=== PATIENT | female | born 1955 | race Caucasian/White ===

== ENCOUNTER 2022-03-21 04:39 | Emergency (ER) | payer OTHER ==
--- OUTSIDE RECORDS SUMMARY | 2022-03-21 04:54 | XMS REPORT | Continuity of Care Document ---
:1955 Author Organization [facility] t Address [address] [place] [address] [address]. [address]. [address] [place] [address] Care Team Providers Name Role Phone Christy Jaffe MD Primary Care Physician [phone] KEISHA KEBEDE Attending Clinician Unavailable KEISHA KEBEDE Attending Clinician Unavailable ISHMAEL ISABEL Attending Clinician Unavailable RAJI GARCIA Attending Clinician Unavailable LY DEXTER Attending Clinician Unavailable ALBA GONSALES Attending Clinician Unavailable KAN COURTNEY Attending Clinician Unavailable HALIMA ASIF Attending Clinician Unavailable HALIMA ASIF Attending Clinician Unavailable JAMES KYLE Attending Clinician Unavailable PARUL NOWAK Attending Clinician Unavailable NATALIIA GREWAL Attending Clinician Unavailable Arpan CARROLL PhD, Elza Aparicio Attending Clinician [phone] Nataliia Grewal MD Attending Clinician Oseas Meadows CRNA Attending Clinician Venancio Chery MD Attending Clinician Doctor Unassigned, [place] Attending Clinician Unavailable DIO GRAF Attending Clinician Unavailable CHRISTY JAFFE Attending Clinician Unavailable Christy Jaffe MD Attending Clinician [phone] aKn Courtney MD Attending Clinician PARUL PYLE Attending Clinician Unavailable Parul Pyle DO Attending Clinician Yessenia Lin MD Attending Clinician Team, [facility] Attending Clinician Unavailabhi e YESSENIA LIN Attending Clinician Unavailable YESSENIA LIN Attending Clinician Unavailable 2, [facility] Lab Attending Clinician Unavailable 1, [facility] Sleep Lab Bed Attending Clinician Unavailable Only, [facility] Test Attending Clinician Unavailable BOO_MONICA_JANICE Attending Clinician Unavailable EPIFANIO EDGAR Attending Clinician Unavailable Epifanio Edgar MD Attending Clinician Solo GIVENS, Amanda Attending Clinician Unavailable Radha CARROLL PHD, Jayne Attending Clinician Ishmael Isabel DO Attending Clinician Loco Freeman MD Attending Clinician BRODY FERRER Attending Clinician Unavailable Brody Ferrer MD Attending Clinician Kathy Mckeon PA-C Attending Clinician KATHY MCKEON Attending Clinician Unavailable SHWETHA PENNINGTON Attending Clinician Unavailable Shwetha Pennington MD Attending Clinician UNKNOWN, ATTENDING Attending Clinician Unavailable Nurse, [facility] Attending Clinician Unavailable Unknown, Attending Attending Clinician Unavailable HEIDI WILKES Attending Clinician Unavailable Screening/Nona, Eulalia Audio Attending Clinician Unavailable Heidi López Attending Clinician LOCO CALLES Attending Clinician Unavailable OSEAS HI Attending Clinician Unavailable Oseas Hi MD Attending Clinician Raji Garcia MD Attending Clinician Zaire Tobias MD Attending Clinician Gurjit GALLEGOS, Chante A Attending Clinician Giuliana PHD, Fany Putnam Attending Clinician FANY GIORDANO Attending Clinician Unavailable Petra Alvarez Attending Clinician Unavailable Frederick Sellers MD Attending Clinician Ashly Woodson Attending Clinician Unavailable Jose Alfredo GALLEGOS, Yasmin Romo Attending Clinician YASMIN VELIZ Attending Clinician Unavailable Loco Calles MD Attending Clinician CECIL HASTINGS Attending Clinician Unavailable PETRA DE PAZ Attending Clinician Unavailable VERÓNICA RIOS Attending Clinician Unavailable PRAVEEN FARAH Attending Clinician Unavailable YAZMIN DASH Attending Clinician Unavailable CHENTE ROLDAN Attending Clinician Unavailable ZULMA PEREZ Attending Clinician Unavailable QI PINEDO Attending Clinician Unavailable Oseas Ho Attending Clinician GILBERT MCCOY Attending Clinician Unavailable KEVIN BENNETT Attending Clinician Unavailable JAHAIRA NIX Attending Clinician Unavailable KRISTOFER TUBBS Attending Clinician Unavailable KEISHA KEBEDE Admitting Clinician Unavailable ISHMAEL ISABEL Admitting Clinician Unavailable RAJI GARCIA Admitting Clinician Unavailable LY DEXTER Admitting Clinician Unavailable ABLA GONSALES Admitting Clinician Unavailable Nataliia Grewal MD Admitting Clinician NATALIIA GREWAL Admitting Clinician Unavailable HALIMA ASIF Admitting Clinician Unavailable CHRISTY JAFFE Admitting Clinician Unavailable [place]APIN[place]O Admitting Clinician Unavailable EPIFANIO EDGAR Admitting Clinician Unavailable Epifanio Edgar MD Admitting Clinician Raji Garcia MD Admitting Clinician ZULMA PEREZ Admitting Clinician Unavailable Oseas Ho Admitting Clinician KEVIN BENNETT Admitting Clinician Unavailable VERÓNICA RIOS Admitting Clinician Unavailable Payers Payer Name Policy Type Policy Number Effective Date Expiration Date S ource [place] [id number] 2021 CLASSIC NO PREMIUM 00:00:00 O [facility] [id number] 2017 00:00:00 AARP MEDICARE RX [id number] SAVER PLUS (PDP) MEDICARE PART A [id number] 2020 \\T\\ B 00:00:00 Problems Condition Condition Condition Status Onset Resolution Last Treating Co mments Source Name Details Category Date Date Treatment Clinician Date 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 Added automatic ally from request for surgery [id number] Celiac Celiac Disease Active Overview: Univer s disease disease 3-09 Formattin ity o f 00:00: g of this note Medical might be Branch different from the original. Added automatic ally from request for surgery [id number] Thyroid Thyroid Disease Active Overview: Univ ers nodule nodule 8-02 Formattin ity of 00:00: g of this note Medical might be Branch different from the original. Added automatic ally from request for surgery [id number] Other Other Disease Active Overview: Univer s dysphagia dysphagia 8-02 Formattin i ty of 00:00: g of this note Medical might be Branch different from the original. Added automatic ally from request for surgery [id number] Obesity Obesity Disease Active Univers (BMI (BMI 6-16 ity of 30-39.9) 30-39.9) 00:00: [place] 00 Medical Branch Dizziness Dizziness Disease Active Uni vers 6-16 ity of 00:00: [place] 00 Medical Branch Meniere Meniere Disease Active Univers disease, disease, 6-16 ity of bilateral bilateral 00:[place] Bilateral Bilateral Disease Active Uni vers sensorineu sensorineu 4-20 it y of ral ral 00:00: [place] hearing hearing 00 Medical loss loss Branch Otalgia of Otalgia of Disease Active 2021-0 U nivers both ears both ears 4-20 ity of 00:00: [place] 00 Medical Branch Myalgia Myalgia Disease Active Univers 4-20 ity of 00:00: [place] [facility] Other Other Disease Active Univers depression depression 4-20 it y of 00:00: [place] [facility] Anxiety Anxiety Disease Active Univers 4-20 ity of 00:00: Medical Branch 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 4-20 ity of 00:00: Medical Branch Chronic Chronic Disease Active Univers allergic allergic 4-20 ity of rhinitis rhinitis 00:00: [place] [facility] Cigarette Cigarette Disease Active Uni vers nicotine nicotine 4-20 ity of dependence dependence [place] 00 Medical remission remission Bran ch Dental Dental Disease Active Univers cavities cavities 1-15 ity of 00:00: [place] [facility] Bronchiect Bronchiect Disease Active 2019-05 U nivers asis asis 2-30 ity of without without 00:00: [place] complicati complicati 00 Me dical on on Branch Essential Essential Disease Active 2019-05 Uni vers hypertensi hypertensi 2-30 it y of on on 00:00: [place] 00 Medical Branch Headache, Headache, Disease Active 2019-05 Uni vers unspecifie unspecifie 2-30 it y of d headache d headache 00:00[place] type type 00 Medical Branch Achilles Achilles Disease Active Unive rs tendonitis tendonitis 8-13 it y of , , 00:00: [place] bilateral bilateral 00 Medi milagros Branch Generalize Generalize Disease Active 2020- U nivers d d 5-15 ity of osteoarthr osteoarthr 00:[place]: [place] it[place] itis 00 Medical Branch Chronic Chronic Disease Active 2020- Univers fatigue fatigue 5-15 ity of 00:00: [place] 00 Medical Branch Other Other Disease Active 2020- Univers insomnia insomnia 5-15 ity of 00:00: [place] 00 Medical Branch History of History of Disease Active Overview : Univers colon colon 2-28 Formattin ity of polyps polyps 00:00: g of this [place] 00 note Medical might be Branch different from the original. Added automatic ally from request for surgery [id number] Mold Mold Disease Active 2018-05 Univers suspected suspected 0-20 ity of exposure exposure 00:00: [place] 00 Medical Branch Bronchitis Bronchitis Disease Active 2018-05 U nivers 0-18 ity of 00:00: [place] 00 Medical Branch Ankle pain Ankle Problem Active 2020-02-16 M emoria (finding) pain - 04:00:57 l (finding) 00:00: Jean Active 00 05/15/2018 Problem 02/16/2020 right ankle tear [facility] Fibromyalg Fibromyalg Disease Active 2017-05 U nivers ia ia 0-03 ity of 00:00: [place] [facility] Vaginal Vaginal Disease Active 2017-05 Univers dryness, dryness, 0-03 ity of menopausal menopausal 00:[place]: [place] [facility] [place] Polyarthra Polyarthra Disease Active 2017-05 U nivers lgia lgia 0-03 ity of 00:00: [place] [facility] Gluten Gluten Problem Active 2020-02-16 Brett leeann sensitivit sensitivit 04:00:57 l y y Jean (disorder) (disorder) Active Problem 02/16/2020 BLISTERS, DIARRHEA, HIVES BREAKOUT [facility] Allergy - Allergy - Problem Active 2020-02-16 Mem[facility] specialty specialty 04:00:57 l (qualifier (qualifier He rmann value) value) Active Problem 02/16/2020 [facility] Asthma Asthma Problem Active 2020-02-16 Brett leeann (disorder) (disorder) 04:00:57 l Active [place] Problem 02/16/2020 [facility] History of Past Illness Condition Condition Condition Status Onset Resolution Last Treating Co mments Source Name Details Category Date Date Treatment Clinician Date Achilles Achilles Problem 2019-052020-02-16 2020-02-16 [facility] tendinitis tendinitis 0-02 04:00:57 04:00:57 l , right , right 17:00: Jean leg leg 00 02/14/2020 02/16/2020 [facility] Allergies, Adverse Reactions, Alerts Allergy Allergy Status Severity Reaction(s) Onset Inactive Treating Comm ents Source Name Type Date Date Clinician Duloxeti Propensi Active Other - See Severe U nivers ne ty to comments 2-03 depressio ity o f adverse 00:00: n, weight [place] reaction 00 gain Medical s Branch DULOXETI DRUG Active Other-Cmnt Univ ers NE INGREDI 2-03 ity of 00:00: [place] 00 Medical Branch [place] Propensi Active Unknown - 2019-0 Uni vers ast ty to See comments 5-19 ity of adverse 00:00: [place] reaction 00 Medical s Branch MONTELUK DRUG Active Unknown-Cmnt 2019 Un anu AST INGREDI 5-19 ity of 00:00: [place] 00 Medical Branch Diphenhy Propensi Active Unknown - 2019-0 Second Uni vers dramine ty to See comments 2-18 dose is it y of Hcl adverse 00:00: very [place] reaction 00 activatio Medic al s n, like Branch she is on speed. DIPHENHY DRUG Active Unknown-Cmnt Un anu DRAMINE INGREDI 2-18 ity of HCL 00:00: [place] 00 Medical Branch Gluten Propensi Active Unknown - 2018-0 Unive rs ty to See comments 6-07 ity of adverse 00:00: [place] reaction 00 Medical s Branch Mold Propensi Active Unknown - 2018-0 Unive rs ty to See comments 6-07 ity of adverse 00:00: [place] reaction 00 Medical s Branch Sulfa Propensi Active Hives 2018-0 Univers (Sulfona ty to 6-07 ity of mide adverse 00:00: [place] Antibiot reaction 00 Medica l ics) s Branch GLUTEN DRUG Active Unknown-Cmnt 2018-0 Univ ers INGREDI 6-07 ity of 00:00: [place] 00 Medical Branch MOLD DRUG Active Unknown-Cmnt 2018-0 Univ ers INGREDI 6-07 ity of 00:00: [place] 00 Medical Branch SULFA Drug Active Hives 2018-0 Univers (SULFONA Class 6-07 ity of MIDE 00:00: [place] ANTIBIOT 00 Medical ICS) Branch Glutens Glutens Active Memoria l [place] sulfa sulfa Active Mild [facility] drugs drugs l [place] Social History Social Habit Start Date Stop Date Quantity Comments Source History of Current smoker University of tobacco use [facility] [place] Exposure to 2022-02-21 2022-03-03 Not sure University of SARS-CoV-2 00:00:00 09:23:00 [place] [facility] (event) Branch Alcohol intake 2022-03-01 2022-03-01 Current University of 00:00:00 00:00:00 non-drinker of [facility] alcohol (finding) Branch Tobacco use and 2021-12-132021-12-13 Smokeless tobacco Un iversity of exposure 00:00:00 00:00:00 non-user [facility] [place] Social History 2020-02-07 2020-02-07 Eric richardson 14:51:13 14:51:13 [birth year] Universit y of 00:00:00 00:00:00 [facility] [place] Smoking Status Start Date Stop Date Source Ex-smoker 2021-12-13 00:00:00 2021-12-13 00:00:00 Universi ty of [facility] [place] Medications Ordered Filled Start Stop Current Ordering Indication Dosage Frequency Signature Comments Components Source Medication Medication Date Date Medication? Clinician (SIG) Name Name neomycin-po 2021-05- Yes .5[in_u 0.5 Inch, Univers lymyxin-dex 0-25 10-28 s] Right Eye, i ty of amethasone 19:00: 16:59 QID, 12 Asher as (MAXITROL) 00 :00 doses, Medical 3.5 First dose Branch mg/g-10,000 on Tue unit/g-0.1 03/08/22 % at 1400, ophthalmic Last dose ointment on Fri 0.5 Inch 03/11/22 at 0800, Routine, PACU neomycin-po 2021-05- No .5[in_u 0.5 Inch, Univers lymyxin-dex 0-25 10-25 s] Right Eye, i ty of amethasone 19:00: 22:20 QID, 12 Asher as (MAXITROL) 00 :36 doses, Medical 3.5 First dose Branch mg/g-10,000 on Tue unit/g-0.1 03/08/22 % at 1400, ophthalmic Last dose ointment on Fri 0.5 Inch 03/11/22 at 0800, Routine, PACU acetaminoph 2021-05 Yes 650mg 650 mg, Un anu en 0-25 Oral, PRN, ity of (TYLENOL) 17:16: 1 dose, [place] tablet 650 44 Starting Medic al mg on Tue Branch 03/08/22 at 1216, Until Discontinu ed, Routine, Pain (scale 1-3), [facility] Recovery HYDROcodone 2021-05- No 1{tbl} 1 tablet, Univers -acetaminop 0-25 10-25 Oral, PRN, i ty of hen (NORCO 17:16: 17:20 1 dose, [place] as 5) 5-325 mg 44 :00 Starting Medi milagros tablet 1 on [facility] tablet 03/08/22 at 1216, Until Mon03/08/22 at 1220, Routine, Pain (scale 7-10), DSU Recovery HYDROcodone 2021-05- No 1{tbl} 1 tablet, Univers -acetaminop 0-25 10-25 Oral, PRN, i ty of hen (NORCO 17:16: 17:20 1 dose, [place] as 5) 5-325 mg 44 :00 Starting Medi milagros tablet 1 on [facility] tablet 03/08/22 at 1216, Until Mon03/08/22 at 1220, Routine, Pain (scale 7-10), [facility]SU Recovery acetaminoph 2021-05- No 650mg 650 mg, U nivers en 0-25 10-25 Oral, PRN, ity of (TYLENOL) 17:16: 22:20 1 dose, [place] tablet 650 44 :36 Starting Medic al mg on [facility] Branch 03/08/22 at 1216, Until Mon03/08/22 at 1720, Routine, Pain (scale 1-3), DSU Recovery ondansetron 2021-05- No Slow IV Un anu (ZOFRAN 0-25 10-25 Push, ONCE ity o f (PF)) 16:10: 16:29 INTRA [place] injection 00 :08 PROCEDURE, Medi milagros Starting Branch on Mon03/08/22 at 1110, Until Discontinu ed, Routine, Intra-op ergocalcife 2021-05 Yes Take by Uni vers rol, 0-25 mouth. ity of vitamin D2, 15:20: [place] (VITAMIN D 36 Medical ORAL) Branch vitamin C 2021-05 Yes 100mg Take 100 Uni vers 100 mg 0-25 mg by ity of tablet 15:20: mouth [place] 36 daily. Medical Branch Lactobacill 2021-05 Yes 1{capsu Take 1 U nivers us 0-25 le} capsule by ity of acidophilus 15:20: [place]. [place] (PROBIOTIC 36 Medical ACIDOPHILUS Branch ORAL) cyanocobala 2021-05 Yes 1000ug 1,000 mcg Univers min 1,000 0-25 by ity of mcg/mL 15:20: Intramuscu [place] injection 36 lar route Medic al weekly. Monday ergocalcife 2021-05 Yes Take by Uni vers rol, 0-25 mouth. ity of vitamin D2, 15:20: [place] (VITAMIN D 36 Medical ORAL) [place] vitamin C 2021-05 Yes 100mg Take 100 Uni vers 100 mg 0-25 mg by ity of tablet 15:20: mouth [place] 36 daily. Medical Branch Lactobacill 2021-05 Yes 1{capsu Take 1 U nivers us 0-25 le} capsule by ity of acidophilus 15:20: [place]. [place] (PROBIOTIC 36 Medical ACIDOPHILUS [place] ORAL) cyanocobala 2021-05 Yes 1000ug 1,000 mcg Univers min 1,000 0-25 by ity of mcg/mL 15:20: Intramuscu [place] injection 36 lar route Medic al weekly. Monday ergocalcife 2021-05 Yes Take by Uni vers rol, 0-25 mouth. ity of vitamin D2, 15:20: [place] (VITAMIN D 36 Medical ORAL) [place] vitamin C 2021-05 Yes 100mg Take 100 Uni vers 100 mg 0-25 mg by ity of tablet 15:20: mouth [place] 36 daily. Medical Branch Lactobacill 2021-05 Yes 1{capsu Take 1 U nivers us 0-25 le} capsule by ity of acidophilus 15:20: [place]. [place] (PROBIOTIC 36 [facility] ACIDOPHILUS [place] ORAL) cyanocobala 2021-05 Yes 1000ug 1,000 mcg Univers min 1,000 0-25 by ity of mcg/mL 15:20: Intramuscu [place] injection 36 lar route Medic al weekly. Monday ergocalcife 2021-05 Yes Take by Uni vers rol, 0-25 mouth. ity of vitamin D2, 15:20: [place] (VITAMIN D 36 Medical ORAL) [place] vitamin C 2021-05 Yes 100mg Take 100 Uni vers 100 mg 0-25 mg by ity of tablet 15:20: mouth [place] 36 daily. Medical Branch Lactobacill 2021-05 Yes 1{capsu Take 1 U nivers us 0-25 le} capsule by ity of acidophilus 15:20: [place]. [place] (PROBIOTIC 36 Medical ACIDOPHILUS [place] ORAL) ergocalcife 2021-05 Yes Take by Uni vers rol, 0-25 mouth. ity of vitamin D2, 15:20: [place] (VITAMIN D 36 Medical ORAL) [place] vitamin C 2021-05 Yes 100mg Take 100 Uni vers 100 mg 0-25 mg by ity of tablet 15:20: mouth [place] 36 daily. Medical Branch Lactobacill 2021-05 Yes 1{capsu Take 1 U nivers us 0-25 le} capsule by ity of acidophilus 15:20: [place]. [place] (PROBIOTIC 36 Medical ACIDOPHILUS Branch ORAL) ergocalcife 2021-05 Yes Take by Uni vers rol, 0-25 mouth. ity of vitamin D2, 15:20: [place] (VITAMIN D 36 Medical ORAL) [place] vitamin C 2021-05 Yes 100mg Take 100 Uni vers 100 mg 0-25 mg by ity of tablet 15:20: mouth [place] 36 daily. Medical Branch Lactobacill 2021-05 Yes 1{capsu Take 1 U nivers us 0-25 le} capsule by ity of acidophilus 15:20: mouth. [place] (PROBIOTIC 36 Medical ACIDOPHILUS Branch ORAL) cyanocobala 2021-05 Yes 1000ug 1,000 mcg Univers min 1,000 0-25 by ity of mcg/mL 15:20: Intramuscu [place] injection 36 lar route Medic al weekly. Monday ergocalcife 2021-05 Yes Take by Uni vers rol, 0-25 mouth. ity of vitamin D2, 15:20: [place] (VITAMIN D 36 Medical ORAL) [place] vitamin C 2021-05 Yes 100mg Take 100 Uni vers 100 mg 0-25 mg by ity of tablet 15:20: mouth [place] 36 daily. Medical Branch Lactobacill 2021-05 Yes 1{capsu Take 1 U nivers us 0-25 le} capsule by ity of acidophilus 15:20: [place]. [place] (PROBIOTIC 36 Medical ACIDOPHILUS Branch ORAL) cyanocobala 2021-05 Yes 1000ug 1,000 mcg Univers min 1,000 0-25 by ity of mcg/mL 15:20: Intramuscu [place] injection 36 lar route Medic al weekly. Monday ergocalcife 2021-05 Yes Take by Uni vers rol, 0-25 mouth. ity of vitamin D2, 15:20: [place] (VITAMIN D 36 Medical ORAL) Branch vitamin C 2021-05 Yes 100mg Take 100 Uni vers 100 mg 0-25 mg by ity of tablet 15:20: mouth [place] 36 daily. Medical Branch Lactobacill 2021-05 Yes 1{capsu Take 1 U nivers us 0-25 le} capsule by ity of acidophilus 15:20: mouth. [place] (PROBIOTIC 36 Medical ACIDOPHILUS Branch ORAL) ergocalcife 2021-05 Yes Take by Uni vers rol, 0-25 mouth. ity of vitamin D2, 15:20: [place] (VITAMIN D 36 Medical ORAL) Branch vitamin C 2021-05 Yes 100mg Take 100 Uni vers 100 mg 0-25 mg by ity of tablet 15:20: mouth [place] 36 daily. Medical Branch Lactobacill 2021-05 Yes 1{capsu Take 1 U nivers us 0-25 le} capsule by ity of acidophilus 15:20: mouth. [place] (PROBIOTIC 36 Medical ACIDOPHILUS Branch ORAL) bupivacaine 2021-05 Yes PRN, Univer s (preserv 0-25 Starting ity of free) 0.5% 14:37: on Mon (SENSORCAIN 00 03/08/22 Medi milagros E MPF) 0.5 at 0937, Branc h % (5 mg/mL) Intra-op 30 mL, lidocaine-e pinephrine (XYLOCAINE W/EPINEPHRI NE) 1 %-1:200,000 30 mL, NaCl 0.9% (NS) 30 mL bupivacaine 2021-05- No PRN, Unive rs (preserv 0-25 10-25 Starting ity of free) 0.5% 14:37: 22:20 on [place] (SENSORCAIN 00 :36 03/08/22 Medi milagros E MPF) 0.5 at 0937, Branc h % (5 mg/mL) Intra-op 30 mL, lidocaine-e pinephrine (XYLOCAINE W/EPINEPHRI NE) 1 %-1:200,000 30 mL, NaCl 0.9% (NS) 30 mL PHENYLephri 2021-05- No Slow IV Un anu ne 1000 0-25 10-25 Push, ONCE ity o f mcg/10 mL 13:44: 16:29 INTRA [place] in 0.9% 00 :08 PROCEDURE, Medica l NaCl Starting Branch syringe on Mon03/08/22 at 0844, Until Discontinu ed, Routine, Intra-op isosulfan 2021-05 Yes PRN, Univers blue 0-25 Starting ity of (LYMPHAZURI 13:14: on Mon [place] N) 1 % 00 03/08/22 Medical injection at 0814, Branch Until Discontinu ed, Routine, Intra-op isosulfan 2021-05- No PRN, Univers blue 0-25 10-25 Starting ity of (LYMPHAZURI 13:14: 22:20 on Mon [place] as N) 1 % 00 :36 03/08/22 Medical injection at 0814, Branch Until Mon03/08/22 at 1720, Routine, Intra-op water for 2021-05 Yes PRN, Univers irrigation 0-25 Starting ity o f irrigation 13:09: on solution 03/08/22 Medical at 0809, Branch Until Discontinu ed, Routine, Intra-op heparin 2021-05 Yes PRN, Univers lock flush 0-25 Starting ity o f (HEPARIN 13:09: on Mon LOCKFLUSH(P 00 03/08/22 Medi milagros ORCINE)(PF) at 0809, Bran ch ) 100 Until unit/mL Discontinu injection ed, Routine, Intra-op NaCl 0.9% 2021-05 Yes PRN, Univers (NS) 0-25 Starting ity of injection 13:09: on Mon [place] 03/08/22 Medical at 0809, Branch Until Discontinu ed, Routine, Intra-op hydrogen 2021-05 Yes PRN, Univers peroxide 3 0-25 Starting ity o f % topical 13:09: on solution 03/08/22 Medical at 0809, Branch Until Discontinu ed, Routine, Intra-op water for 2021-05 Yes PRN, Univers irrigation 0-25 Starting ity o f irrigation 13:09: on solution 03/08/22 Medical at 0809, Branch Until Discontinu ed, Routine, Intra-op water for 2021-05- No PRN, Univers irrigation 0-25 10-25 Starting ity of irrigation 13:09: 22:20 on [place] solution 00 :36 03/08/22 Medical at 0809, Branch Until Mon03/08/22 at 1720, Routine, Intra-op heparin 2021-05- No PRN, Univers lock flush 0-25 10-25 Starting ity of (HEPARIN 13:09: 22:20 on [facility] LOCKFLUSH(P 00 :36 03/08/22 Medi milagros ORCINE)(PF) at 0809, Bran ch ) 100 Until e unit/mL 03/08/22 injection at 1720, Routine, Intra-op NaCl 0.9% 2021-05- No PRN, Univers (NS) 0-25 10-25 Starting ity of injection 13:09: 22:20 on [facility] [place] 00 :36 03/08/22 Medical at 0809, Branch Until Mon03/08/22 at 1720, Routine, Intra-op hydrogen 2021-05- No PRN, Univers peroxide 3 0-25 10-25 Starting ity of % topical 13:09: 22:20 on [facility] solution 00 :36 03/08/22 Medical at 0809, Branch Until Mon03/08/22 at 1720, Routine, Intra-op water for 2021-05- No PRN, Univers irrigation 0-25 10-25 Starting ity of irrigation 13:09: 22:20 on [facility] [place] solution 00 :36 03/08/22 Medical at 0809, Branch Until Mon03/08/22 at 1720, Routine, Intra-op ceFAZolin 2021-05- No Intravenou U nivers (ANCEF) 0-25 10-25 s, ONCE ity of injection 13:02: 16:29 INTRA [place] 00 :08 PROCEDURE, Medical Starting Branch on Mon03/08/22 at 0802, Until Discontinu ed, HECTOR, Intra-op Tc 99m-ulises. 2021-05- No [id number] 1.1mCi 1.1 Univers sulfur 0-25 10-25 millicurie ity of colloid 13:00: 12:47 , [place] injection 00 :00 Intraderma Medi milagros 1.1 l, ONCE, 1 Branch millicurie dose, On Mon03/08/22 at 0800, Routine rocuronium 2021-05- No IV Push, Un anu (ZEMURON) 0-25 10-25 ONCE INTRA ity of injection 12:46: 16:29 PROCEDURE, [place] 00 :08 Starting Medical on [facility] Branch 03/08/22 at 0746, Until Discontinu ed, Routine, Intra-op propofoL IV 2021-05- No Intravenou Univers infusion 0-25 10-25 s, ONCE ity of 12:46: 16:29 INTRA [place] 00 :08 PROCEDURE, Medical Starting Branch on Mon03/08/22 at 0746, Until Discontinu ed, Routine, Intra-op FENTanyl PF 2021-05- No Intravenou Univers (SUBLIMAZE 0-25 10-25 s, ONCE ity o f (PF)) 12:45: 16:29 INTRA [place] injection 00 :08 PROCEDURE, Medi milagros Starting Branch on Mon03/08/22 at 0745, Until Discontinu ed, Routine, Intra-op dexamethaso 2021-05- No IV Push, U nivers ne 0-25 10-25 ONCE INTRA ity of (DECADRON 12:45: 16:29 PROCEDURE, [place] PHOSPHATE) 00 :08 Starting Medic al injection on [facility] Branch 03/08/22 at 0745, Until Discontinu ed, Routine, Intra-op lidocaine 2021-05- No Intravenou U nivers 1% 0-25 10-25 s, ONCE ity of (XYLOCAINE) 12:44: 16:29 [place]TRA [place] 100 mg/10 00 :08 PROCEDURE, [facility]ros mL (1 %) Starting Branch injection on 03/08/22 at 0744, Until Discontinu ed, Routine, Intra-op lactated 2021-05- No IV [facility] ringers IV 0-25 10-25 Infusion, ity of infusion 12:38: 16:29 CONTINUOUS [place] 00 :08 PRN, Medical Starting Branch on Mon03/08/22 at 0738, Until Discontinu ed, Routine, Intra-op midazolam 2021-05- No IV Push, Uni vers (VERSED) 0-25 10-25 ONCE INTRA ity of injection 12:38: 16:29 PROCEDURE, [place] 00 :08 Starting Medical on [facility] 03/08/22 at 0738, Until Discontinu ed, Routine, Intra-op cyanocobala 2021-05 Yes 1000ug 1,000 mcg [facility] min 1,000 0-25 by ity of mcg/mL 11:50: Intramuscu [place] injection 52 lar route Medic al weekly. Branch monday acetaminoph 2021-05- No 1000mg 1,000 mg, Univers en 0-25 10-25 Oral, ity of (TYLENOL) 11:45: 12:09 ONCE, 1 [place] 00 :00 dose, On Medical 1,000 mg [facility] 03/08/22 at 0645, Routine celecoxib 2021-05- No 200mg 200 mg, Uni vers (CELEBREX) 0-25 10-25 Oral, ity of capsule 200 11:45: 12:09 ONCE, 1 [place] mg 00 :00 dose, On Medical [facility] 03/08/22 at 0645, Routine acetaminoph 2021-05- No 1000mg 1,000 mg, Univers en 0-25 10-25 Oral, ity of (TYLENOL) 11:45: 12:09 ONCE, 1 [place] 00 :00 dose, On Medical 1,000 mg [facility] 03/08/22 at 0645, Routine celecoxib 2021-05- No 200mg 200 mg, Uni vers (CELEBREX) 0-25 10-25 Oral, ity of capsule 200 11:45: 12:09 ONCE, 1 [place] mg 00 :00 dose, On Medical [facility] 03/08/22 at 0645, Routine ergocalcife 2021-05 Yes Take by Uni vers rol, 0-25 mouth. ity of vitamin D2, 11:38: [place] (VITAMIN D Medical ORAL) [place] vitamin C 2021-05 Yes 100mg Take 100 Uni vers 100 mg 0-25 mg by ity of tablet 11:38: mouth [place] 03 daily. [facility] Branch Lactobacill 2021-05 Yes 1{capsu Take 1 U nivers us 0-25 le} capsule by [place]y of acidophilus 11:38: [place]. [place] (PROBIOTIC 03 Medical ACIDOPHILUS [place] ORAL) celecoxib 2021-05 Yes [id number] 200mg Take 1 [facility] (CELEBREX) 0-25 [id number] capsule by it y of 200 mg 00:00: mouth in [place] capsule 00 the Medical morning Branch and 1 capsule in the evening. Take with meals. traMADoL 50 2021-05 Yes [id number] 50mg Take 1 Univ ers mg tablet 0-25 tablet by ity o f 00:00: mouth [place] 00 every 6 Medical (six) Branch hours as needed for Pain (scale 7-10) for up to 20 doses. Indication s: acute pain celecoxib 2021-05 Yes [id number] 200mg Take 1 [facility] (CELEBREX) 0-25 [id number] capsule by it y of 200 mg 00:00: mouth in [place] capsule 00 the Medical morning Branch and 1 capsule in the evening. Take with meals. traMADoL 50 2021-05 Yes [id number] 50mg Take 1 Univ ers mg tablet 0-25 tablet by ity o f 00:00: mouth [place] 00 every 6 Medical (six) Branch hours as needed for Pain (scale 7-10) for up to 20 doses. Indication s: acute pain celecoxib 2021-05 Yes [id number] 200mg Take 1 [facility] (CELEBREX) 0-25 [id number] capsule by it y of 200 mg 00:00: mouth in [place] capsule 00 the Medical morning Branch and 1 capsule in the evening. Take with meals. traMADoL 50 2021-05 Yes [id number] 50mg Take 1 Univ ers mg tablet 0-25 tablet by ity o f 00:00: mouth [place] 00 every 6 Medical (six) Branch hours as needed for Pain (scale 7-10) for up to 20 doses. Indication s: acute pain celecoxib 2021-05 Yes [id number] 200mg Take 1 [facility] (CELEBREX) 0-25 [id number] capsule by it y of 200 mg 00:00: mouth in [place] capsule 00 the Medical morning Branch and 1 capsule in the evening. Take with meals. traMADoL 50 2021-05 Yes [id number] 50mg Take 1 Univ ers mg tablet 0-25 tablet by ity o f 00:00: mouth [place] 00 every 6 Medical (six) Branch hours as needed for Pain (scale 7-10) for up to 20 doses. Indication s: acute pain acetaminoph 2021-05- Yes [id number] 650mg Take 2 [facility] en 0-25 11-03 43301 tablets by ity of (TYLENOL) 00:00: 04:59 mouth [place] 325 mg 00 :00 every 6 Medical tablet (six) Branch hours for 30 doses. acetaminoph 2021-05- Yes [id number] 650mg Take 2 Univers en 0-25 11- 72617 tablets by ity of (TYLENOL) 00:00: 04:59 mouth [place] 325 mg 00 :00 every 6 Medical tablet (six) Branch hours for 30 doses. acetaminoph 2021-05- Yes [id number] 650mg Take 2 Univers en 0-25 11- 85481 tablets by ity of (TYLENOL) 00:00: 04:59 mouth [place] 325 mg 00 :00 every 6 Medical tablet (six) Branch hours for 30 doses. acetaminoph 2021-05- Yes [id number] 650mg Take 2 Univers en 0-25 11- 53009 tablets by ity of (TYLENOL) 00:00: 04:59 mouth [place] 325 mg 00 :00 every 6 Medical tablet (six) Branch hours for 30 doses. cyanocobala 2021-05- No [id number] 2000ug Univers min (DODEX) 0-18 10-18 ity of injection 23:15: 22:10 [place] 2,000 mcg 00 :23 Medical Branch cyanocobala 2021-05- No [id number] 2000ug [facility] min (DODEX) 0-18 10-18 ity of injection 23:15: 22:10 [place] 2,000 mcg 00 :23 [facility] Branch alendronate 2021-05 Yes [id number] 35mg Take 1 [facility] 35 mg 0-18 tablet by ity of tablet 00:00: mouth [place] 00 weekly. Medical Branch alendronate 2021-05 Yes [id number] 35mg Take 1 [facility] 35 mg 0-18 tablet by ity of tablet 00:00: mouth [place] 00 weekly. Medical Branch alendronate 2021-05 Yes [id number] 35mg Take 1 [facility] 35 mg 0-18 tablet by ity of tablet 00:00: mouth [place] 00 weekly. Medical Branch alendronate 2021-05 Yes [id number] 35mg Take 1 [facility] 35 mg 0-18 tablet by ity of tablet 00:00: mouth [place] 00 weekly. Medical Branch alendronate 2021-05 Yes [id number] 35mg Take 1 [facility] 35 mg 0-18 tablet by ity of tablet 00:00: mouth [place] 00 weekly. [facility] Branch alendronate 2021-05 Yes [id number] 35mg Take 1 [facility] 35 mg 0-18 tablet by ity of tablet 00:00: mouth [place] 00 weekly. Medical Branch alendronate 2021-05 Yes [id number] 35mg Take 1 [facility] 35 mg 0-18 tablet by ity of tablet 00:00: mouth [place] 00 weekly. Medical Branch alendronate 2021-05 Yes [id number] 35mg Take 1 [facility] 35 mg 0-18 tablet by ity of tablet 00:00: mouth [place] 00 weekly. Medical Branch proMETHazin 2021-05 Yes [id number] 25mg Take 1 Univers e 25 mg 0-03 tablet by ity of tablet 00:00: mouth [place] 00 every 6 Medical (six) Branch hours. For vertigo, nausea, dizziness. proMETHazin 2021-05 Yes [id number] 25mg Take 1 Univers e 25 mg 0-03 tablet by ity of tablet 00:00: mouth [place] 00 every 6 Medical (six) Branch hours. For vertigo, nausea, dizziness. proMETHazin 2021-05 Yes [id number] 25mg Take 1 [facility] e 25 mg 0-03 tablet by ity of tablet 00:00: mouth [place] 00 every 6 Medical (six) Branch hours. For vertigo, nausea, dizziness. proMETHazin 2021-05 Yes [id number] 25mg Take 1 [facility] e 25 mg 0-03 tablet by ity of tablet 00:00: mouth [place] 00 every 6 Medical (six) Branch hours. For vertigo, nausea, dizziness. proMETHazin 2021-05 Yes [id number] 25mg Take 1 [facility] e 25 mg 0-03 tablet by ity of tablet 00:00: mouth [place] 00 every 6 Medical (six) Branch hours. For vertigo, nausea, dizziness. proMETHazin 2021-05 Yes [id number] 25mg Take 1 [facility] e 25 mg 0-03 tablet by ity of tablet 00:00: mouth [place] 00 every 6 Medical (six) Branch hours. For vertigo, nausea, dizziness. proMETHazin 2021-05 Yes [id number] 25mg Take 1 Univers e 25 mg 0-03 tablet by ity of tablet 00:00: mouth [place] 00 every 6 Medical (six) Branch hours. For vertigo, nausea, dizziness. proMETHazin 2021-05 Yes [id number] 25mg Take 1 Univers e 25 mg 0-03 tablet by ity of tablet 00:00: mouth [place] 00 every 6 Medical (six) Branch hours. For vertigo, nausea, dizziness. proMETHazin 2021-05 Yes [id number] 25mg Take 1 Univers e 25 mg 0-03 tablet by ity of tablet 00:00: mouth [place] 00 every 6 Medical (six) Branch hours. For vertigo, nausea, dizziness. proMETHazin 2021-05 Yes [id number] 25mg Take 1 Univers e 25 mg 0-03 tablet by ity of tablet 00:00: mouth [place] 00 every 6 Medical (six) Branch hours. For vertigo, nausea, dizziness. proMETHazin 2021-05 Yes [id number] 25mg Take 1 Univers e 25 mg 0-03 tablet by ity of tablet 00:00: mouth [place] 00 every 6 Medical (six) Branch hours. For vertigo, nausea, dizziness. proMETHazin 2021-05 Yes [id number] 25mg Take 1 [facility] e 25 mg 0-03 tablet by ity of tablet 00:00: mouth [place] 00 every 6 Medical (six) Branch hours. For vertigo, nausea, dizziness. proMETHazin 2021-05 Yes [id number] 25mg Take 1 Univers e 25 mg 0-03 tablet by ity of tablet 00:00: mouth [place] 00 every 6 Medical (six) Branch hours. For vertigo, nausea, dizziness. proMETHazin 2021-05 Yes [id number] 25mg Take 1 Univers e 25 mg 0-03 tablet by ity of tablet 00:00: mouth [place] 00 every 6 Medical (six) Branch hours. For vertigo, nausea, dizziness. proMETHazin 2021-05 Yes [id number] 25mg Take 1 Univers e 25 mg 0-03 tablet by ity of tablet 00:00: mouth [place] 00 every 6 Medical (six) Branch hours. For vertigo, nausea, dizziness. proMETHazin 2021-05 Yes [id number] 25mg Take 1 Univers e 25 mg 0-03 tablet by ity of tablet 00:00: mouth [place] 00 every 6 Medical (six) Branch hours. For vertigo, nausea, dizziness. proMETHazin 2021-05 Yes [id number] 25mg Take 1 [facility] e 25 mg 0-03 tablet by ity of tablet 00:00: mouth [place] 00 every 6 Medical (six) Branch hours. For vertigo, nausea, dizziness. proMETHazin 2021-05 Yes [id number] 25mg Take 1 [facility] e 25 mg 0-03 tablet by ity of tablet 00:00: mouth [place] 00 every 6 Medical (six) Branch hours. For vertigo, nausea, dizziness. proMETHazin 2021-05 Yes [id number] 25mg Take 1 [facility] e 25 mg 0-03 tablet by ity of tablet 00:00: mouth [place] 00 every 6 Medical (six) Branch hours. For vertigo, nausea, dizziness. proMETHazin 2021-05 Yes [id number] 25mg Take 1 Univers e 25 mg 0-03 tablet by ity of tablet 00:00: mouth [place] 00 every 6 Medical (six) Branch hours. For vertigo, nausea, dizziness. proMETHazin 2021-05 Yes [id number] 25mg Take 1 Univers e 25 mg 0-03 tablet by ity of tablet 00:00: mouth [place] 00 every 6 Medical (six) Branch hours. For vertigo, nausea, dizziness. proMETHazin 2021-05 Yes [id number] 25mg Take 1 [facility] e 25 mg 0-03 tablet by ity of tablet 00:00: mouth [place] 00 every 6 Medical (six) Branch hours. For vertigo, nausea, dizziness. proMETHazin 2021-05 Yes [id number] 25mg Take 1 [facility] e 25 mg 0-03 tablet by ity of tablet 00:00: mouth [place] 00 every 6 Medical (six) Branch hours. For vertigo, nausea, dizziness. proMETHazin 2021-05 Yes [id number] 25mg Take 1 [facility] e 25 mg 0-03 tablet by ity of tablet 00:00: mouth [place] 00 every 6 Medical (six) Branch hours. For vertigo, nausea, dizziness. cyclobenzap Yes [id number] 10mg Take 1 [facility] rine 10 mg 9-14 tablet by ity of tablet 00:00: mouth 3 [place] 00 (three) Medical times Branch daily as needed for Muscle Spasms. As needed for severe muscle pain. ipratropium Yes [id number] 2{spray Use 2 Univers 21 mcg 9-14 } Sprays in ity of (0.03 %) 00:00: each [place] nasal spray 00 nostril Medic al every 12 Branch (twelve) hours. colesevelam Yes [id number] 1250mg Take 2 [facility] 625 mg 9-14 [id number] tablets by ity o f tablet 00:00: mouth in [place] 00 the Medical morning Branch and 2 tablets at noon and 2 tablets in the evening. Take before meals. SERTraline 2021-0 Yes [id number] 100mg Take 1 [facility] 100 mg 9-14 tablet by ity of tablet 00:00: mouth at [place] [address] bedtime. Medical Branch traMADoL 50 2021-0 Yes [id number] 50mg Take 1 Univ ers mg tablet 9-14 tablet by ity o f 00:00: mouth [place] 00 every 6 Medical (six) Branch hours as needed (chronic joint pain, chronic muscle pain). Indication s: chronic pain cyclobenzap 2021-0 Yes [id number] 10mg Take 1 [facility] rine 10 mg 9-14 tablet by ity of tablet 00:00: mouth 3 [place] [address] (three) Medical times [place] daily as needed for Muscle Spasms. As needed for severe muscle pain. ipratropium 2021-0 Yes [id number] 2{spray Use 2 Univers 21 mcg 9-14 } Sprays in ity of (0.03 %) 00:00: each [place] nasal spray 00 nostril Medic al every 12 Branch (twelve) hours. colesevelam 0 Yes [id number] 1250mg Take 2 [facility] 625 mg 9-14 [id number] tablets by ity o f tablet 00:00: mouth in [place] 00 the Medical morning Branch and 2 tablets at noon and 2 tablets in the evening. Take before meals. SERTraline 2021-0 Yes [id number] 100mg Take 1 [facility] 100 mg 9-14 tablet by ity of tablet 00:00: mouth at [place] [address] bedtime. Medical Branch traMADoL 50 2021-0 Yes [id number] 50mg Take 1 Univ ers mg tablet 9-14 tablet by ity o f 00:00: mouth [place] 00 every 6 Medical (six) Branch hours as needed (chronic joint pain, chronic muscle pain). Indication s: chronic pain cyclobenzap 2021-0 Yes [id number] 10mg Take 1 [facility] rine 10 mg 9-14 tablet by ity of tablet 00:00: mouth 3 [place] [address] (three) Medical times Branch daily as needed for Muscle Spasms. As needed for severe muscle pain. ipratropium 2021-0 Yes [id number] 2{spray Use 2 Univers 21 mcg 9-14 } Sprays in ity of (0.03 %) 00:00: each [place] nasal spray 00 nostril Medic al every 12 Branch (twelve) hours. colesevelam Yes [id number] 1250mg Take 2 [facility] 625 mg 9-14 [id number] tablets by ity o f tablet 00:00: mouth in [place] 00 the Medical morning Branch and 2 tablets at noon and 2 tablets in the evening. Take before meals. SERTraline Yes [id number] 100mg Take 1 [facility] 100 mg 9-14 tablet by ity of tablet 00:00: mouth at [place] 00 bedtime. Medical Branch traMADoL 50 0 Yes [id number] 50mg Take 1 Univ ers mg tablet 9-14 tablet by ity o f 00:00: mouth [place] 00 every 6 Medical (six) Branch hours as needed (chronic joint pain, chronic muscle pain). Indication s: chronic pain cyclobenzap 0 Yes [id number] 10mg Take 1 [facility] rine 10 mg 9-14 tablet by ity of tablet 00:00: mouth 3 [place] 00 (three) Medical times Branch daily as needed for Muscle Spasms. As needed for severe muscle pain. ipratropium Yes [id number] 2{spray Use 2 Univers 21 mcg 9-14 } Sprays in ity of (0.03 %) 00:00: each [place] nasal spray 00 nostril Medic al every 12 Branch (twelve) hours. colesevelam Yes [id number] 1250mg Take 2 [facility] 625 mg 9-14 [id number] tablets by ity o f tablet 00:00: mouth in [place] 00 the Medical morning Branch and 2 tablets at noon and 2 tablets in the evening. Take before meals. SERTraline 2021-0 Yes [id number] 100mg Take 1 [facility] 100 mg 9-14 tablet by ity of tablet 00:00: mouth at [place] 00 bedtime. Medical Branch traMADoL 50 2021-0 Yes [id number] 50mg Take 1 Univ ers mg tablet 9-14 tablet by ity o f 00:00: mouth [place] 00 every 6 Medical (six) Branch hours as needed (chronic joint pain, chronic muscle pain). Indication s: chronic pain cyclobenzap 2021-0 Yes [id number] 10mg Take 1 [facility] rine 10 mg 9-14 tablet by ity of tablet 00:00: mouth 3 [place] (three) Medical times Branch daily as needed for Muscle Spasms. As needed for severe muscle pain. ipratropium Yes [id number] 2{spray Use 2 Univers 21 mcg 9-14 } Sprays in ity of (0.03 %) 00:00: each [place] nasal spray 00 nostril Medic al every 12 Branch (twelve) hours. colesevelam Yes [id number] 1250mg Take 2 [facility] 625 mg 9-14 [id number] tablets by ity o f tablet 00:00: mouth in [place] 00 the Medical morning Branch and 2 tablets at noon and 2 tablets in the evening. Take before meals. SERTraline Yes [id number] 100mg Take 1 [facility] 100 mg 9-14 tablet by ity of tablet 00:00: mouth at [place] [address] bedtime. Medical Branch traMADoL 50 Yes [id number] 50mg Take 1 Univ ers mg tablet 9-14 tablet by ity o f 00:00: mouth [place] 00 every 6 Medical (six) Branch hours as needed (chronic joint pain, chronic muscle pain). Indication s: chronic pain cyclobenzap Yes [id number] 10mg Take 1 [facility] rine 10 mg 9-14 tablet by ity of tablet 00:00: mouth 3 [place] 00 (three) Medical times Branch daily as needed for Muscle Spasms. As needed for severe muscle pain. ipratropium Yes [id number] 2{spray Use 2 [facility] 21 mcg 9-14 } Sprays in ity of (0.03 %) 00:00: each [place] nasal spray 00 nostril Medic al every 12 Branch (twelve) hours. colesevelam 2021-0 Yes [id number] 1250mg Take 2 [facility] 625 mg 9-14 [id number] tablets by ity o f tablet 00:00: mouth in [place] 00 the Medical morning Branch and 2 tablets at noon and 2 tablets in the evening. Take before meals. SERTraline 0 Yes [id number] 100mg Take 1 [facility] 100 mg 9-14 tablet by ity of tablet 00:00: mouth at [place] [address] bedtime. Medical Branch traMADoL 50 2021-0 Yes [id number] 50mg Take 1 Univ ers mg tablet 9-14 tablet by ity o f 00:00: mouth [place] 00 every 6 Medical (six) Branch hours as needed (chronic joint pain, chronic muscle pain). Indication s: chronic pain cyclobenzap 2021-0 Yes [id number] 10mg Take 1 [facility] rine 10 mg 9-14 tablet by ity of tablet 00:00: mouth 3 [place] 00 (three) Medical times Branch daily as needed for Muscle Spasms. As needed for severe muscle pain. ipratropium 0 Yes [id number] 2{spray Use 2 [facility] 21 mcg 9-14 } Sprays in ity of (0.03 %) 00:00: each [place] nasal spray 00 nostril Medic al every 12 Branch (twelve) hours. colesevelam 0 Yes [id number] 1250mg Take 2 [facility] 625 mg 9-14 [id number] tablets by ity o f tablet 00:00: mouth in [place] 00 the Medical morning Branch and 2 tablets at noon and 2 tablets in the evening. Take before meals. SERTraline 0 Yes [id number] 100mg Take 1 [facility] 100 mg 9-14 tablet by ity of tablet 00:00: mouth at [place] 00 bedtime. Medical Branch traMADoL 50 2021-0 Yes [id number] 50mg Take 1 Univ ers mg tablet 9-14 tablet by ity o f 00:00: mouth [place] 00 every 6 Medical (six) Branch hours as needed (chronic joint pain, chronic muscle pain). Indication s: chronic pain cyclobenzap 2021-0 Yes [id number] 10mg Take 1 [facility] rine 10 mg 9-14 tablet by ity of tablet 00:00: mouth 3 [place] 00 (three) Medical times Branch daily as needed for Muscle Spasms. As needed for severe muscle pain. ipratropium 2021-0 Yes [id number] 2{spray Use 2 [facility] 21 mcg 9-14 } Sprays in ity of (0.03 %) 00:00: each [place] nasal spray 00 nostril Medic al every 12 Branch (twelve) hours. colesevelam 2021-0 Yes [id number] 1250mg Take 2 [facility] 625 mg 9-14 [id number] tablets by ity o f tablet 00:00: mouth in [place] 00 the Medical morning Branch and 2 tablets at noon and 2 tablets in the evening. Take before meals. SERTraline 2021-0 Yes [id number] 100mg Take 1 [facility] 100 mg 9-14 tablet by ity of tablet 00:00: mouth at [place] 00 bedtime. Medical Branch traMADoL 50 2021-0 Yes [id number] 50mg Take 1 Univ ers mg tablet 9-14 tablet by ity o f 00:00: mouth [place] 00 every 6 Medical (six) Branch hours as needed (chronic joint pain, chronic muscle pain). Indication s: chronic pain cyclobenzap 2021-0 Yes [id number] 10mg Take 1 [facility] rine 10 mg 9-14 tablet by ity of tablet 00:00: mouth 3 [place] 00 (three) Medical times Branch daily as needed for Muscle Spasms. As needed for severe muscle pain. ipratropium 2021-0 Yes [id number] 2{spray Use 2 [facility] 21 mcg 9-14 } Sprays in ity of (0.03 %) 00:00: each [place] nasal spray 00 nostril Medic al every 12 Branch (twelve) hours. colesevelam 2021-0 Yes [id number] 1250mg Take 2 [facility] 625 mg 9-14 [id number] tablets by ity o f tablet 00:00: mouth in [place] 00 the Medical morning Branch and 2 tablets at noon and 2 tablets in the evening. Take before meals. SERTraline 2021-0 Yes [id number] 100mg Take 1 [facility] 100 mg 9-14 tablet by ity of tablet 00:00: mouth at [place] 00 bedtime. Medical Branch traMADoL 50 2021-0 Yes [id number] 50mg Take 1 Univ ers mg tablet 9-14 tablet by ity o f 00:00: mouth [place] 00 every 6 Medical (six) Branch hours as needed (chronic joint pain, chronic muscle pain). Indication s: chronic pain cyclobenzap 2021-0 Yes [id number] 10mg Take 1 [facility] rine 10 mg 9-14 tablet by ity of tablet 00:00: mouth 3 [place] 00 (three) Medical times Branch daily as needed for Muscle Spasms. As needed for severe muscle pain. ipratropium 2021-0 Yes [id number] 2{spray Use 2 [facility] 21 mcg 9-14 } Sprays in ity of (0.03 %) 00:00: each [place] nasal spray 00 nostril Medic al every 12 Branch (twelve) hours. colesevelam 2021-0 Yes [id number] 1250mg Take 2 [facility] 625 mg 9-14 [id number] tablets by ity o f tablet 00:00: mouth in [place] 00 the Medical morning Branch and 2 tablets at noon and 2 tablets in the evening. Take before meals. SERTraline 2021-0 Yes [id number] 100mg Take 1 [facility] 100 mg 9-14 tablet by ity of tablet 00:00: mouth at [place] [address] bedtime. Medical Branch traMADoL 50 2021-0 Yes [id number] 50mg Take 1 Univ ers mg tablet 9-14 tablet by ity o f 00:00: mouth [place] 00 every 6 Medical (six) Branch hours as needed (chronic joint pain, chronic muscle pain). Indication s: chronic pain cyclobenzap 2021-0 Yes [id number] 10mg Take 1 [facility] rine 10 mg 9-14 tablet by ity of tablet 00:00: mouth 3 [place] [address] (three) Medical times Branch daily as needed for Muscle Spasms. As needed for severe muscle pain. ipratropium 0 Yes [id number] 2{spray Use 2 [facility] 21 mcg 9-14 } Sprays in ity of (0.03 %) 00:00: each [place] nasal spray 00 nostril Medic al every 12 Branch (twelve) hours. colesevelam 0 Yes [id number] 1250mg Take 2 [facility] 625 mg 9-14 [id number] tablets by ity o f tablet 00:00: mouth in [place] 00 the Medical morning Branch and 2 tablets at noon and 2 tablets in the evening. Take before meals. SERTraline 2021-0 Yes [id number] 100mg Take 1 [facility] 100 mg 9-14 tablet by ity of tablet 00:00: mouth at [place] [address] bedtime. Medical Branch traMADoL 50 2021-0 Yes [id number] 50mg Take 1 Univ ers mg tablet 9-14 tablet by ity o f 00:00: mouth [place] 00 every 6 Medical (six) Branch hours as needed (chronic joint pain, chronic muscle pain). Indication s: chronic pain cyclobenzap 2021-0 Yes [id number] 10mg Take 1 [facility] rine 10 mg 9-14 tablet by ity of tablet 00:00: mouth 3 [place] [address] (three) Medical times Branch daily as needed for Muscle Spasms. As needed for severe muscle pain. ipratropium 2021-0 Yes [id number] 2{spray Use 2 [facility] 21 mcg 9-14 } Sprays in ity of (0.03 %) 00:00: each [place] nasal spray 00 nostril Medic al every 12 Branch (twelve) hours. colesevelam 2021-0 Yes [id number] 1250mg Take 2 [facility] 625 mg 9-14 [id number] tablets by ity o f tablet 00:00: mouth in [place] 00 the Medical morning Branch and 2 tablets at noon and 2 tablets in the evening. Take before meals. SERTraline 2021-0 Yes [id number] 100mg Take 1 [facility] 100 mg 9-14 tablet by ity of tablet 00:00: mouth at [place] [address] bedtime. Medical Branch traMADoL 50 2021-0 Yes [id number] 50mg Take 1 Univ ers mg tablet 9-14 tablet by ity o f 00:00: mouth [place] 00 every 6 Medical (six) Branch hours as needed (chronic joint pain, chronic muscle pain). Indication s: chronic pain cyclobenzap 2021-0 Yes [id number] 10mg Take 1 [facility] rine 10 mg 9-14 tablet by ity of tablet 00:00: mouth 3 [place] 00 (three) Medical times Branch daily as needed for Muscle Spasms. As needed for severe muscle pain. ipratropium 2021-0 Yes [id number] 2{spray Use 2 [facility] 21 mcg 9-14 } Sprays in ity of (0.03 %) 00:00: each [place] nasal spray 00 nostril Medic al every 12 Branch (twelve) hours. colesevelam 2021-0 Yes [id number] 1250mg Take 2 [facility] 625 mg 9-14 [id number] tablets by ity o f tablet 00:00: mouth in [place] 00 the Medical morning Branch and 2 tablets at noon and 2 tablets in the evening. Take before meals. SERTraline 2021-0 Yes [id number] 100mg Take 1 [facility] 100 mg 9-14 tablet by ity of tablet 00:00: mouth at [place] [address] bedtime. Medical Branch traMADoL 50 2021-0 Yes [id number] 50mg Take 1 Univ ers mg tablet 9-14 tablet by ity o f 00:00: mouth [place] 00 every 6 Medical (six) Branch hours as needed (chronic joint pain, chronic muscle pain). Indication s: chronic pain cyclobenzap 2022-0 Yes [id number] 10mg Take 1 [facility] rine 10 mg 9-14 tablet by ity of tablet 00:00: mouth 3 [place] 00 (three) Medical times Branch daily as needed for Muscle Spasms. As needed for severe muscle pain. ipratropium 2021-0 Yes [id number] 2{spray Use 2 [facility] 21 mcg 9-14 } Sprays in ity of (0.03 %) 00:00: each [place] nasal spray 00 nostril Medic al every 12 Branch (twelve) hours. colesevelam 2021-0 Yes [id number] 1250mg Take 2 [facility] 625 mg 9-14 [id number] tablets by ity o f tablet 00:00: mouth in [place] 00 the Medical morning Branch and 2 tablets at noon and 2 tablets in the evening. Take before meals. SERTraline 2021-0 Yes [id number] 100mg Take 1 [facility] 100 mg 9-14 tablet by ity of tablet 00:00: mouth at [place] [address] bedtime. Medical Branch traMADoL 50 2021-0 Yes [id number] 50mg Take 1 Univ ers mg tablet 9-14 tablet by ity o f 00:00: mouth [place] 00 every 6 Medical (six) Branch hours as needed (chronic joint pain, chronic muscle pain). Indication s: chronic pain cyclobenzap 2021-0 Yes [id number] 10mg Take 1 [facility] rine 10 mg 9-14 tablet by ity of tablet 00:00: mouth 3 [place] 00 (three) Medical times Branch daily as needed for Muscle Spasms. As needed for severe muscle pain. ipratropium 2021-0 Yes [id number] 2{spray Use 2 [facility] 21 mcg 9-14 } Sprays in ity of (0.03 %) 00:00: each [place] nasal spray 00 nostril Medic al every 12 Branch (twelve) hours. colesevelam 2021-0 Yes [id number] 1250mg Take 2 [facility] 625 mg 9-14 [id number] tablets by ity o f tablet 00:00: mouth in [place] 00 the Medical morning Branch and 2 tablets at noon and 2 tablets in the evening. Take before meals. SERTraline 2021-0 Yes [id number] 100mg Take 1 [facility] 100 mg 9-14 tablet by [facility] of tablet 00:00: mouth at [place] 00 bedtime. Medical Branch traMADoL 50 2021-0 Yes [id number] 50mg Take 1 [facility] mg tablet 9-14 tablet by ity o f 00:00: mouth [place] 00 every 6 Medical (six) Branch hours as needed (chronic joint pain, chronic muscle pain). Indication s: chronic pain cyclobenzap 2021-0 Yes [id number] 10mg Take 1 [facility] rine 10 mg 9-14 tablet by ity of tablet 00:00: mouth 3 [place] [address] (three) Medical times Branch daily as needed for Muscle Spasms. As needed for severe muscle pain. ipratropium 2021-0 Yes [id number] 2{spray Use 2 [facility] 21 mcg 9-14 } Sprays in ity of (0.03 %) 00:00: each [place] nasal spray 00 nostril Medic al every 12 Branch (twelve) hours. colesevelam 2021-0 Yes [id number] 1250mg Take 2 [facility] 625 mg 9-14 [id number] tablets by ity o f tablet 00:00: mouth in [place] 00 the Medical morning Branch and 2 tablets at noon and 2 tablets in the evening. Take before meals. SERTraline 2021-0 Yes [id number] 100mg Take 1 [facility] 100 mg 9-14 tablet by ity of tablet 00:00: mouth at [place] 00 bedtime. Medical Branch traMADoL 50 2021-0 Yes [id number] 50mg Take 1 [facility] mg tablet 9-14 tablet by ity o f 00:00: mouth [place] 00 every 6 Medical (six) Branch hours as needed (chronic joint pain, chronic muscle pain). Indication s: chronic pain cyclobenzap 2021-0 Yes [id number] 10mg Take 1 [facility] rine 10 mg 9-14 tablet by ity of tablet 00:00: mouth 3 [place] [address] (three) Medical times Branch daily as needed for Muscle Spasms. As needed for severe muscle pain. ipratropium 2021-0 Yes [id number] 2{spray Use 2 [facility] 21 mcg 9-14 } Sprays in ity of (0.03 %) 00:00: each [place] nasal spray 00 nostril Medic al every 12 Branch (twelve) hours. colesevelam 2021-0 Yes [id number] 1250mg Take 2 [facility] 625 mg 9-14 [id number] tablets by ity o f tablet 00:00: mouth in [place] 00 the Medical morning Branch and 2 tablets at noon and 2 tablets in the evening. Take before meals. SERTraline 0 Yes [id number] 100mg Take 1 [facility] 100 mg 9-14 tablet by ity of tablet 00:00: mouth at [place] [address] bedtime. Medical Branch traMADoL 50 0 Yes [id number] 50mg Take 1 [facility] mg tablet 9-14 tablet by ity o f 00:00: mouth [place] 00 every 6 Medical (six) Branch hours as needed (chronic joint pain, chronic muscle pain). Indication s: chronic pain cyclobenzap 2021-0 Yes [id number] 10mg Take 1 [facility] rine 10 mg 9-14 tablet by ity of tablet 00:00: mouth 3 [place] [address] (three) Medical times [place] daily as needed for Muscle Spasms. As needed for severe muscle pain. ipratropium Yes [id number] 2{spray Use 2 [facility] 21 mcg 9-14 } Sprays in ity of (0.03 %) 00:00: each [place] nasal spray 00 nostril Medic al every 12 Branch (twelve) hours. colesevelam 0 Yes [id number] 1250mg Take 2 [facility] 625 mg 9-14 [id number] tablets by ity o f tablet 00:00: mouth in [place] 00 the Medical morning Branch and 2 tablets at noon and 2 tablets in the evening. Take before meals. SERTraline Yes [id number] 100mg Take 1 [facility] 100 mg 9-14 tablet by ity of tablet 00:00: mouth at [place] [address] bedtime. Medical Branch traMADoL 50 0 Yes [id number] 50mg Take 1 [facility] mg tablet 9-14 tablet by ity o f 00:00: mouth [place] 00 every 6 Medical (six) Branch hours as needed (chronic joint pain, chronic muscle pain). Indication s: chronic pain cyclobenzap 2021-0 Yes [id number] 10mg Take 1 [facility] rine 10 mg 9-14 tablet by ity of tablet 00:00: mouth 3 [place] 00 (three) Medical times Branch daily as needed for Muscle Spasms. As needed for severe muscle pain. ipratropium 2021-0 Yes [id number] 2{spray Use 2 [facility] 21 mcg 9-14 } Sprays in ity of (0.03 %) 00:00: each [place] nasal spray 00 nostril Medic al every 12 Branch (twelve) hours. colesevelam 2021-0 Yes [id number] 1250mg Take 2 [facility] 625 mg 9-14 [id number] tablets by ity o f tablet 00:00: mouth in [place] 00 the Medical morning Branch and 2 tablets at noon and 2 tablets in the evening. Take before meals. SERTraline 2021-0 Yes [id number] 100mg Take 1 [facility] 100 mg 9-14 tablet by ity of tablet 00:00: mouth at [place] [address] bedtime. Medical Branch traMADoL 50 2021-0 Yes [id number] 50mg Take 1 [facility] mg tablet 9-14 tablet by ity o f 00:00: mouth [place] [address] every 6 Medical (six) Branch hours as needed (chronic joint pain, chronic muscle pain). Indication s: chronic pain cyclobenzap 2021-0 Yes [id number] 10mg Take 1 [facility] rine 10 mg 9-14 tablet by ity of tablet 00:00: mouth 3 [place] [address] (three) Medical times Branch daily as needed for Muscle Spasms. As needed for severe muscle pain. ipratropium 2021-0 Yes [id number] 2{spray Use 2 [facility] 21 mcg 9-14 } Sprays in ity of (0.03 %) 00:00: each [place] nasal spray 00 nostril Medic al every 12 Branch (twelve) hours. colesevelam 2021-0 Yes [id number] 1250mg Take 2 [facility] 625 mg 9-14 [id number] tablets by ity o f tablet 00:00: mouth in [place] 00 the Medical morning Branch and 2 tablets at noon and 2 tablets in the evening. Take before meals. SERTraline 2021-0 Yes [id number] 100mg Take 1 [facility] 100 mg 9-14 tablet by ity of tablet 00:00: mouth at [place] [address] bedtime. Medical Branch traMADoL 50 2021-0 Yes [id number] 50mg Take 1 [facility] mg tablet 9-14 tablet by ity o f 00:00: mouth [place] 00 every 6 Medical (six) Branch hours as needed (chronic joint pain, chronic muscle pain). Indication s: chronic pain cyclobenzap 2021-0 Yes [id number] 10mg Take 1 [facility] rine 10 mg 9-14 tablet by ity of tablet 00:00: mouth 3 [place] (three) Medical times Branch daily as needed for Muscle Spasms. As needed for severe muscle pain. ipratropium 2021-0 Yes [id number] 2{spray Use 2 [facility] 21 mcg 9-14 } Sprays in ity of (0.03 %) 00:00: each [place] nasal spray 00 nostril Medic al every 12 Branch (twelve) hours. colesevelam 2021-0 Yes [id number] 1250mg Take 2 [facility] 625 mg 9-14 [id number] tablets by ity o f tablet 00:00: mouth in [place] 00 the Medical morning Branch and 2 tablets at noon and 2 tablets in the evening. Take before meals. SERTraline 2021-0 Yes [id number] 100mg Take 1 [facility] 100 mg 9-14 tablet by ity of tablet 00:00: mouth at [place] [address] bedtime. Medical Branch traMADoL 50 2021-0 Yes [id number] 50mg Take 1 [facility] mg tablet 9-14 tablet by ity o f 00:00: mouth [place] 00 every 6 Medical (six) Branch hours as needed (chronic joint pain, chronic muscle pain). Indication s: chronic pain cyclobenzap 2021-0 Yes [id number] 10mg Take 1 [facility] rine 10 mg 9-14 tablet by ity of tablet 00:00: mouth 3 [place] (three) Medical times Branch daily as needed for Muscle Spasms. As needed for severe muscle pain. ipratropium 2021-0 Yes [id number] 2{spray Use 2 [facility] 21 mcg 9-14 } Sprays in ity of (0.03 %) 00:00: each [place] nasal spray 00 nostril Medic al every 12 Branch (twelve) hours. colesevelam 2021-0 Yes [id number] 1250mg Take 2 [facility] 625 mg 9-14 [id number] tablets by ity o f tablet 00:00: mouth in [place] 00 the Medical morning Branch and 2 tablets at noon and 2 tablets in the evening. Take before meals. SERTraline 2021-0 Yes [id number] 100mg Take 1 [facility] 100 mg 9-14 tablet by ity of tablet 00:00: mouth at [place] [address] bedtime. Medical Branch traMADoL 50 2021-0 Yes [id number] 50mg Take 1 [facility] mg tablet 9-14 tablet by ity o f 00:00: mouth [place] 00 every 6 Medical (six) Branch hours as needed (chronic joint pain, chronic muscle pain). Indication s: chronic pain cyclobenzap 2-0 Yes [id number] 10mg Take 1 [facility] rine 10 mg 9-14 tablet by ity of tablet 00:00: mouth 3 [place] (three) Medical times Branch daily as needed for Muscle Spasms. As needed for severe muscle pain. ipratropium 2021-0 Yes [id number] 2{spray Use 2 [facility] 21 mcg 9-14 } Sprays in ity of (0.03 %) 00:00: each [place] nasal spray 00 nostril Medic al every 12 Branch (twelve) hours. colesevelam 2021-0 Yes [id number] 1250mg Take 2 [facility] 625 mg 9-14 [id number] tablets by ity o f tablet 00:00: mouth in [place] 00 the Medical morning Branch and 2 tablets at noon and 2 tablets in the evening. Take before meals. SERTraline 2021-0 Yes [id number] 100mg Take 1 [facility] 100 mg 9-14 tablet by ity of tablet 00:00: mouth at [place] 00 bedtime. Medical Branch traMADoL 50 2021-0 Yes [id number] 50mg Take 1 [facility] mg tablet 9-14 tablet by ity o f 00:00: mouth [place] 00 every 6 Medical (six) Branch hours as needed (chronic joint pain, chronic muscle pain). Indication s: chronic pain cyclobenzap 2021-0 Yes [id number] 10mg Take 1 [facility] 10 mg 9-14 tablet by ity of tablet 00:00: mouth 3 [place] [address] (three) Medical times Branch daily as needed for Muscle Spasms. As needed for severe muscle pain. ipratropium 2021-0 Yes [id number] 2{spray Use 2 [facility] 21 mcg 9-14 } Sprays in ity of (0.03 %) 00:00: each [place] nasal spray 00 nostril Medic al every 12 Branch (twelve) hours. colesevelam 2021-0 Yes [id number] 1250mg Take 2 [facility] 625 mg 9-14 [id number] tablets by ity o f tablet 00:00: mouth in [place] 00 the Medical morning Branch and 2 tablets at noon and 2 tablets in the evening. Take before meals. SERTraline 2022-0 Yes [id number] 100mg Take 1 [facility] 100 mg 9-14 tablet by ity of tablet 00:00: mouth at [place] 00 bedtime. Medical Branch traMADoL 50 2021-0 Yes [id number] 50mg Take 1 [facility] mg tablet 9-14 tablet by ity o f 00:00: mouth [place] 00 every 6 Medical (six) Branch hours as needed (chronic joint pain, chronic muscle pain). Indication s: chronic pain cyclobenzap 2021-0 Yes [id number] 10mg Take 1 [facility] rine 10 mg 9-14 tablet by ity of tablet 00:00: mouth 3 [place] 00 (three) Medical times Branch daily as needed for Muscle Spasms. As needed for severe muscle pain. ipratropium 2021-0 Yes [id number] 2{spray Use 2 [facility] 21 mcg 9-14 } Sprays in ity of (0.03 %) 00:00: each [place] nasal spray 00 nostril Medic al every 12 Branch (twelve) hours. colesevelam 2021-0 Yes [id number] 1250mg Take 2 [facility] 625 mg 9-14 [id number] tablets by ity o f tablet 00:00: mouth in [place] 00 the Medical morning Branch and 2 tablets at noon and 2 tablets in the evening. Take before meals. SERTraline 0 Yes [id number] 100mg Take 1 [facility] 100 mg 9-14 tablet by ity of tablet 00:00: mouth at [place] 00 bedtime. Medical Branch traMADoL 50 2021-0 Yes [id number] 50mg Take 1 [facility] mg tablet 9-14 tablet by ity o f 00:00: mouth [place] 00 every 6 Medical (six) Branch hours as needed (chronic joint pain, chronic muscle pain). Indication s: chronic pain cyclobenzap 2021-0 Yes [id number] 10mg Take 1 [facility] rine 10 mg 9-14 tablet by ity of tablet 00:00: mouth 3 [place] 00 (three) Medical times Branch daily as needed for Muscle Spasms. As needed for severe muscle pain. ipratropium 2021-0 Yes [id number] 2{spray Use 2 [facility] 21 mcg 9-14 } Sprays in ity of (0.03 %) 00:00: each [place] nasal spray 00 nostril Medic al every 12 Branch (twelve) hours. colesevelam 2021-0 Yes [id number] 1250mg Take 2 [facility] 625 mg 9-14 [id number] tablets by ity o f tablet 00:00: mouth in [place] 00 the Medical morning Branch and 2 tablets at noon and 2 tablets in the evening. Take before meals. SERTraline 2021-0 Yes [id number] 100mg Take 1 [facility] 100 mg 9-14 tablet by ity of tablet 00:00: mouth at [place] [address] bedtime. Medical Branch traMADoL 50 2021-0 Yes [id number] 50mg Take 1 [facility] mg tablet 9-14 tablet by ity o f 00:00: mouth [place] 00 every 6 Medical (six) Branch hours as needed (chronic joint pain, chronic muscle pain). Indication s: chronic pain cyclobenzap 2021-0 Yes [id number] 10mg Take 1 [facility] r[facility] 10 mg 9-14 tablet by ity of tablet 00:00: mouth 3 [place] [address] (three) Medical times [place] daily as needed for Muscle Spasms. As needed for severe muscle pain. ipratropium 2021-0 Yes [id number] 2{spray Use 2 [facility] 21 mcg 9-14 } Sprays in ity of (0.03 %) 00:00: each [place] nasal spray 00 nostril Medic al every 12 Branch (twelve) hours. colesevelam 0 Yes [id number] 1250mg Take 2 [facility] 625 mg 9-14 [id number] tablets by ity o f tablet 00:00: mouth in [place] 00 the Medical morning Branch and 2 tablets at noon and 2 tablets in the evening. Take before meals. SERTraline 2021-0 Yes [id number] 100mg Take 1 [facility] 100 mg 9-14 tablet by ity of tablet 00:00: mouth at [place] [address] bedtime. Medical Branch traMADoL 50 2021-0 Yes [id number] 50mg Take 1 [facility] mg tablet 9-14 tablet by ity o f 00:00: mouth [place] 00 every 6 Medical (six) Branch hours as needed (chronic joint pain, chronic muscle pain). Indication s: chronic pain cyclobenzap 2021-0 Yes [id number] 10mg Take 1 [facility] rine 10 mg 9-14 tablet by ity of tablet 00:00: mouth 3 [place] [address] (three) Medical times Branch daily as needed for Muscle Spasms. As needed for severe muscle pain. ipratropium 2021-0 Yes [id number] 2{spray Use 2 [facility] 21 mcg 9-14 } Sprays in ity of (0.03 %) 00:00: each [place] nasal spray 00 nostril Medic al every 12 Branch (twelve) hours. colesevelam Yes [id number] 1250mg Take 2 [facility] 625 mg 9-14 [id number] tablets by ity o f tablet 00:00: mouth in [place] 00 the Medical morning Branch and 2 tablets at noon and 2 tablets in the evening. Take before meals. SERTraline Yes [id number] 100mg Take 1 [facility] 100 mg 9-14 tablet by ity of tablet 00:00: mouth at [place] 00 bedtime. Medical Branch traMADoL 50 0 Yes [id number] 50mg Take 1 [facility] mg tablet 9-14 tablet by ity o f 00:00: mouth [place] 00 every 6 Medical (six) Branch hours as needed (chronic joint pain, chronic muscle pain). Indication s: chronic pain cyclobenzap 0 Yes [id number] 10mg Take 1 [facility] rine 10 mg 9-14 tablet by ity of tablet 00:00: mouth 3 [place] 00 (three) Medical times Branch daily as needed for Muscle Spasms. As needed for severe muscle pain. ipratropium Yes [id number] 2{spray Use 2 [facility] 21 mcg 9-14 } Sprays in ity of (0.03 %) 00:00: each [place] nasal spray 00 nostril Medic al every 12 Branch (twelve) hours. colesevelam Yes [id number] 1250mg Take 2 [facility] 625 mg 9-14 [id number] tablets by ity o f tablet 00:00: mouth in [place] 00 the Medical morning Branch and 2 tablets at noon and 2 tablets in the evening. Take before meals. SERTraline 2021-0 Yes [id number] 100mg Take 1 [facility] 100 mg 9-14 tablet by ity of tablet 00:00: mouth at [place] 00 bedtime. Medical Branch traMADoL 50 2021-0 Yes [id number] 50mg Take 1 [facility] mg tablet 9-14 tablet by ity o f 00:00: mouth [place] 00 every 6 Medical (six) Branch hours as needed (chronic joint pain, chronic muscle pain). Indication s: chronic pain cyclobenzap 2021-0 Yes [id number] 10mg Take 1 [facility] rine 10 mg 9-14 tablet by ity of tablet 00:00: mouth 3 [place] (three) Medical times Branch daily as needed for Muscle Spasms. As needed for severe muscle pain. ipratropium Yes [id number] 2{spray Use 2 [facility] 21 mcg 9-14 } Sprays in ity of (0.03 %) 00:00: each [place] nasal spray 00 nostril Medic al every 12 Branch (twelve) hours. colesevelam Yes [id number] 1250mg Take 2 [facility] 625 mg 9-14 [id number] tablets by ity o f tablet 00:00: mouth in [place] 00 the Medical morning Branch and 2 tablets at noon and 2 tablets in the evening. Take before meals. SERTraline Yes [id number] 100mg Take 1 [facility] 100 mg 9-14 tablet by ity of tablet 00:00: mouth at [place] [address] bedtime. Medical Branch traMADoL 50 Yes [id number] 50mg Take 1 [facility] mg tablet 9-14 tablet by ity o f 00:00: mouth [place] 00 every 6 Medical (six) Branch hours as needed (chronic joint pain, chronic muscle pain). Indication s: chronic pain cyclobenzap Yes [id number] 10mg Take 1 [facility] rine 10 mg 9-14 tablet by ity of tablet 00:00: mouth 3 [place] 00 (three) Medical times Branch daily as needed for Muscle Spasms. As needed for severe muscle pain. ipratropium Yes [id number] 2{spray Use 2 [facility] 21 mcg 9-14 } Sprays in ity of (0.03 %) 00:00: each [place] nasal spray 00 nostril Medic al every 12 Branch (twelve) hours. colesevelam 2021-0 Yes [id number] 1250mg Take 2 [facility] 625 mg 9-14 [id number] tablets by ity o f tablet 00:00: mouth in [place] 00 the Medical morning Branch and 2 tablets at noon and 2 tablets in the evening. Take before meals. SERTraline 0 Yes [id number] 100mg Take 1 [facility] 100 mg 9-14 tablet by ity of tablet 00:00: mouth at [place] [address] bedtime. Medical Branch traMADoL 50 2022-0 Yes [id number] 50mg Take 1 [facility] mg tablet 9-14 tablet by ity o f 00:00: mouth [place] 00 every 6 Medical (six) Branch hours as needed (chronic joint pain, chronic muscle pain). Indication s: chronic pain cyclobenzap Yes [id number] 10mg Take 1 [facility] rine 10 mg 9-14 tablet by ity of tablet 00:00: mouth 3 [place] 00 (three) Medical times Branch daily as needed for Muscle Spasms. As needed for severe muscle pain. ipratropium Yes [id number] 2{spray Use 2 [facility] 21 mcg 9-14 } Sprays in ity of (0.03 %) 00:00: each [place] nasal spray 00 nostril Medic al every 12 Branch (twelve) hours. colesevelam Yes [id number] 1250mg Take 2 [facility] 625 mg 9-14 [id number] tablets by ity o f tablet 00:00: mouth in [place] 00 the Medical morning Branch and 2 tablets at noon and 2 tablets in the evening. Take before meals. SERTraline Yes [id number] 100mg Take 1 [facility] 100 mg 9-14 tablet by ity of tablet 00:00: mouth at [place] 00 bedtime. Medical Branch traMADoL 50 Yes [id number] 50mg Take 1 [facility] mg tablet 9-14 tablet by ity o f 00:00: mouth [place] 00 every 6 Medical (six) Branch hours as needed (chronic joint pain, chronic muscle pain). Indication s: chronic pain ergocalcife Yes Take by [facility] vers rol, 8-10 mouth. ity of vitamin D2, 13:44: [place] (VITAMIN D 12 Medical ORAL) Branch vitamin C Yes 100mg Take 100 [facility] vers 100 mg 8-10 mg by ity of tablet 13:44: mouth [place] 12 daily. Medical Branch Lactobacill Yes 1{capsu Take 1 [facility] nivers us 8-10 le} capsule by it[facility] of acidophilus 13:44: mouth. [place] (PROBIOTIC 12 Medical ACIDOPHILUS Branch ORAL) ergocalcife Yes Take by [facility] vers rol, 8-10 mouth. ity of vitamin D2, 13:44: [place] (VITAMIN D 12 Medical ORAL) Branch vitamin C 2022-0 Yes 100mg Take 100 [facility] vers 100 mg 8-10 mg by ity of tablet 13:44: mouth [place] 12 daily. Medical Branch Lactobacill Yes 1{capsu Take 1 [facility] nivers us 8-10 le} capsule by ity of acidophilus 13:44: mouth. [place] (PROBIOTIC 12 Medical ACIDOPHILUS Branch ORAL) ergocalcife 0 Yes Take by [facility] vers rol, 8-10 mouth. ity of vitamin D2, 13:44: [place] (VITAMIN D 12 Medical ORAL) Branch vitamin C Yes 100mg Take 100 [facility] vers 100 mg 8-10 mg by ity of tablet 13:44: mouth [place] 12 daily. Medical Branch Lactobacill Yes 1{capsu Take 1 [facility] nivers us 8-10 le} capsule by ity of acidophilus 13:44: mouth. [place] (PROBIOTIC 12 Medical ACIDOPHILUS Branch ORAL) ergocalcife Yes Take by [facility] vers rol, 8-10 mouth. ity of vitamin D2, 13:44: [place] (VITAMIN D 12 Medical ORAL) Branch vitamin C Yes 100mg Take 100 [facility] vers 100 mg 8-10 mg by ity of tablet 13:44: mouth [place] 12 daily. Medical Branch Lactobacill Yes 1{capsu Take 1 [facility] nivers us 8-10 le} capsule by ity of acidophilus 13:44: mouth. [place] (PROBIOTIC 12 Medical ACIDOPHILUS Branch ORAL) ergocalcife Yes Take by [facility] vers rol, 8-10 mouth. ity of vitamin D2, 13:44: [place] (VITAMIN D 12 Medical ORAL) Branch vitamin C Yes 100mg Take 100 [facility] vers 100 mg 8-10 mg by ity of tablet 13:44: mouth [place] 12 daily. Medical Branch Lactobacill Yes 1{capsu Take 1 [facility] nivers us 8-10 le} capsule by ity of acidophilus 13:44: mouth. [place] (PROBIOTIC 12 Medical ACIDOPHILUS Branch ORAL) ergocalcife 0 Yes Take by [facility] vers rol, 8-10 mouth. ity of vitamin D2, 13:44: [place] (VITAMIN D 12 Medical ORAL) Branch vitamin C Yes 100mg Take 100 [facility] vers 100 mg 8-10 mg by ity of tablet 13:44: mouth [place] 12 daily. Medical Branch Lactobacill Yes 1{capsu Take 1 [facility] nivers us 8-10 le} capsule by ity of acidophilus 13:44: mouth. [place] (PROBIOTIC 12 Medical ACIDOPHILUS Branch ORAL) ergocalcife 0 Yes Take by [facility] vers rol, 8-10 mouth. ity of vitamin D2, 13:44: [place] (VITAMIN D 12 Medical ORAL) Branch vitamin C Yes 100mg Take 100 [facility] vers 100 mg 8-10 mg by ity of tablet 13:44: mouth [place] 12 daily. Medical Branch Lactobacill Yes 1{capsu Take 1 [facility] nivers us 8-10 le} capsule by ity of acidophilus 13:44: mouth. [place] (PROBIOTIC 12 Medical ACIDOPHILUS Branch ORAL) ergocalcife Yes Take by [facility] vers rol, 8-10 mouth. ity of vitamin D2, 13:44: [place] (VITAMIN D 12 Medical ORAL) Branch vitamin C Yes 100mg Take 100 [facility] 100 mg 8-10 mg by ity of tablet 13:44: mouth [place] 12 daily. Medical Branch Lactobacill Yes 1{capsu Take 1 [facility] nivers us 8-10 le} capsule by ity of acidophilus 13:44: mouth. [place] (PROBIOTIC 12 Medical ACIDOPHILUS Branch ORAL) ergocalcife Yes Take by [facility] vers rol, 8-10 mouth. ity of vitamin D2, 13:44: [place] (VITAMIN D 12 Medical ORAL) Branch vitamin C Yes 100mg Take 100 [facility] 100 mg 8-10 mg by ity of tablet 13:44: mouth [place] 12 daily. Medical Branch Lactobacill Yes 1{capsu Take 1 [facility] nivers us 8-10 le} capsule by ity of acidophilus 13:44: mouth. [place] (PROBIOTIC 12 Medical ACIDOPHILUS Branch ORAL) ergocalcife 0 Yes Take by [facility] vers rol, 8-10 mouth. ity of vitamin D2, 13:44: [place] (VITAMIN D 12 Medical ORAL) Branch vitamin C Yes 100mg Take 100 [facility] 100 mg 8-10 mg by ity of tablet 13:44: mouth [place] 12 daily. Medical Branch Lactobacill 2022-0 Yes 1{capsu Take 1 [facility] nivers us 8-10 le} capsule by ity of acidophilus 13:44: mouth. [place] (PROBIOTIC 12 Medical ACIDOPHILUS Branch ORAL) ergocalcife Yes Take by [facility] vers rol, 8-10 mouth. ity of vitamin D2, 13:44: [place] (VITAMIN D 12 Medical ORAL) Branch vitamin C Yes 100mg Take 100 [facility] 100 mg 8-10 mg by ity of tablet 13:44: mouth [place] 12 daily. Medical Branch Lactobacill Yes 1{capsu Take 1 [facility] nivers us 8-10 le} capsule by ity of acidophilus 13:44: mouth. [place] (PROBIOTIC 12 Medical ACIDOPHILUS Branch ORAL) ergocalcife Yes Take by [facility] vers rol, 8-10 mouth. ity of vitamin D2, 13:44: [place] (VITAMIN D 12 Medical ORAL) Branch vitamin C Yes 100mg Take 100 [facility] 100 mg 8-10 mg by ity of tablet 13:44: mouth [place] 12 daily. Medical Branch Lactobacill Yes 1{capsu Take 1 [facility] nivers us 8-10 le} capsule by ity of acidophilus 13:44: mouth. [place] (PROBIOTIC 12 Medical ACIDOPHILUS Branch ORAL) ergocalcife Yes Take by [facility] vers rol, 8-10 mouth. ity of vitamin D2, 13:44: [place] (VITAMIN D 12 Medical ORAL) Branch vitamin C Yes 100mg Take 100 [facility] 100 mg 8-10 mg by ity of tablet 13:44: mouth [place] 12 daily. Medical Branch Lactobacill Yes 1{capsu Take 1 [facility] nivers us 8-10 le} capsule by ity of acidophilus 13:44: mouth. [place] (PROBIOTIC 12 Medical ACIDOPHILUS Branch ORAL) ergocalcife Yes Take by [facility] vers rol, 8-10 mouth. ity of vitamin D2, 13:44: [place] (VITAMIN D 12 Medical ORAL) Branch vitamin C Yes 100mg Take 100 [facility] 100 mg 8-10 mg by ity of tablet 13:44: mouth [place] 12 daily. Medical Branch Lactobacill Yes 1{capsu Take 1 [facility] nivers us 8-10 le} capsule by ity of acidophilus 13:44: mouth. [place] (PROBIOTIC 12 Medical ACIDOPHILUS Branch ORAL) ergocalcife Yes Take by [facility] vers rol, 8-10 mouth. ity of vitamin D2, 13:44: [place] (VITAMIN D 12 Medical ORAL) Branch vitamin C Yes 100mg Take 100 [facility] 100 mg 8-10 mg by ity of tablet 13:44: mouth [place] 12 daily. Medical Branch Lactobacill Yes 1{capsu Take 1 [facility] nivers us 8-10 le} capsule by ity of acidophilus 13:44: mouth. [place] (PROBIOTIC 12 Medical ACIDOPHILUS Branch ORAL) ergocalcife Yes Take by [facility] vers rol, 8-10 mouth. ity of vitamin D2, 13:44: [place] (VITAMIN D 12 Medical ORAL) Branch vitamin C Yes 100mg Take 100 [facility] 100 mg 8-10 mg by ity of tablet 13:44: mouth [place] 12 daily. Medical Branch Lactobacill Yes 1{capsu Take 1 U nivers us 8-10 le} capsule by ity of acidophilus 13:44: mouth. [place] (PROBIOTIC 12 Medical ACIDOPHILUS Branch ORAL) ergocalcife Yes Take by [facility] vers rol, 8-10 mouth. ity of vitamin D2, 13:44: [place] (VITAMIN D 12 Medical ORAL) Branch vitamin C Yes 100mg Take 100 [facility] 100 mg 8-10 mg by ity of tablet 13:44: mouth [place] 12 daily. Medical Branch Lactobacill Yes 1{capsu Take 1 [facility] nivers us 8-10 le} capsule by ity of acidophilus 13:44: mouth. [place] (PROBIOTIC 12 Medical ACIDOPHILUS Branch ORAL) ergocalcife Yes Take by [facility] rol, 8-10 mouth. ity of vitamin D2, 13:44: [place] (VITAMIN D 12 Medical ORAL) Branch vitamin C Yes 100mg Take 100 [facility] vers 100 mg 8-10 mg by ity of tablet 13:44: mouth [place] 12 daily. Medical Branch Lactobacill Yes 1{capsu Take 1 U nivers us 8-10 le} capsule by ity of acidophilus 13:44: [place]. [place] (PROBIOTIC 12 Medical ACIDOPHILUS Branch ORAL) ergocalcife 0 Yes Take by [facility] rol, 8-10 mouth. ity of vitamin D2, 13:44: [place] (VITAMIN D 12 Medical ORAL) Branch vitamin C Yes 100mg Take 100 [facility] 100 mg 8-10 mg by ity of tablet 13:44: mouth [place] 12 daily. Medical Branch Lactobacill Yes 1{capsu Take 1 [facility] nivers us 8-10 le} capsule by [facility] of acidophilus 13:44: [place]. [place] (PROBIOTIC 12 Medical ACIDOPHILUS Branch ORAL) ergocalcife 0 Yes Take by [facility] rol, 8-10 mouth. ity of vitamin D2, 13:44: [place] (VITAMIN D 12 Medical ORAL) Branch vitamin C Yes 100mg Take 100 [facility] vers 100 mg 8-10 mg by ity of tablet 13:44: mouth [place] 12 daily. Medical Branch Lactobacill Yes 1{capsu Take 1 [facility] nivers us 8-10 le} capsule by [facility] of acidophilus 13:44: [place]. [place] (PROBIOTIC 12 Medical ACIDOPHILUS Branch ORAL) ergocalcife 0 Yes Take by [facility] vers rol, 8-10 mouth. ity of vitamin D2, 13:44: [place] (VITAMIN D 12 Medical ORAL) Branch vitamin C Yes 100mg Take 100 [facility] vers 100 mg 8-10 mg by ity of tablet 13:44: mouth [place] 12 daily. Medical Branch Lactobacill Yes 1{capsu Take 1 [facility] nivers us 8-10 le} capsule by [facility]y of acidophilus 13:44: mouth. [place] (PROBIOTIC 12 Medical ACIDOPHILUS Branch ORAL) ergocalcife 0 Yes Take by [facility] vers rol, 8-10 mouth. ity of vitamin D2, 13:44: [place] (VITAMIN D 12 Medical ORAL) Branch vitamin C 0 Yes 100mg Take 100 [facility] vers 100 mg 8-10 mg by ity of tablet 13:44: mouth [place] 12 daily. Medical Branch Lactobacill 0 Yes 1{capsu Take 1 [facility] nivers us 8-10 le} capsule by [facility] of acidophilus 13:44: mouth. [place] (PROBIOTIC 12 Medical ACIDOPHILUS Branch ORAL) ergocalcife 2022-0 Yes Take by [facility] rol, 8-10 mouth. ity of vitamin D2, 13:44: [place] (VITAMIN D 12 Medical ORAL) Branch vitamin C Yes 100mg Take 100 [facility] vers 100 mg 8-10 mg by ity of tablet 13:44: mouth [place] 12 daily. Medical Branch Lactobacill Yes 1{capsu Take 1 [facility] nivers us 8-10 le} capsule by ity of acidophilus 13:44: mouth. [place] (PROBIOTIC 12 Medical ACIDOPHILUS Branch ORAL) ergocalcife Yes Take by [facility] vers rol, 8-10 mouth. ity of vitamin D2, 13:44: [place] (VITAMIN D 12 Medical ORAL) Branch vitamin C Yes 100mg Take 100 [facility] vers 100 mg 8-10 mg by ity of tablet 13:44: mouth [place] 12 daily. Medical Branch Lactobacill Yes 1{capsu Take 1 [facility] nivers us 8-10 le} capsule by [facility]y of acidophilus 13:44: mouth. [place] (PROBIOTIC 12 Medical ACIDOPHILUS Branch ORAL) ergocalcife Yes Take by [facility] vers rol, 8-10 mouth. ity of vitamin D2, 13:44: [place] (VITAMIN D 12 Medical ORAL) Branch vitamin C Yes 100mg Take 100 [facility] vers 100 mg 8-10 mg by ity of tablet 13:44: mouth [place] 12 daily. Medical Branch Lactobacill Yes 1{capsu Take 1 [facility] nivers us 8-10 le} capsule by ity of acidophilus 13:44: mouth. [place] (PROBIOTIC 12 Medical ACIDOPHILUS Branch ORAL) ergocalcife Yes Take by [facility] vers rol, 8-10 mouth. ity of vitamin D2, 13:44: [place] (VITAMIN D 12 Medical ORAL) Branch vitamin C Yes 100mg Take 100 [facility] vers 100 mg 8-10 mg by ity of tablet 13:44: mouth [place] 12 daily. Medical Branch Lactobacill Yes 1{capsu Take 1 [facility] nivers us 8-10 le} capsule by [facility]y of acidophilus 13:44: mouth. [place] (PROBIOTIC 12 Medical ACIDOPHILUS Branch ORAL) ergocalcife 0 Yes Take by [facility] vers rol, 8-10 mouth. ity of vitamin D2, 13:44: [place] (VITAMIN D 12 Medical ORAL) Branch vitamin C Yes 100mg Take 100 [facility] vers 100 mg 8-10 mg by ity of tablet 13:44: mouth [place] 12 daily. Medical Branch Lactobacill Yes 1{capsu Take 1 [facility] nivers us 8-10 le} capsule by ity of acidophilus 13:44: mouth. [place] (PROBIOTIC 12 Medical ACIDOPHILUS Branch ORAL) ergocalcife Yes Take by [facility] vers rol, 8-10 mouth. ity of vitamin D2, 13:44: [place] (VITAMIN D 12 Medical ORAL) Branch vitamin C Yes 100mg Take 100 [facility] vers 100 mg 8-10 mg by ity of tablet 13:44: mouth [place] 12 daily. Medical Branch Lactobacill Yes 1{capsu Take 1 [facility] nivers us 8-10 le} capsule by it[facility] of acidophilus 13:44: mouth. [place] (PROBIOTIC 12 Medical ACIDOPHILUS Branch ORAL) baclofen 10 Yes [id number] 5mg Take 0.5 [facility] mg tablet 7-04 tablets by ity of 00:00: mouth 2 [place] [address] (two) Medical times [place] daily. SERTraline Yes [id number] 100mg Take 1 [facility] 100 mg 7-04 tablet by ity of tablet 00:00: mouth at [place] [address] bedtime. Medical Branch baclofen 10 Yes [id number] 5mg Take 0.5 [facility] mg tablet 7-04 tablets by ity of 00:00: mouth 2 [place] [address] (two) Medical times [place] daily. SERTraline 0 Yes [id number] 100mg Take 1 [facility] 100 mg 7-04 tablet by ity of tablet 00:00: mouth at [place] [address] bedtime. Medical Branch baclofen 10 Yes [id number] 5mg Take 0.5 [facility] mg tablet 7-04 tablets by ity of 00:00: mouth 2 [place] [address] (two) Medical times [place] daily. SERTraline 0 Yes [id number] 100mg Take 1 [facility] 100 mg 7-04 tablet by ity of tablet 00:00: mouth at [place] [address] bedtime. Medical Branch baclofen 10 Yes [id number] 5mg Take 0.5 [facility] mg tablet 7-04 tablets by ity of 00:00: mouth 2 [place] 00 (two) Medical times Branch daily. SERTraline Yes [id number] 100mg Take 1 [facility] 100 mg 7-04 tablet by ity of tablet 00:00: mouth at [place] 00 bedtime. Medical Branch baclofen 10 Yes [id number] 5mg Take 0.5 [facility] mg tablet 7-04 tablets by ity of 00:00: mouth 2 [place] 00 (two) Medical times Branch daily. SERTraline Yes [id number] 100mg Take 1 [facility] 100 mg 7-04 tablet by ity of tablet 00:00: mouth at [place] 00 bedtime. Medical Branch baclofen 10 Yes [id number] 5mg Take 0.5 [facility] mg tablet 7-04 tablets by ity of 00:00: mouth 2 [place] 00 (two) Medical times Branch daily. SERTraline Yes [id number] 100mg Take 1 [facility] 100 mg 7-04 tablet by ity of tablet 00:00: mouth at [place] 00 bedtime. Medical Branch baclofen 10 2021- No [id number] 5mg Take 0.5 [facility] mg tablet 7-08 21-14 tablets by ity of 00:00: 00:00 mouth 2 [place] 00 :00 (two) Medical times Branch daily. SERTraline 2021- No [id number] 100mg Take 1 [facility] 100 mg 7-08 21-14 tablet by ity of tablet 00:00: 00:00 mouth at [place] 00 :00 bedtime. Medical Branch baclofen 10 2021- No [id number] 5mg Take 0.5 [facility] mg tablet 7-08 21-14 tablets by ity of 00:00: 00:00 mouth 2 [place] 00 :00 (two) Medical times Branch daily. SERTraline 2021- No [id number] 100mg Take 1 [facility] 100 mg 7-04 -14 tablet by ity of tablet 00:00: 00:00 mouth at [place] 00 :00 bedtime. Medical Branch proMETHazin Yes [id number] 25mg Take 1 [facility] e 25 mg 5-23 tablet by ity of tablet 00:00: mouth [place] 00 every 6 Medical (six) Branch hours. For vertigo, nausea, dizziness. proMETHazin 2-0 Yes [id number] 25mg Take 1 [facility] e 25 mg 5-23 tablet by ity of tablet 00:00: mouth [place] 00 every 6 Medical (six) Branch hours. For vertigo, nausea, dizziness. proMETHazin 2021-0 Yes [id number] 25mg Take 1 [facility] e 25 mg 5-23 tablet by ity of tablet 00:00: mouth [place] 00 every 6 Medical (six) Branch hours. For vertigo, nausea, dizziness. proMETHazin 2021-0 Yes [id number] 25mg Take 1 [facility] e 25 mg 5-23 tablet by ity of tablet 00:00: mouth [place] 00 every 6 Medical (six) Branch hours. For vertigo, nausea, dizziness. proMETHazin 2021-0 Yes [id number] 25mg Take 1 [facility] e 25 mg 5-23 tablet by ity of tablet 00:00: mouth [place] 00 every 6 Medical (six) Branch hours. For vertigo, nausea, dizziness. proMETHazin 2021-0 Yes [id number] 25mg Take 1 [facility] e 25 mg 5-23 tablet by ity of tablet 00:00: mouth [place] 00 every 6 Medical (six) Branch hours. For vertigo, nausea, dizziness. proMETHazin 2021-0 Yes [id number] 25mg Take 1 [facility] e 25 mg 5-23 tablet by ity of tablet 00:00: mouth [place] 00 every 6 Medical (six) Branch hours. For vertigo, nausea, dizziness. proMETHazin 2021-0 Yes [id number] 25mg Take 1 [facility] e 25 mg 5-23 tablet by ity of tablet 00:00: mouth [place] 00 every 6 Medical (six) Branch hours. For vertigo, nausea, dizziness. proMETHazin 2021-0 Yes [id number] 25mg Take 1 [facility] e 25 mg 5-23 tablet by ity of tablet 00:00: mouth [place] 00 every 6 Medical (six) Branch hours. For vertigo, nausea, dizziness. proMETHazin 2-0 Yes [id number] 25mg Take 1 [facility] e 25 mg 5-23 tablet by ity of tablet 00:00: mouth [place] 00 every 6 Medical (six) Branch hours. For vertigo, nausea, dizziness. proMETHazin 2-0 Yes [id number] 25mg Take 1 [facility] e 25 mg 5-23 tablet by ity of tablet 00:00: mouth [place] 00 every 6 Medical (six) Branch hours. For vertigo, nausea, dizziness. proMETHazin No [id number] 25mg Take 1 [facility] e 25 mg 5-23 10-03 tablet by ity of tablet 00:00: 00:00 mouth [place] 00 :00 every 6 Medical (six) Branch hours. For vertigo, nausea, dizziness. proMETHazin No [id number] 25mg Take 1 [facility] e 25 mg 5-23 10-03 tablet by ity of tablet 00:00: 00:00 mouth [place] 00 :00 every 6 Medical (six) Branch hours. For vertigo, nausea, dizziness. proMETHazin No [id number] 25mg Take 1 [facility] e 25 mg 5-23 10-03 tablet by ity of tablet 00:00: 00:00 mouth [place] 00 :00 every 6 Medical (six) Branch hours. For vertigo, nausea, dizziness. proMETHazin No [id number] 25mg Take 1 [facility] e 25 mg 5-23 10-03 tablet by ity of tablet 00:00: 00:00 mouth [place] 00 :00 every 6 Medical (six) Branch hours. For vertigo, nausea, dizziness. proMETHazin No [id number] 25mg Take 1 [facility] e 25 mg 5-23 10-03 tablet by ity of tablet 00:00: 00:00 mouth [place] 00 :00 every 6 Medical (six) Branch hours. For vertigo, nausea, dizziness. proMETHazin No [id number] 25mg Take 1 [facility] e 25 mg 5-23 10-03 tablet by ity of tablet 00:00: 00:00 mouth [place] 00 :00 every 6 Medical (six) Branch hours. For vertigo, nausea, dizziness. proMETHazin No [id number] 25mg Take 1 [facility] e 25 mg 5-23 10-03 tablet by ity of tablet 00:00: 00:00 mouth [place] 00 :00 every 6 Medical (six) Branch hours. For vertigo, nausea, dizziness. proMETHazin 2021- No [id number] 25mg Take 1 [facility] e 25 mg 5-23 10-03 tablet by ity of tablet 00:00: 00:00 mouth [place] 00 :00 every 6 Medical (six) Branch hours. For vertigo, nausea, dizziness. proMETHazin 2021- No [id number] 25mg Take 1 [facility] e 25 mg 5-23 10-03 tablet by ity of tablet 00:00: 00:00 mouth [place] 00 :00 every 6 Medical (six) Branch hours. For vertigo, nausea, dizziness. traZODone Yes [id number] 150mg Take 3 U nivers 50 mg 4-15 tablets by ity of tablet 00:00: mouth at [place] [address] bedtime. [facility] Yes [id number] 1250mg Take 2 [facility] 625 mg 4-15 [id number] tablets by ity o f tablet 00:00: mouth 3 [place] (three) Medical times Branch daily before meals. traZODone Yes [id number] 150mg Take 3 U nivers 50 mg 4-15 tablets by ity of tablet 00:00: mouth at [place] [address] bedtime. [facility] Yes [id number] 1250mg Take 2 [facility] 625 mg 4-15 [id number] tablets by ity o f tablet 00:00: mouth 3 [place] (three) Medical times Branch daily before meals. traZODone Yes [id number] 150mg Take 3 U nivers 50 mg 4-15 tablets by ity of tablet 00:00: mouth at [place] [address] bedtime. [facility] Yes [id number] 1250mg Take 2 [facility] 625 mg 4-15 [id number] tablets by ity o f tablet 00:00: mouth 3 [place] (three) Medical times Branch daily before meals. traZODone 0 Yes [id number] 150mg Take 3 U nivers 50 mg 4-15 tablets by ity of tablet 00:00: mouth at [place] [address] bedtime. [facility] Yes [id number] 1250mg Take 2 [facility] 625 mg 4-15 [id number] tablets by ity o f tablet 00:00: mouth 3 [place] (three) Medical times Branch daily before meals. traZODone Yes [id number] 150mg Take 3 U nivers 50 mg 4-15 tablets by ity of tablet 00:00: mouth at [place] [address] bedtime. Medical Branch colesevelam 2021-0 Yes [id number] 1250mg Take 2 [facility] 625 mg 4-15 [id number] tablets by ity o f tablet 00:00: mouth 3 [place] (three) Medical times Branch daily before meals. traZODone 2021-0 Yes [id number] 150mg Take 3 U nivers 50 mg 4-15 tablets by ity of tablet 00:00: mouth at [place] [address] bedtime. Medical Branch colesevelam 0 Yes [id number] 1250mg Take 2 [facility] 625 mg 4-15 [id number] tablets by ity o f tablet 00:00: mouth 3 [place] (three) Medical times [place] daily before meals. traZODone 0 Yes [id number] 150mg Take 3 U nivers 50 mg 4-15 tablets by ity of tablet 00:00: mouth at [place] [address] bedtime. Medical Branch traZODone 2021-0 Yes [id number] 150mg Take 3 U nivers 50 mg 4-15 tablets by ity of tablet 00:00: mouth at [place] [address] bedtime. Medical Branch traZODone 0 Yes [id number] 150mg Take 3 U nivers 50 mg 4-15 tablets by ity of tablet 00:00: mouth at [place] [address] bedtime. Medical Branch traZODone 0 Yes [id number] 150mg Take 3 U nivers 50 mg 4-15 tablets by ity of tablet 00:00: mouth at [place] [address] bedtime. Medical Branch traZODone 2021-0 Yes [id number] 150mg Take 3 [facility] nivers 50 mg 4-15 tablets by ity of tablet 00:00: mouth at [place] [address] bedtime. Medical Branch traZODone 2021-0 Yes [id number] 150mg Take 3 [facility] nivers 50 mg 4-15 tablets by ity of tablet 00:00: mouth at [place] [address] bedtime. Medical Branch traZODone 2021-0 Yes [id number] 150mg Take 3 U nivers 50 mg 4-15 tablets by ity of tablet 00:00: mouth at [place] [address] bedtime. Medical Branch traZODone 2021-0 Yes [id number] 150mg Take 3 [facility] nivers 50 mg 4-15 tablets by ity of tablet 00:00: mouth at [place] [address] bedtime. Medical Branch traZODone 2021-0 Yes [id number] 150mg Take 3 U nivers 50 mg 4-15 tablets by ity of tablet 00:00: mouth at [place] [address] bedtime. Medical Branch traZODone 2021-0 Yes [id number] 150mg Take 3 [facility] nivers 50 mg 4-15 tablets by ity of tablet 00:00: mouth at [place] [address] bedtime. Medical Branch traZODone 2021-0 Yes [id number] 150mg Take 3 [facility] nivers 50 mg 4-15 tablets by ity of tablet 00:00: mouth at [place] [address] bedtime. Medical Branch traZODone 2021-0 Yes [id number] 150mg Take 3 U nivers 50 mg 4-15 tablets by ity of tablet 00:00: mouth at [place] [address] bedtime. Medical Branch traZODone 2021-0 Yes [id number] 150mg Take 3 [facility] nivers 50 mg 4-15 tablets by ity of tablet 00:00: mouth at [place] [address] bedtime. Medical Branch traZODone 2021-0 Yes [id number] 150mg Take 3 U nivers 50 mg 4-15 tablets by ity of tablet 00:00: mouth at [place] [address] bedtime. Medical Branch traZODone 2021-0 Yes [id number] 150mg Take 3 U nivers 50 mg 4-15 tablets by ity of tablet 00:00: mouth at [place] [address] bedtime. Medical Branch traZODone 2021-0 Yes [id number] 150mg Take 3 U nivers 50 mg 4-15 tablets by ity of tablet 00:00: mouth at [place] [address] bedtime. Medical Branch traZODone 2021-0 Yes [id number] 150mg Take 3 U nivers 50 mg 4-15 tablets by ity of tablet 00:00: mouth at [place] [address] bedtime. Medical Branch traZODone 2021-0 Yes [id number] 150mg Take 3 U nivers 50 mg 4-15 tablets by ity of tablet 00:00: mouth at [place] [address] bedtime. Medical Branch traZODone 2021-0 Yes [id number] 150mg Take 3 U nivers 50 mg 4-15 tablets by ity of tablet 00:00: mouth at [place] [address] bedtime. Medical Branch traZODone 2021-0 Yes [id number] 150mg Take 3 [facility] nivers 50 mg 4-15 tablets by ity of tablet 00:00: mouth at [place] [address] bedtime. Medical Branch traZODone 2021-0 Yes [id number] 150mg Take 3 [facility] nivers 50 mg 4-15 tablets by ity of tablet 00:00: mouth at [place] [address] bedtime. Medical Branch traZODone 2021-0 Yes [id number] 150mg Take 3 [facility] nivers 50 mg 4-15 tablets by ity of tablet 00:00: mouth at [place] [address] bedtime. Medical Branch traZODone 2021-0 Yes [id number] 150mg Take 3 [facility] nivers 50 mg 4-15 tablets by ity of tablet 00:00: mouth at [place] [address] bedtime. Medical Branch traZODone 2021-0 Yes [id number] 150mg Take 3 [facility] nivers 50 mg 4-15 tablets by ity of tablet 00:00: mouth at [place] [address] bedtime. Medical Branch traZODone 2021-0 Yes [id number] 150mg Take 3 [facility] nivers 50 mg 4-15 tablets by ity of tablet 00:00: mouth at [place] [address] bedtime. Medical Branch traZODone 2021-0 Yes [id number] 150mg Take 3 [facility] nivers 50 mg 4-15 tablets by ity of tablet 00:00: mouth at [place] [address] bedtime. Medical Branch traZODone 2021-0 Yes [id number] 150mg Take 3 [facility] nivers 50 mg 4-15 tablets by ity of tablet 00:00: mouth at [place] [address] bedtime. Medical Branch traZODone 2021-0 Yes [id number] 150mg Take 3 [facility] nivers 50 mg 4-15 tablets by ity of tablet 00:00: mouth at [place] [address] bedtime. Medical Branch traZODone 2021-0 Yes [id number] 150mg Take 3 [facility] nivers 50 mg 4-15 tablets by ity of tablet 00:00: mouth at [place] [address] bedtime. Medical Branch traZODone 2021-0 Yes [id number] 150mg Take 3 [facility] nivers 50 mg 4-15 tablets by ity of tablet 00:00: mouth at [place] [address] bedtime. Medical Branch traZODone 2021-0 Yes [id number] 150mg Take 3 [facility] nivers 50 mg 4-15 tablets by ity of tablet 00:00: mouth at [place] 00 bedtime. Medical Branch traZODone 0 Yes [id number] 150mg Take 3 [facility] nivers 50 mg 4-15 tablets by ity of tablet 00:00: mouth at [place] 00 bedtime. Medical Branch colesevelam 2021-0 2- No [id number] 1250mg Take 2 [facility] 625 mg 4-15 09-14 [id number] tablets by ity of tablet 00:00: 00:00 mouth 3 [place] 00 :00 (three) Medical times Branch daily before meals. colesevelam 2021-0 2021- No [id number] 1250mg Take 2 [facility] 625 mg 4-15 09-14 [id number] tablets by ity of tablet 00:00: 00:00 mouth 3 [place] 00 :00 (three) Medical times Branch daily before meals. Syringe 2021-0 Yes [id number] Use as Uni vers with 3-14 directed ity of Needle, 00:00: [place] Disp, 00 Medical (SYRINGE Branch 3CC/25GX1") 3 mL 25 gauge x 1" Syrg gabapentin 2021-0 Yes [id number] 300mg Take 1 [facility] 300 mg 3-14 capsule by ity of capsule 00:00: mouth 3 [place] 00 (three) Medical times Branch daily. BD INTEGRA 2021-0 Yes 10mg Take 10 mg U nivers SYRINGE 3 3-14 by mouth. ity o f mL 25 gauge 00:00: [place] x 1" Syrg 00 Medical Branch Syringe 2-0 Yes [id number] Use as Uni vers with 3-14 directed ity of Needle, 00:00: [place] Disp, 00 Medical (SYRINGE Branch 3CC/25GX1") 3 mL 25 gauge x 1" Syrg gabapentin 2021-0 Yes [id number] 300mg Take 1 [facility] 300 mg 3-14 capsule by ity of capsule 00:00: mouth 3 [place] 00 (three) Medical times Branch daily. BD INTEGRA 2021-0 Yes 10mg Take 10 mg U nivers SYRINGE 3 3-14 by mouth. ity o f mL 25 gauge 00:00: [place] x 1" Syrg 00 Medical Branch Syringe 2-0 Yes [id number] Use as Uni vers with 3-14 directed ity of Needle, 00:00: [place] Disp, 00 Medical (SYRINGE Branch 3CC/25GX1") 3 mL 25 gauge x 1" Syrg gabapentin 2022-0 Yes [id number] 300mg Take 1 [facility] 300 mg 3-14 capsule by ity of capsule 00:00: mouth 3 (three) Medical times Branch daily. BD INTEGRA 2022-0 Yes 10mg Take 10 mg U nivers SYRINGE 3 3-14 by mouth. ity o f mL 25 gauge 00:00: [place] x 1" Syrg 00 Medical Branch Syringe 2-0 Yes [id number] Use as Uni vers with 3-14 directed ity of Needle, 00:00: [place] Disp, 00 Medical (SYRINGE Branch 3CC/25GX1") 3 mL 25 gauge x 1" Syrg gabapentin 2-0 Yes [id number] 300mg Take 1 [facility] 300 mg 3-14 capsule by ity of capsule 00:00: mouth 3 [place] (three) Medical times Branch daily. BD INTEGRA 2022-0 Yes 10mg Take 10 mg U nivers SYRINGE 3 3-14 by mouth. ity o f mL 25 gauge 00:00: [place] x 1" Syrg 00 Medical Branch Syringe 2-0 Yes [id number] Use as Uni vers with 3-14 directed ity of Needle, 00:00: [place] Disp, 00 Medical (SYRINGE Branch 3CC/25GX1") 3 mL 25 gauge x 1" Syrg gabapentin 2-0 Yes [id number] 300mg Take 1 [facility] 300 mg 3-14 capsule by ity of capsule 00:00: mouth 3 (three) Medical times Branch daily. BD INTEGRA 2022-0 Yes 10mg Take 10 mg U nivers SYRINGE 3 3-14 by mouth. ity o f mL 25 gauge 00:00: [place] x 1" Syrg 00 Medical Branch Syringe 2-0 Yes [id number] Use as Uni vers with 3-14 directed ity of Needle, 00:00: [place] Disp, 00 Medical (SYRINGE Branch 3CC/25GX1") 3 mL 25 gauge x 1" Syrg gabapentin 2022-0 Yes [id number] 300mg Take 1 [facility] 300 mg 3-14 capsule by ity of capsule 00:00: mouth 3 (three) Medical times Branch daily. BD INTEGRA 2022-0 Yes 10mg Take 10 mg U nivers SYRINGE 3 3-14 by mouth. ity o f mL 25 gauge 00:00: [place] x 1" Syrg 00 Medical Branch Syringe 2022-0 Yes [id number] Use as Uni vers with 3-14 directed ity of Needle, 00:00: [place] Disp, 00 Medical (SYRINGE Branch 3CC/25GX1") 3 mL 25 gauge x 1" Syrg gabapentin 2-0 Yes [id number] 300mg Take 1 [facility] 300 mg 3-14 capsule by ity of capsule 00:00: mouth 3 [place] (three) Medical times Branch daily. BD INTEGRA 2022-0 Yes 10mg Take 10 mg U nivers SYRINGE 3 3-14 by mouth. ity o f mL 25 gauge 00:00: [place] x 1" Syrg 00 Medical Branch Syringe 2-0 Yes [id number] Use as Uni vers with 3-14 directed ity of Needle, 00:00: [place] Disp, 00 Medical (SYRINGE Branch 3CC/25GX1") 3 mL 25 gauge x 1" Syrg gabapentin 2-0 Yes [id number] 300mg Take 1 [facility] 300 mg 3-14 capsule by ity of capsule 00:00: mouth 3 [place] (three) Medical times Branch daily. BD INTEGRA 2022-0 Yes 10mg Take 10 mg U nivers SYRINGE 3 3-14 by mouth. ity o f mL 25 gauge 00:00: [place] x 1" Syrg 00 Medical Branch Syringe 2-0 Yes [id number] Use as Uni vers with 3-14 directed ity of Needle, 00:00: [place] Disp, 00 Medical (SYRINGE Branch 3CC/25GX1") 3 mL 25 gauge x 1" Syrg gabapentin 2-0 Yes [id number] 300mg Take 1 [facility] 300 mg 3-14 capsule by ity of capsule 00:00: mouth 3 [place] 00 (three) Medical times Branch daily. BD INTEGRA 2022-0 Yes 10mg Take 10 mg U nivers SYRINGE 3 3-14 by mouth. ity o f mL 25 gauge 00:00: [place] x 1" Syrg 00 Medical Branch Syringe 2-0 Yes [id number] Use as Uni vers with 3-14 directed ity of Needle, 00:00: [place] Disp, 00 Medical (SYRINGE Branch 3CC/25GX1") 3 mL 25 gauge x 1" Syrg gabapentin 2022-0 Yes [id number] 300mg Take 1 [facility] 300 mg 3-14 capsule by ity of capsule 00:00: mouth 3 [place] (three) Medical times Branch daily. BD INTEGRA 2022-0 Yes 10mg Take 10 mg U nivers SYRINGE 3 3-14 by mouth. ity o f mL 25 gauge 00:00: [place] x 1" Syrg 00 Medical Branch Syringe 2022-0 Yes [id number] Use as Uni vers with 3-14 directed ity of Needle, 00:00: [place] Disp, 00 Medical (SYRINGE Branch 3CC/25GX1") 3 mL 25 gauge x 1" Syrg gabapentin 2021-0 Yes [id number] 300mg Take 1 [facility] 300 mg 3-14 capsule by ity of capsule 00:00: mouth 3 (three) Medical times Branch daily. BD INTEGRA 2022-0 Yes 10mg Take 10 mg U nivers SYRINGE 3 3-14 by mouth. ity o f mL 25 gauge 00:00: [place] x 1" Syrg 00 Medical Branch Syringe 2-0 Yes [id number] Use as Uni vers with 3-14 directed ity of Needle, 00:00: [place] Disp, 00 Medical (SYRINGE Branch 3CC/25GX1") 3 mL 25 gauge x 1" Syrg gabapentin 2021-0 Yes [id number] 300mg Take 1 [facility] 300 mg 3-14 capsule by ity of capsule 00:00: mouth 3 [place] (three) Medical times Branch daily. BD INTEGRA 2022-0 Yes 10mg Take 10 mg U nivers SYRINGE 3 3-14 by mouth. ity o f mL 25 gauge 00:00: [place] x 1" Syrg 00 Medical Branch Syringe 2-0 Yes [id number] Use as Uni vers with 3-14 directed ity of Needle, 00:00: [place] Disp, 00 Medical (SYRINGE Branch 3CC/25GX1") 3 mL 25 gauge x 1" Syrg gabapentin 2-0 Yes [id number] 300mg Take 1 [facility] 300 mg 3-14 capsule by ity of capsule 00:00: mouth 3 (three) Medical times Branch daily. BD INTEGRA 2022-0 Yes 10mg Take 10 mg U nivers SYRINGE 3 3-14 by mouth. ity o f mL 25 gauge 00:00: [place] x 1" Syrg 00 Medical Branch Syringe 2-0 Yes [id number] Use as Uni vers with 3-14 directed ity of Needle, 00:00: [place] Disp, 00 Medical (SYRINGE Branch 3CC/25GX1") 3 mL 25 gauge x 1" Syrg gabapentin 2022-0 Yes [id number] 300mg Take 1 [facility] 300 mg 3-14 capsule by ity of capsule 00:00: mouth 3 [place] (three) Medical times Branch daily. BD INTEGRA 2022-0 Yes 10mg Take 10 mg U nivers SYRINGE 3 3-14 by mouth. ity o f mL 25 gauge 00:00: [place] x 1" Syrg 00 Medical Branch Syringe 2022-0 Yes [id number] Use as Uni vers with 3-14 directed ity of Needle, 00:00: [place] Disp, 00 Medical (SYRINGE Branch 3CC/25GX1") 3 mL 25 gauge x 1" Syrg gabapentin 2022-0 Yes [id number] 300mg Take 1 [facility] 300 mg 3-14 capsule by ity of capsule 00:00: mouth 3 [place] (three) Medical times Branch daily. BD INTEGRA 2022-0 Yes 10mg Take 10 mg U nivers SYRINGE 3 3-14 by mouth. ity o f mL 25 gauge 00:00: [place] x 1" Syrg 00 Medical Branch Syringe 2022-0 Yes [id number] Use as Uni vers with 3-14 directed ity of Needle, 00:00: [place] Disp, 00 Medical (SYRINGE Branch 3CC/25GX1") 3 mL 25 gauge x 1" Syrg gabapentin 2-0 Yes [id number] 300mg Take 1 [facility] 300 mg 3-14 capsule by ity of capsule 00:00: mouth 3 [place] (three) Medical times Branch daily. BD INTEGRA 2022-0 Yes 10mg Take 10 mg U nivers SYRINGE 3 3-14 by mouth. ity o f mL 25 gauge 00:00: [place] x 1" Syrg 00 Medical Branch Syringe 2022-0 Yes [id number] Use as Uni vers with 3-14 directed ity of Needle, 00:00: [place] Disp, 00 Medical (SYRINGE Branch 3CC/25GX1") 3 mL 25 gauge x 1" Syrg gabapentin 2022-0 Yes [id number] 300mg Take 1 [facility] 300 mg 3-14 capsule by ity of capsule 00:00: mouth 3 [place] (three) Medical times Branch daily. BD INTEGRA 2022-0 Yes 10mg Take 10 mg U nivers SYRINGE 3 3-14 by mouth. ity o f mL 25 gauge 00:00: [place] x 1" Syrg 00 Medical Branch Syringe 2-0 Yes [id number] Use as [facility] vers with 3-14 directed ity of Needle, 00:00: [place] Disp, 00 Medical (SYRINGE Branch 3CC/25GX1") 3 mL 25 gauge x 1" Syrg gabapentin 2-0 Yes [id number] 300mg Take 1 [facility] 300 mg 3-14 capsule by ity of capsule 00:00: mouth 3 [place] 00 (three) Medical times Branch daily. BD INTEGRA 2022-0 Yes 10mg Take 10 mg U nivers SYRINGE 3 3-14 by mouth. ity o f mL 25 gauge 00:00: [place] x 1" Syrg 00 Medical Branch Syringe 2021-0 Yes [id number] Use as [facility] vers with 3-14 directed ity of Needle, 00:00: [place] Disp, 00 Medical (SYRINGE Branch 3CC/25GX1") 3 mL 25 gauge x 1" Syrg gabapentin 2021-0 Yes [id number] 300mg Take 1 [facility] 300 mg 3-14 capsule by ity of capsule 00:00: mouth 3 [place] 00 (three) Medical times Branch daily. BD INTEGRA 2022-0 Yes 10mg Take 10 mg U nivers SYRINGE 3 3-14 by mouth. ity o f mL 25 gauge 00:00: [place] x 1" Syrg 00 Medical Branch Syringe 2-0 Yes [id number] Use as [facility] vers with 3-14 directed ity of Needle, 00:00: [place] Disp, 00 Medical (SYRINGE Branch 3CC/25GX1") 3 mL 25 gauge x 1" Syrg gabapentin 2-0 Yes [id number] 300mg Take 1 [facility] 300 mg 3-14 capsule by ity of capsule 00:00: mouth 3 [place] 00 (three) Medical times Branch daily. BD INTEGRA 2022-0 Yes 10mg Take 10 mg U nivers SYRINGE 3 3-14 by mouth. ity o f mL 25 gauge 00:00: [place] x 1" Syrg 00 Medical Branch Syringe 2022-0 Yes [id number] Use as [facility] vers with 3-14 directed ity of Needle, 00:00: [place] Disp, 00 Medical (SYRINGE Branch 3CC/25GX1") 3 mL 25 gauge x 1" Syrg gabapentin 2022-0 Yes [id number] 300mg Take 1 [facility] 300 mg 3-14 capsule by ity of capsule 00:00: mouth 3 (three) Medical times Branch daily. BD INTEGRA 2022-0 Yes 10mg Take 10 mg [facility] nivers SYRINGE 3 3-14 by mouth. ity o f mL 25 gauge 00:00: [place] x 1" Syrg 00 Medical Branch Syringe 2022-0 Yes [id number] Use as [facility] vers with 3-14 directed ity of Needle, 00:00: [place] Disp, 00 Medical (SYRINGE Branch 3CC/25GX1") 3 mL 25 gauge x 1" Syrg gabapentin 2022-0 Yes [id number] 300mg Take 1 [facility] 300 mg 3-14 capsule by ity of capsule 00:00: mouth 3 (three) Medical times Branch daily. BD INTEGRA 2022-0 Yes 10mg Take 10 mg [facility] nivers SYRINGE 3 3-14 by mouth. ity o f mL 25 gauge 00:00: [place] x 1" Syrg 00 Medical Branch Syringe 2-0 Yes [id number] Use as [facility] vers with 3-14 directed ity of Needle, 00:00: [place] Disp, 00 Medical (SYRINGE Branch 3CC/25GX1") 3 mL 25 gauge x 1" Syrg gabapentin 2-0 Yes [id number] 300mg Take 1 [facility] 300 mg 3-14 capsule by ity of capsule 00:00: mouth 3 (three) Medical times Branch daily. BD INTEGRA 2022-0 Yes 10mg Take 10 mg [facility] nivers SYRINGE 3 3-14 by mouth. ity o f mL 25 gauge 00:00: [place] x 1" Syrg 00 Medical Branch Syringe 2022-0 Yes [id number] Use as [facility] vers with 3-14 directed ity of Needle, 00:00: [place] Disp, 00 Medical (SYRINGE Branch 3CC/25GX1") 3 mL 25 gauge x 1" Syrg gabapentin 2022-0 Yes [id number] 300mg Take 1 [facility] 300 mg 3-14 capsule by ity of capsule 00:00: mouth 3 (three) Medical times Branch daily. BD INTEGRA 2022-0 Yes 10mg Take 10 mg [facility] nivers SYRINGE 3 3-14 by mouth. ity o f mL 25 gauge 00:00: [place] x 1" Syrg 00 Medical Branch Syringe 2022-0 Yes [id number] Use as [facility] vers with 3-14 directed ity of Needle, 00:00: [place] Disp, 00 Medical (SYRINGE Branch 3CC/25GX1") 3 mL 25 gauge x 1" Syrg gabapentin 2022-0 Yes [id number] 300mg Take 1 [facility] 300 mg 3-14 capsule by ity of capsule 00:00: mouth 3 [place] (three) Medical times Branch daily. BD INTEGRA 2022-0 Yes 10mg Take 10 mg [facility] nivers SYRINGE 3 3-14 by mouth. ity o f mL 25 gauge 00:00: [place] x 1" Syrg 00 Medical Branch Syringe 2-0 Yes [id number] Use as [facility] vers with 3-14 directed ity of Needle, 00:00: [place] Disp, 00 Medical (SYRINGE Branch 3CC/25GX1") 3 mL 25 gauge x 1" Syrg gabapentin 2022-0 Yes [id number] 300mg Take 1 [facility] 300 mg 3-14 capsule by ity of capsule 00:00: mouth 3 [place] (three) Medical times Branch daily. BD INTEGRA 2022-0 Yes 10mg Take 10 mg [facility] nivers SYRINGE 3 3-14 by mouth. ity o f mL 25 gauge 00:00: [place] x 1" Syrg 00 Medical Branch Syringe 2-0 Yes [id number] Use as [facility] vers with 3-14 directed ity of Needle, 00:00: [place] Disp, 00 Medical (SYRINGE Branch 3CC/25GX1") 3 mL 25 gauge x 1" Syrg gabapentin 2-0 Yes [id number] 300mg Take 1 [facility] 300 mg 3-14 capsule by ity of capsule 00:00: mouth 3 [place] 00 (three) Medical times Branch daily. BD INTEGRA 2022-0 Yes 10mg Take 10 mg U nivers SYRINGE 3 3-14 by mouth. ity o f mL 25 gauge 00:00: [place] x 1" Syrg 00 Medical Branch Syringe 2-0 Yes [id number] Use as [facility] vers with 3-14 directed ity of Needle, 00:00: [place] Disp, 00 Medical (SYRINGE Branch 3CC/25GX1") 3 mL 25 gauge x 1" Syrg gabapentin 2022-0 Yes [id number] 300mg Take 1 [facility] 300 mg 3-14 capsule by ity of capsule 00:00: mouth 3 (three) Medical times Branch daily. BD INTEGRA 2022-0 Yes 10mg Take 10 mg [facility] nivers SYRINGE 3 3-14 by mouth. ity o f mL 25 gauge 00:00: [place] x 1" Syrg 00 Medical Branch Syringe 2-0 Yes [id number] Use as [facility] vers with 3-14 directed ity of Needle, 00:00: [place] Disp, 00 Medical (SYRINGE Branch 3CC/25GX1") 3 mL 25 gauge x 1" Syrg gabapentin 2021-0 Yes [id number] 300mg Take 1 [facility] 300 mg 3-14 capsule by ity of capsule 00:00: mouth 3 (three) Medical times Branch daily. BD INTEGRA 2022-0 Yes 10mg Take 10 mg [facility] nivers SYRINGE 3 3-14 by mouth. ity o f mL 25 gauge 00:00: [place] x 1" Syrg 00 Medical Branch Syringe 2021-0 Yes [id number] Use as [facility] vers with 3-14 directed ity of Needle, 00:00: [place] Disp, Medical (SYRINGE Branch 3CC/25GX1") 3 mL 25 gauge x 1" Syrg gabapentin 2021-0 Yes [id number] 300mg Take 1 [facility] 300 mg 3-14 capsule by ity of capsule 00:00: mouth 3 [place] (three) Medical times Branch daily. BD INTEGRA 2022-0 Yes 10mg Take 10 mg U nivers SYRINGE 3 3-14 by mouth. ity o f mL 25 gauge 00:00: [place] x 1" Syrg 00 Medical Branch Syringe 2021-0 Yes [id number] Use as [facility] vers with 3-14 directed ity of Needle, 00:00: [place] Disp, 00 Medical (SYRINGE Branch 3CC/25GX1") 3 mL 25 gauge x 1" Syrg gabapentin 2-0 Yes [id number] 300mg Take 1 [facility] 300 mg 3-14 capsule by ity of capsule 00:00: mouth 3 [place] (three) Medical times Branch daily. BD INTEGRA 2022-0 Yes 10mg Take 10 mg U nivers SYRINGE 3 3-14 by mouth. ity o f mL 25 gauge 00:00: [place] x 1" Syrg 00 Medical Branch Syringe 2-0 Yes [id number] Use as [facility] vers with 3-14 directed ity of Needle, 00:00: [place] Disp, 00 Medical (SYRINGE Branch 3CC/25GX1") 3 mL 25 gauge x 1" Syrg gabapentin 2022-0 Yes [id number] 300mg Take 1 [facility] 300 mg 3-14 capsule by ity of capsule 00:00: mouth 3 (three) Medical times Branch daily. BD INTEGRA 2022-0 Yes 10mg Take 10 mg U nivers SYRINGE 3 3-14 by mouth. ity o f mL 25 gauge 00:00: [place] x 1" Syrg 00 Medical Branch Syringe 2022-0 Yes [id number] Use as [facility] vers with 3-14 directed ity of Needle, 00:00: [place] Disp, 00 Medical (SYRINGE Branch 3CC/25GX1") 3 mL 25 gauge x 1" Syrg gabapentin 2022-0 Yes [id number] 300mg Take 1 [facility] 300 mg 3-14 capsule by ity of capsule 00:00: mouth 3 (three) Medical times Branch daily. BD INTEGRA 2022-0 Yes 10mg Take 10 mg U nivers SYRINGE 3 3-14 by mouth. ity o f mL 25 gauge 00:00: [place] x 1" Syrg 00 Medical Branch Syringe 2022-0 Yes [id number] Use as [facility] vers with 3-14 directed ity of Needle, 00:00: [place] Disp, 00 Medical (SYRINGE Branch 3CC/25GX1") 3 mL 25 gauge x 1" Syrg gabapentin 2-0 Yes [id number] 300mg Take 1 [facility] 300 mg 3-14 capsule by ity of capsule 00:00: mouth 3 (three) Medical times Branch daily. BD INTEGRA 2022-0 Yes 10mg Take 10 mg U nivers SYRINGE 3 3-14 by mouth. ity o f mL 25 gauge 00:00: [place] x 1" Syrg 00 Medical Branch Syringe 2022-0 Yes [id number] Use as [facility] vers with 3-14 directed ity of Needle, 00:00: [place] Disp, 00 Medical (SYRINGE Branch 3CC/25GX1") 3 mL 25 gauge x 1" Syrg gabapentin 2022-0 Yes [id number] 300mg Take 1 [facility] 300 mg 3-14 capsule by ity of capsule 00:00: mouth 3 (three) Medical times Branch daily. BD INTEGRA 2022-0 Yes 10mg Take 10 mg U nivers SYRINGE 3 3-14 by mouth. ity o f mL 25 gauge 00:00: [place] x 1" Syrg 00 Medical Branch Syringe 2-0 Yes [id number] Use as Uni vers with 3-14 directed ity of Needle, 00:00: [place] Disp, 00 Medical (SYRINGE Branch 3CC/25GX1") 3 mL 25 gauge x 1" Syrg gabapentin 2021-0 Yes [id number] 300mg Take 1 [facility] 300 mg 3-14 capsule by ity of capsule 00:00: mouth 3 [place] 00 (three) Medical times Branch daily. BD INTEGRA 2021-0 Yes 10mg Take 10 mg U nivers SYRINGE 3 3-14 by mouth. ity o f mL 25 gauge 00:00: [place] x 1" Syrg 00 Medical Branch Syringe 2021-0 Yes [id number] Use as [facility] vers with 3-14 directed ity of Needle, 00:00: [place] Disp, 00 Medical (SYRINGE Branch 3CC/25GX1") 3 mL 25 gauge x 1" Syrg gabapentin 2021-0 Yes [id number] 300mg Take 1 [facility] 300 mg 3-14 capsule by ity of capsule 00:00: mouth 3 00 (three) Medical times Branch daily. BD INTEGRA 2021-0 Yes 10mg Take 10 mg U nivers SYRINGE 3 3-14 by mouth. ity o f mL 25 gauge 00:00: [place] x 1" Syrg 00 Medical Branch Syringe 2-0 Yes [id number] Use as [facility] vers with 3-14 directed ity of Needle, 00:00: [place] Disp, 00 Medical (SYRINGE Branch 3CC/25GX1") 3 mL 25 gauge x 1" Syrg gabapentin 2021-0 Yes [id number] 300mg Take 1 [facility] 300 mg 3-14 capsule by ity of capsule 00:00: mouth 3 [place] 00 (three) Medical times Branch daily. BD INTEGRA 2021-0 Yes 10mg Take 10 mg U nivers SYRINGE 3 3-14 by mouth. ity o f mL 25 gauge 00:00: [place] x 1" Syrg 00 Medical Branch traMADoL 50 2-0 Yes [id number] 50mg Take 1 [facility] ers mg tablet 3-01 tablet by ity o f 00:00: mouth [place] 00 every 6 Medical (six) Branch hours as needed (chronic joint pain, chronic muscle pain). Indication s: chronic pain traMADoL 50 2021-0 Yes [id number] 50mg Take 1 [facility] ers mg tablet 3-01 tablet by ity o f 00:00: mouth [place] 00 every 6 Medical (six) Branch hours as needed (chronic joint pain, chronic muscle pain). Indication s: chronic pain traMADoL 50 2021-0 Yes [id number] 50mg Take 1 [facility] ers mg tablet 3-01 tablet by ity o f 00:00: mouth [place] 00 every 6 Medical (six) Branch hours as needed (chronic joint pain, chronic muscle pain). Indication s: chronic pain traMADoL 50 2021-0 Yes [id number] 50mg Take 1 [facility] ers mg tablet 3-01 tablet by ity o f 00:00: mouth [place] 00 every 6 Medical (six) Branch hours as needed (chronic joint pain, chronic muscle pain). Indication s: chronic pain traMADoL 50 2021-0 Yes [id number] 50mg Take 1 [facility] ers mg tablet 3-01 tablet by ity o f 00:00: mouth [place] 00 every 6 Medical (six) Branch hours as needed (chronic joint pain, chronic muscle pain). Indication s: chronic pain traMADoL 50 2021-0 Yes [id number] 50mg Take 1 [facility] ers mg tablet 3-01 tablet by ity o f 00:00: mouth [place] 00 every 6 Medical (six) Branch hours as needed (chronic joint pain, chronic muscle pain). Indication s: chronic pain traMADoL 50 2021-0 2021- No [id number] 50mg Take 1 Uni vers mg tablet 07-13 tablet by ity of 00:00: 00:00 mouth [place] 00 :00 every 6 Medical (six) Branch hours as needed (chronic joint pain, chronic muscle pain). Indication s: chronic pain traMADoL 50 2021-0 2021- No [id number] 50mg Take 1 Uni vers mg tablet 07-13 tablet by ity of 00:00: 00:00 mouth [place] 00 :00 every 6 Medical (six) Branch hours as needed (chronic joint pain, chronic muscle pain). Indication s: chronic pain meloxicam 2021-0 Yes [id number] 15mg Take 1 Un anu 15 mg 2-03 tablet by ity of tablet 00:00: mouth [place] 00 daily. Medical Branch meloxicam 2021-0 Yes [id number] 15mg Take 1 Un anu 15 mg 2-03 tablet by ity of tablet 00:00: mouth [place] 00 daily. [facility] meloxicam 0 Yes [id number] 15mg Take 1 Un anu 15 mg 2-03 tablet by ity of tablet 00:00: mouth [place] 00 daily. [facility] meloxicam 0 Yes [id number] 15mg Take 1 Un anu 15 mg 2-03 tablet by ity of tablet 00:00: mouth [place] 00 daily. [facility] Branch meloxicam Yes [id number] 15mg Take 1 Un anu 15 mg 2-03 tablet by ity of tablet 00:00: mouth [place] 00 daily. [facility] meloxicam Yes [id number] 15mg Take 1 Un anu 15 mg 2-03 tablet by ity of tablet 00:00: mouth [place] 00 daily. [facility] meloxicam Yes [id number] 15mg Take 1 Un anu 15 mg 2-03 tablet by ity of tablet 00:00: mouth [place] 00 daily. [facility] Branch meloxicam Yes [id number] 15mg Take 1 Un anu 15 mg 2-03 tablet by ity of tablet 00:00: mouth [place] 00 daily. [facility] meloxicam Yes [id number] 15mg Take 1 Un anu 15 mg 2-03 tablet by ity of tablet 00:00: mouth [place] 00 daily. [facility] meloxicam Yes [id number] 15mg Take 1 Un anu 15 mg 2-03 tablet by ity of tablet 00:00: mouth [place] 00 daily. [facility] meloxicam 0 Yes [id number] 15mg Take 1 Un anu 15 mg 2-03 tablet by ity of tablet 00:00: mouth [place] 00 daily. [facility] meloxicam 0 Yes [id number] 15mg Take 1 Un anu 15 mg 2-03 tablet by ity of tablet 00:00: mouth [place] 00 daily. [facility] meloxicam 0 Yes [id number] 15mg Take 1 Un anu 15 mg 2-03 tablet by ity of tablet 00:00: mouth [place] 00 daily. [facility] meloxicam 0 Yes [id number] 15mg Take 1 Un anu 15 mg 2-03 tablet by ity of tablet 00:00: mouth [place] 00 daily. [facility] meloxicam 0 Yes [id number] 15mg Take 1 Un anu 15 mg 2-03 tablet by ity of tablet 00:00: mouth [place] 00 daily. [facility] meloxicam 0 Yes [id number] 15mg Take 1 Un anu 15 mg 2-03 tablet by ity of tablet 00:00: mouth [place] 00 daily. [facility] meloxicam 0 Yes [id number] 15mg Take 1 Un anu 15 mg 2-03 tablet by ity of tablet 00:00: mouth [place] 00 daily. [facility] meloxicam 0 Yes [id number] 15mg Take 1 Un anu 15 mg 2-03 tablet by ity of tablet 00:00: mouth [place] 00 daily. [facility] meloxicam 0 Yes [id number] 15mg Take 1 Un anu 15 mg 2-03 tablet by ity of tablet 00:00: mouth [place] 00 daily. [facility] meloxicam 0 Yes [id number] 15mg Take 1 Un anu 15 mg 2-03 tablet by ity of tablet 00:00: mouth [place] 00 daily. [facility] meloxicam 0 Yes [id number] 15mg Take 1 Un anu 15 mg 2-03 tablet by ity of tablet 00:00: mouth [place] 00 daily. [facility] meloxicam 0 Yes [id number] 15mg Take 1 Un anu 15 mg 2-03 tablet by ity of tablet 00:00: mouth [place] 00 daily. [facility] meloxicam 0 Yes [id number] 15mg Take 1 Un anu 15 mg 2-03 tablet by ity of tablet 00:00: mouth [place] 00 daily. [facility] meloxicam 0 Yes [id number] 15mg Take 1 Un anu 15 mg 2-03 tablet by ity of tablet 00:00: mouth [place] 00 daily. [facility] meloxicam 0 Yes [id number] 15mg Take 1 Un anu 15 mg 2-03 tablet by ity of tablet 00:00: mouth [place] 00 daily. [facility] meloxicam 0 Yes [id number] 15mg Take 1 Un anu 15 mg 2-03 tablet by ity of tablet 00:00: mouth [place] 00 daily. [facility] meloxicam 0 Yes [id number] 15mg Take 1 Un anu 15 mg 2-03 tablet by ity of tablet 00:00: mouth [place] 00 daily. [facility] meloxicam 2021-0 Yes [id number] 15mg Take 1 Un anu 15 mg 2-03 tablet by ity of tablet 00:00: mouth [place] 00 daily. [facility] meloxicam 2021-0 Yes [id number] 15mg Take 1 Un anu 15 mg 2-03 tablet by ity of tablet 00:00: mouth [place] 00 daily. [facility] meloxicam 0 Yes [id number] 15mg Take 1 Un anu 15 mg 2-03 tablet by ity of tablet 00:00: mouth [place] 00 daily. [facility] meloxicam 0 Yes [id number] 15mg Take 1 Un anu 15 mg 2-03 tablet by ity of tablet 00:00: mouth [place] 00 daily. [facility] meloxicam 0 Yes [id number] 15mg Take 1 Un anu 15 mg 2-03 tablet by ity of tablet 00:00: mouth [place] 00 daily. [facility] meloxicam 0 Yes [id number] 15mg Take 1 Un anu 15 mg 2-03 tablet by ity of tablet 00:00: mouth [place] 00 daily. [facility] meloxicam 0 Yes [id number] 15mg Take 1 Un anu 15 mg 2-03 tablet by ity of tablet 00:00: mouth [place] 00 daily. [facility] meloxicam 0 Yes [id number] 15mg Take 1 Un anu 15 mg 2-03 tablet by ity of tablet 00:00: mouth [place] 00 daily. [facility] meloxicam 2021-0 Yes [id number] 15mg Take 1 Un anu 15 mg 2-03 tablet by ity of tablet 00:00: mouth [place] 00 daily. [facility] meloxicam 2021-0 Yes [id number] 15mg Take 1 Un anu 15 mg 2-03 tablet by ity of tablet 00:00: mouth [place] 00 daily. [facility] meloxicam 2021-0 Yes [id number] 15mg Take 1 Un anu 15 mg 2-03 tablet by ity of tablet 00:00: mouth [place] 00 daily. [facility] losartan 25 2021-0 Yes [id number] 25mg Take 1 [facility] mg tablet 1-14 tablet by ity o f 00:00: mouth [place] 00 daily. Medical Branch omeprazole 2021-0 Yes [id number] 40mg Take 1 [facility] 40 mg 1-14 capsule by ity of capsule 00:00: mouth 2 (two) Medical times Branch daily. losartan 25 2021-0 Yes [id number] 25mg Take 1 [facility] mg tablet 1-14 tablet by ity o f 00:00: mouth [place] 00 daily. Medical Branch omeprazole 2021-0 Yes [id number] 40mg Take 1 [facility] 40 mg 1-14 capsule by ity of capsule 00:00: mouth 2 (two) Medical times Branch daily. losartan 25 2021-0 Yes [id number] 25mg Take 1 [facility] mg tablet 1-14 tablet by ity o f 00:00: mouth [place] 00 daily. Medical Branch omeprazole 2021-0 Yes [id number] 40mg Take 1 [facility] 40 mg 1-14 capsule by ity of capsule 00:00: mouth (two) Medical times Branch daily. losartan 25 2021-0 Yes [id number] 25mg Take 1 [facility] mg tablet 1-14 tablet by ity o f 00:00: mouth [place] 00 daily. Medical Branch omeprazole 2021-0 Yes [id number] 40mg Take 1 [facility] 40 mg 1-14 capsule by ity of capsule 00:00: mouth (two) Medical times Branch daily. losartan 25 2021-0 Yes [id number] 25mg Take 1 [facility] mg tablet 1-14 tablet by ity o f 00:00: mouth [place] 00 daily. Medical Branch omeprazole 2021-0 Yes [id number] 40mg Take 1 [facility] 40 mg 1-14 capsule by ity of capsule 00:00: mouth 2 (two) Medical times Branch daily. losartan 25 2021-0 Yes [id number] 25mg Take 1 [facility] mg tablet 1-14 tablet by ity o f 00:00: mouth [place] 00 daily. Medical Branch omeprazole 2021-0 Yes [id number] 40mg Take 1 [facility] 40 mg 1-14 capsule by ity of capsule 00:00: mouth 2 (two) Medical times Branch daily. losartan 25 2021-0 Yes [id number] 25mg Take 1 [facility] mg tablet 1-14 tablet by ity o f 00:00: mouth [place] 00 daily. Medical Branch omeprazole 2021-0 Yes [id number] 40mg Take 1 [facility] 40 mg 1-14 capsule by ity of capsule 00:00: mouth 2 (two) Medical times Branch daily. losartan 25 2021-0 Yes [id number] 25mg Take 1 [facility] mg tablet 1-14 tablet by ity o f 00:00: mouth [place] 00 daily. Medical Branch omeprazole 2021-0 Yes [id number] 40mg Take 1 [facility] 40 mg 1-14 capsule by ity of capsule 00:00: mouth 2 (two) Medical times Branch daily. losartan 25 2021-0 Yes [id number] 25mg Take 1 [facility] mg tablet 1-14 tablet by ity o f 00:00: mouth [place] 00 daily. Medical Branch omeprazole 0 Yes [id number] 40mg Take 1 [facility] 40 mg 1-14 capsule by ity of capsule 00:00: mouth (two) Medical times Branch daily. losartan 25 0 Yes [id number] 25mg Take 1 [facility] mg tablet 1-14 tablet by ity o f 00:00: mouth [place] 00 daily. Medical Branch omeprazole 2021-0 Yes [id number] 40mg Take 1 [facility] 40 mg 1-14 capsule by ity of capsule 00:00: mouth (two) Medical times Branch daily. losartan 25 2021-0 Yes [id number] 25mg Take 1 [facility] mg tablet 1-14 tablet by ity o f 00:00: mouth [place] 00 daily. Medical Branch omeprazole 2021-0 Yes [id number] 40mg Take 1 [facility] 40 mg 1-14 capsule by ity of capsule 00:00: mouth (two) Medical times Branch daily. losartan 25 2021-0 Yes [id number] 25mg Take 1 [facility] mg tablet 1-14 tablet by ity o f 00:00: mouth [place] 00 daily. Medical Branch omeprazole 2021-0 Yes [id number] 40mg Take 1 [facility] 40 mg 1-14 capsule by ity of capsule 00:00: mouth 2 (two) Medical times Branch daily. losartan 25 2021-0 Yes [id number] 25mg Take 1 [facility] mg tablet 1-14 tablet by ity o f 00:00: mouth [place] 00 daily. Medical Branch omeprazole 2021-0 Yes [id number] 40mg Take 1 [facility] 40 mg 1-14 capsule by ity of capsule 00:00: mouth 2 (two) Medical times Branch daily. losartan 25 2021-0 Yes [id number] 25mg Take 1 [facility] mg tablet 1-14 tablet by ity o f 00:00: mouth [place] 00 daily. Medical Branch omeprazole 2021-0 Yes [id number] 40mg Take 1 [facility] 40 mg 1-14 capsule by ity of capsule 00:00: mouth 2 (two) Medical times Branch daily. losartan 25 2021-0 Yes [id number] 25mg Take 1 [facility] mg tablet 1-14 tablet by ity o f 00:00: mouth 00 daily. Medical Branch omeprazole 2021-0 Yes [id number] 40mg Take 1 [facility] 40 mg 1-14 capsule by ity of capsule 00:00: mouth (two) Medical times Branch daily. losartan 25 2021-0 Yes [id number] 25mg Take 1 [facility] mg tablet 1-14 tablet by ity o f 00:00: mouth 00 daily. Medical Branch omeprazole 2021-0 Yes [id number] 40mg Take 1 [facility] 40 mg 1-14 capsule by ity of capsule 00:00: mouth (two) Medical times Branch daily. losartan 25 2021-0 Yes [id number] 25mg Take 1 [facility] mg tablet 1-14 tablet by ity o f 00:00: mouth 00 daily. Medical Branch omeprazole 2021-0 Yes [id number] 40mg Take 1 [facility] 40 mg 1-14 capsule by ity of capsule 00:00: mouth (two) Medical times Branch daily. losartan 25 2021-0 Yes [id number] 25mg Take 1 [facility] mg tablet 1-14 tablet by ity o f 00:00: mouth [place] 00 daily. Medical Branch omeprazole 2021-0 Yes [id number] 40mg Take 1 [facility] 40 mg 1-14 capsule by ity of capsule 00:00: mouth 2 (two) Medical times Branch daily. losartan 25 2021-0 Yes [id number] 25mg Take 1 [facility] mg tablet 1-14 tablet by ity o f 00:00: mouth [place] 00 daily. Medical Branch omeprazole 2021-0 Yes [id number] 40mg Take 1 [facility] 40 mg 1-14 capsule by ity of capsule 00:00: mouth (two) Medical times Branch daily. losartan 25 2021-0 Yes [id number] 25mg Take 1 [facility] mg tablet 1-14 tablet by ity o f 00:00: mouth [place] 00 daily. Medical Branch omeprazole 2021-0 Yes [id number] 40mg Take 1 [facility] 40 mg 1-14 capsule by ity of capsule 00:00: mouth 2 (two) Medical times Branch daily. losartan 25 2021-0 Yes [id number] 25mg Take 1 [facility] mg tablet 1-14 tablet by ity o f 00:00: mouth [place] 00 daily. Medical Branch omeprazole 2021-0 Yes [id number] 40mg Take 1 [facility] 40 mg 1-14 capsule by ity of capsule 00:00: mouth (two) Medical times Branch daily. losartan 25 2021-0 Yes [id number] 25mg Take 1 [facility] mg tablet 1-14 tablet by ity o f 00:00: mouth 00 daily. Medical Branch omeprazole 2021-0 Yes [id number] 40mg Take 1 [facility] 40 mg 1-14 capsule by ity of capsule 00:00: mouth (two) Medical times Branch daily. losartan 25 2021-0 Yes [id number] 25mg Take 1 [facility] mg tablet 1-14 tablet by ity o f 00:00: mouth 00 daily. Medical Branch omeprazole 2021-0 Yes [id number] 40mg Take 1 [facility] 40 mg 1-14 capsule by ity of capsule 00:00: mouth (two) Medical times Branch daily. losartan 25 2021-0 Yes [id number] 25mg Take 1 [facility] mg tablet 1-14 tablet by ity o f 00:00: mouth [place] 00 daily. Medical Branch omeprazole 2021-0 Yes [id number] 40mg Take 1 [facility] 40 mg 1-14 capsule by ity of capsule 00:00: mouth (two) Medical times Branch daily. losartan 25 2021-0 Yes [id number] 25mg Take 1 [facility] mg tablet 1-14 tablet by ity o f 00:00: mouth [place] 00 daily. Medical Branch omeprazole 2021-0 Yes [id number] 40mg Take 1 [facility] 40 mg 1-14 capsule by [facility] of capsule 00:00: mouth 2 [place] 00 (two) Medical times Branch daily. losartan 25 2021-0 Yes [id number] 25mg Take 1 [facility] mg tablet 1-14 tablet by ity o f 00:00: mouth [place] 00 daily. Medical [facility] omeprazole 2021-0 Yes [id number] 40mg Take 1 [facility] 40 mg 1-14 capsule by [facility] of capsule 00:00: mouth 2 (two) Medical times Branch daily. losartan 25 2021-0 Yes [id number] 25mg Take 1 [facility] mg tablet 1-14 tablet by ity o f 00:00: mouth [place] 00 daily. Medical [facility] omeprazole 2021-0 Yes [id number] 40mg Take 1 [facility] 40 mg 1-14 capsule by [facility] of capsule 00:00: mouth 2 (two) Medical times Branch daily. losartan 25 2021-0 Yes [id number] 25mg Take 1 [facility] mg tablet 1-14 tablet by ity o f 00:00: mouth [place] 00 daily. Medical [facility] omeprazole 2021-0 Yes [id number] 40mg Take 1 [facility] 40 mg 1-14 capsule by [facility] of capsule 00:00: mouth (two) Medical times Branch daily. losartan 25 2021-0 Yes [id number] 25mg Take 1 [facility] mg tablet 1-14 tablet by ity o f 00:00: mouth [place] 00 daily. Medical Branch omeprazole 2021-0 Yes [id number] 40mg Take 1 [facility] 40 mg 1-14 capsule by [facility] of capsule 00:00: mouth (two) Medical times Branch daily. losartan 25 2021-0 Yes [id number] 25mg Take 1 [facility] mg tablet 1-14 tablet by ity o f 00:00: mouth [place] 00 daily. Medical [facility] omeprazole 2021-0 Yes [id number] 40mg Take 1 [facility] 40 mg 1-14 capsule by [facility] of capsule 00:00: mouth 2 (two) Medical times Branch daily. losartan 25 2021-0 Yes [id number] 25mg Take 1 [facility] mg tablet 1-14 tablet by ity o f 00:00: mouth [place] 00 daily. Medical [facility] omeprazole 2021-0 Yes [id number] 40mg Take 1 [facility] 40 mg 1-14 capsule by [facility] of capsule 00:00: mouth 2 (two) Medical times Branch daily. losartan 25 2021-0 Yes [id number] 25mg Take 1 [facility] mg tablet 1-14 tablet by ity o f 00:00: mouth [place] 00 daily. Medical [facility] omeprazole 2021-0 Yes [id number] 40mg Take 1 [facility] 40 mg 1-14 capsule by [facility] of capsule 00:00: mouth 2 (two) Medical times Branch daily. losartan 25 2021-0 Yes [id number] 25mg Take 1 [facility] mg tablet 1-14 tablet by ity o f 00:00: mouth [place] 00 daily. [facility] omeprazole 2021-0 Yes [id number] 40mg Take 1 [facility] 40 mg 1-14 capsule by [facility] of capsule 00:00: mouth 2 (two) Medical times Branch daily. losartan 25 2021-0 Yes [id number] 25mg Take 1 [facility] mg tablet 1-14 tablet by ity o f 00:00: mouth [place] 00 daily. Medical [facility] omeprazole 0 Yes [id number] 40mg Take 1 [facility] 40 mg 1-14 capsule by [facility] of capsule 00:00: mouth (two) Medical times Branch daily. losartan 25 0 Yes [id number] 25mg Take 1 [facility] mg tablet 1-14 tablet by ity o f 00:00: mouth [place] 00 daily. Medical [facility] omeprazole 2021-0 Yes [id number] 40mg Take 1 [facility] 40 mg 1-14 capsule by [facility] of capsule 00:00: mouth (two) Medical times Branch daily. losartan 25 2021-0 Yes [id number] 25mg Take 1 [facility] mg tablet 1-14 tablet by ity o f 00:00: mouth [place] 00 daily. Medical [facility] omeprazole 2021-0 Yes [id number] 40mg Take 1 [facility] 40 mg 1-14 capsule by [facility] of capsule 00:00: mouth (two) Medical times Branch daily. losartan 25 2021-0 Yes [id number] 25mg Take 1 [facility] mg tablet 1-14 tablet by ity o f 00:00: mouth [place] 00 daily. Medical [facility] omeprazole 2021-0 Yes [id number] 40mg Take 1 [facility] 40 mg 1-14 capsule by [facility] of capsule 00:00: mouth 2 (two) Medical times Branch daily. losartan 25 2021-0 Yes [id number] 25mg Take 1 [facility] mg tablet 1-14 tablet by ity o f 00:00: mouth [place] 00 daily. Medical [facility] omeprazole 0 Yes [id number] 40mg Take 1 [facility] 40 mg 1-14 capsule by it[facility] of capsule 00:00: mouth 2 [place] 00 (two) Medical times Branch daily. clonazePAM 2020-05 Yes [id number] 1mg Take 1 [facility] (KLONOPIN) 2-29 tablet by [facility] of 1 mg tablet 00:00: mouth 3 [place] 00 (three) Medical times [facility] daily as needed (dizziness ). clonazePAM 2020-05 Yes [id number] 1mg Take 1 [facility] (KLONOPIN) 2-29 tablet by [facility] of 1 mg tablet 00:00: mouth 3 [place] (three) Medical times [facility] daily as needed (dizziness ). clonazePAM 2020-05 Yes [id number] 1mg Take 1 [facility] (KLONOPIN) 2-29 tablet by [facility] of 1 mg tablet 00:00: mouth 3 [place] (three) Medical times [facility] daily as needed (dizziness ). clonazePAM 2020-05 Yes [id number] 1mg Take 1 [facility] (KLONOPIN) 2-29 tablet by [facility] of 1 mg tablet 00:00: mouth 3 [place] (three) Medical times [facility] daily as needed (dizziness ). clonazePAM 2020-05 Yes [id number] 1mg Take 1 [facility] (KLONOPIN) 2-29 tablet by [facility] of 1 mg tablet 00:00: mouth 3 [place] (three) Medical times [facility] daily as needed (dizziness ). clonazePAM 2020-05 Yes [id number] 1mg Take 1 [facility] (KLONOPIN) 2-29 tablet by [facility] of 1 mg tablet 00:00: mouth 3 [place] (three) Medical times [facility] daily as needed (dizziness ). clonazePAM 2020-05 Yes [id number] 1mg Take 1 [facility] (KLONOPIN) 2-29 tablet by [facility] of 1 mg tablet 00:00: mouth 3 [place] (three) Medical times [facility] daily as needed (dizziness ). clonazePAM 2020-05 Yes [id number] 1mg Take 1 [facility] (KLONOPIN) 2-29 tablet by [facility] of 1 mg tablet 00:00: mouth 3 [place] (three) Medical times [facility] daily as needed (dizziness ). clonazePAM 2020-05 Yes [id number] 1mg Take 1 [facility] (KLONOPIN) 2-29 tablet by ity of 1 mg tablet 00:00: mouth 3 [place] (three) Medical times [facility] daily as needed (dizziness ). clonazePAM 2020-05 Yes [id number] 1mg Take 1 [facility] (KLONOPIN) 2-29 tablet by [facility] of 1 mg tablet 00:00: mouth 3 [place] (three) Medical times [facility] daily as needed (dizziness ). clonazePAM 2020-05 Yes [id number] 1mg Take 1 [facility] (KLONOPIN) 2-29 tablet by [facility] of 1 mg tablet 00:00: mouth 3 [place] (three) Medical times [facility] daily as needed (dizziness ). clonazePAM 2020-05 Yes [id number] 1mg Take 1 [facility] (KLONOPIN) 2-29 tablet by [facility] of 1 mg tablet 00:00: mouth 3 [place] (three) Medical times [facility] daily as needed (dizziness ). clonazePAM 2020-05 Yes [id number] 1mg Take 1 [facility] (KLONOPIN) 2-29 tablet by [facility] of 1 mg tablet 00:00: mouth 3 [place] (three) Medical times [facility] daily as needed (dizziness ). clonazePAM 2020-05 Yes [id number] 1mg Take 1 [facility] (KLONOPIN) 2-29 tablet by [facility] of 1 mg tablet 00:00: mouth 3 [place] (three) Medical times [facility] daily as needed (dizziness ). clonazePAM 2020-05 Yes [id number] 1mg Take 1 [facility] (KLONOPIN) 2-29 tablet by [facility] of 1 mg tablet 00:00: mouth 3 [place] (three) Medical times [facility] daily as needed (dizziness ). clonazePAM 2020-05 Yes [id number] 1mg Take 1 [facility] (KLONOPIN) 2-29 tablet by [facility] of 1 mg tablet 00:00: mouth 3 [place] (three) Medical times [facility] daily as needed (dizziness ). clonazePAM 2020-05 Yes [id number] 1mg Take 1 [facility] (KLONOPIN) 2-29 tablet by [facility] of 1 mg tablet 00:00: mouth 3 [place] (three) Medical times [facility] daily as needed (dizziness ). clonazePAM 2020-05 Yes [id number] 1mg Take 1 [facility] (KLONOPIN) 2-29 tablet by [facility]y of 1 mg tablet 00:00: mouth 3 [place] (three) Medical times [facility] daily as needed (dizziness ). clonazePAM 2020-05 Yes [id number] 1mg Take 1 [facility] (KLONOPIN) 2-29 tablet by ity of 1 mg tablet 00:00: mouth 3 [place] (three) Medical times [facility] daily as needed (dizziness ). clonazePAM 2020-05 Yes [id number] 1mg Take 1 [facility] (KLONOPIN) 2-29 tablet by it[facility] of 1 mg tablet 00:00: mouth 3 [place] (three) Medical times [facility] daily as needed (dizziness ). clonazePAM 2020-05 Yes [id number] 1mg Take 1 [facility] (KLONOPIN) 2-29 tablet by ity of 1 mg tablet 00:00: mouth 3 [place] (three) Medical times [facility] daily as needed (dizziness ). clonazePAM 2020-05 Yes [id number] 1mg Take 1 [facility] (KLONOPIN) 2-29 tablet by ity of 1 mg tablet 00:00: mouth 3 [place] (three) Medical times [facility] daily as needed (dizziness ). clonazePAM 2020-05 Yes [id number] 1mg Take 1 [facility] (KLONOPIN) 2-29 tablet by [facility] of 1 mg tablet 00:00: mouth 3 [place] (three) Medical times [facility] daily as needed (dizziness ). clonazePAM 2020-05 Yes [id number] 1mg Take 1 [facility] (KLONOPIN) 2-29 tablet by ity of 1 mg tablet 00:00: mouth 3 [place] (three) Medical times [facility] daily as needed (dizziness ). clonazePAM 2020-05 Yes [id number] 1mg Take 1 [facility] (KLONOPIN) 2-29 tablet by [facility]y of 1 mg tablet 00:00: mouth 3 [place] (three) Medical times [facility] daily as needed (dizziness ). clonazePAM 2020-05 Yes [id number] 1mg Take 1 [facility] (KLONOPIN) 2-29 tablet by [facility] of 1 mg tablet 00:00: mouth 3 [place] (three) Medical times [facility] daily as needed (dizziness ). clonazePAM 2020-05 Yes [id number] 1mg Take 1 [facility] (KLONOPIN) 2-29 tablet by [facility]y of 1 mg tablet 00:00: mouth 3 [place] (three) Medical times [facility] daily as needed (dizziness ). clonazePAM 2020-05 Yes [id number] 1mg Take 1 [facility] (KLONOPIN) 2-29 tablet by [facility]y of 1 mg tablet 00:00: mouth 3 [place] (three) Medical times [facility] daily as needed (dizziness ). clonazePAM 2020-05 Yes [id number] 1mg Take 1 [facility] (KLONOPIN) 2-29 tablet by [facility]y of 1 mg tablet 00:00: mouth 3 [place] (three) Medical times [facility] daily as needed (dizziness ). clonazePAM 2020-05 Yes [id number] 1mg Take 1 [facility] (KLONOPIN) 2-29 tablet by [facility]y of 1 mg tablet 00:00: mouth 3 [place] (three) Medical times [facility] daily as needed (dizziness ). clonazePAM 2020-05 Yes [id number] 1mg Take 1 [facility] (KLONOPIN) 2-29 tablet by ity of 1 mg tablet 00:00: mouth 3 [place] (three) Medical times [facility] daily as needed (dizziness ). clonazePAM 2020-05 Yes [id number] 1mg Take 1 [facility] (KLONOPIN) 2-29 tablet by [facility]y of 1 mg tablet 00:00: mouth 3 [place] (three) Medical times [facility] daily as needed (dizziness ). clonazePAM 2020-05 Yes [id number] 1mg Take 1 [facility] (KLONOPIN) 2-29 tablet by [facility]y of 1 mg tablet 00:00: mouth 3 [place] (three) Medical times [facility] daily as needed (dizziness ). clonazePAM 2020-05 Yes [id number] 1mg Take 1 [facility] (KLONOPIN) 2-29 tablet by ity of 1 mg tablet 00:00: mouth 3 [place] (three) Medical times [facility] daily as needed (dizziness ). clonazePAM 2020-05 Yes [id number] 1mg Take 1 [facility] (KLONOPIN) 2-29 tablet by ity of 1 mg tablet 00:00: mouth 3 [place] (three) Medical times [facility] daily as needed (dizziness ). clonazePAM 2020-05 Yes [id number] 1mg Take 1 [facility] (KLONOPIN) 2-29 tablet by ity of 1 mg tablet 00:00: mouth 3 [place] (three) Medical times [facility] daily as needed (dizziness ). clonazePAM 2020-05 Yes [id number] 1mg Take 1 [facility] (KLONOPIN) 2-29 tablet by ity of 1 mg tablet 00:00: mouth 3 [place] (three) Medical times [facility] daily as needed (dizziness ). clonazePAM 2020-05 Yes [id number] 1mg Take 1 [facility] (KLONOPIN) 2-29 tablet by [facility]y of 1 mg tablet 00:00: mouth 3 [place] (three) Medical times Branch daily as needed (dizziness ). fluticasone 2020-05 Yes [id number] 2{puff} Inhale 2 [facility] propionate 1-08 Puffs ity of (FLOVENT 00:00: every 12 [place] HFA) 110 00 (twelve) Medical mcg/actuati hours. Branch on inhaler fluticasone 2020-05 Yes [id number] 2{puff} Inhale 2 [facility] propionate 1-08 Puffs ity of (FLOVENT 00:00: every 12 [place] HFA) 110 00 (twelve) Medical mcg/actuati hours. Branch on inhaler fluticasone 2020-05 Yes [id number] 2{puff} Inhale 2 [facility] propionate 1-08 Puffs ity of (FLOVENT 00:00: every 12 [place] HFA) 110 00 (twelve) Medical mcg/actuati hours. Branch on inhaler fluticasone 2020-05 Yes [id number] 2{puff} Inhale 2 [facility] propionate 1-08 Puffs ity of (FLOVENT 00:00: every 12 [place] HFA) 110 00 (twelve) Medical mcg/actuati hours. Branch on inhaler fluticasone 2020-05 Yes [id number] 2{puff} Inhale 2 [facility] propionate 1-08 Puffs ity of (FLOVENT 00:00: every 12 [place] HFA) 110 00 (twelve) Medical mcg/actuati hours. Branch on inhaler fluticasone 2020-05 Yes [id number] 2{puff} Inhale 2 [facility] propionate 1-08 Puffs ity of (FLOVENT 00:00: every 12 [place] HFA) 110 00 (twelve) Medical mcg/actuati hours. Branch on inhaler fluticasone 2020-05 Yes [id number] 2{puff} Inhale 2 [facility] propionate 1-08 Puffs ity of (FLOVENT 00:00: every 12 [place] HFA) 110 00 (twelve) Medical mcg/actuati hours. Branch on inhaler fluticasone 2020-05 Yes [id number] 2{puff} Inhale 2 [facility] propionate 1-08 Puffs ity of (FLOVENT 00:00: every 12 [place] HFA) 110 00 (twelve) Medical mcg/actuati hours. Branch on inhaler fluticasone 2020-05 Yes [id number] 2{puff} Inhale 2 [facility] propionate 1-08 Puffs ity of (FLOVENT 00:00: every 12 [place] HFA) 110 00 (twelve) Medical mcg/actuati hours. Branch on inhaler fluticasone 2020-05 Yes [id number] 2{puff} Inhale 2 [facility] propionate 1-08 Puffs ity of (FLOVENT 00:00: every 12 [place] HFA) 110 00 (twelve) Medical mcg/actuati hours. Branch on inhaler fluticasone 2020-05 Yes [id number] 2{puff} Inhale 2 [facility] propionate 1-08 Puffs ity of (FLOVENT 00:00: every 12 [place] HFA) 110 00 (twelve) Medical mcg/actuati hours. Branch on inhaler fluticasone 2020-05 Yes [id number] 2{puff} Inhale 2 [facility] propionate 1-08 Puffs ity of (FLOVENT 00:00: every 12 [place] HFA) 110 00 (twelve) Medical mcg/actuati hours. Branch on inhaler fluticasone 2020-05 Yes [id number] 2{puff} Inhale 2 [facility] propionate 1-08 Puffs ity of (FLOVENT 00:00: every 12 [place] HFA) 110 00 (twelve) Medical mcg/actuati hours. Branch on inhaler fluticasone 2020-05 Yes [id number] 2{puff} Inhale 2 [facility] propionate 1-08 Puffs ity of (FLOVENT 00:00: every 12 [place] HFA) 110 00 (twelve) Medical mcg/actuati hours. Branch on inhaler fluticasone 2020-05 Yes [id number] 2{puff} Inhale 2 [facility] propionate 1-08 Puffs ity of (FLOVENT 00:00: every 12 [place] HFA) 110 00 (twelve) Medical mcg/actuati hours. Branch on inhaler fluticasone 2020-05 Yes [id number] 2{puff} Inhale 2 [facility] propionate 1-08 Puffs ity of (FLOVENT 00:00: every 12 [place] HFA) 110 00 (twelve) Medical mcg/actuati hours. Branch on inhaler fluticasone 2020-05 Yes [id number] 2{puff} Inhale 2 [facility] propionate 1-08 Puffs ity of (FLOVENT 00:00: every 12 [place] HFA) 110 00 (twelve) Medical mcg/actuati hours. Branch on inhaler fluticasone 2020-05 Yes [id number] 2{puff} Inhale 2 [facility] propionate 1-08 Puffs ity of (FLOVENT 00:00: every 12 [place] [facility]FA) 110 00 (twelve) Medical mcg/actuati hours. Branch on inhaler fluticasone 2020-05 Yes [id number] 2{puff} Inhale 2 [facility] propionate 1-08 Puffs ity of (FLOVENT 00:00: every 12 [place] HFA) 110 00 (twelve) Medical mcg/actuati hours. Branch on inhaler fluticasone 2020-05 Yes [id number] 2{puff} Inhale 2 [facility] propionate 1-08 Puffs ity of (FLOVENT 00:00: every 12 [place] HFA) 110 00 (twelve) Medical mcg/actuati hours. Branch on inhaler fluticasone 2020-05 Yes [id number] 2{puff} Inhale 2 [facility] propionate 1-08 Puffs ity of (FLOVENT 00:00: every 12 [place] HFA) 110 00 (twelve) Medical mcg/actuati hours. Branch on inhaler fluticasone 2020-05 Yes [id number] 2{puff} Inhale 2 [facility] propionate 1-08 Puffs ity of (FLOVENT 00:00: every 12 [place] HFA) 110 00 (twelve) Medical mcg/actuati hours. Branch on inhaler fluticasone 2020-05 Yes [id number] 2{puff} Inhale 2 [facility] propionate 1-08 Puffs ity of (FLOVENT 00:00: every 12 [place] HFA) 110 00 (twelve) Medical mcg/actuati hours. Branch on inhaler fluticasone 2020-05 Yes [id number] 2{puff} Inhale 2 [facility] propionate 1-08 Puffs ity of (FLOVENT 00:00: every 12 [place] [facility]FA) 110 00 (twelve) Medical mcg/actuati hours. Branch on inhaler fluticasone 2020-05 Yes [id number] 2{puff} Inhale 2 [facility] propionate 1-08 Puffs ity of (FLOVENT 00:00: every 12 [place] [facility]FA) 110 00 (twelve) Medical mcg/actuati hours. Branch on inhaler fluticasone 2020-05 Yes [id number] 2{puff} Inhale 2 [facility] propionate 1-08 Puffs ity of (FLOVENT 00:00: every 12 [place] [facility]FA) 110 00 (twelve) Medical mcg/actuati hours. Branch on inhaler fluticasone 2020-05 Yes [id number] 2{puff} Inhale 2 [facility] propionate 1-08 Puffs ity of (FLOVENT 00:00: every 12 [place] HFA) 110 00 (twelve) Medical mcg/actuati hours. Branch on inhaler fluticasone 2020-05 Yes [id number] 2{puff} Inhale 2 [facility] propionate 1-08 Puffs ity of (FLOVENT 00:00: every 12 [place] HFA) 110 00 (twelve) Medical mcg/actuati hours. Branch on inhaler fluticasone 2020-05 Yes [id number] 2{puff} Inhale 2 [facility] propionate 1-08 Puffs ity of (FLOVENT 00:00: every 12 [place] HFA) 110 00 (twelve) Medical mcg/actuati hours. Branch on inhaler fluticasone 2020-05 Yes [id number] 2{puff} Inhale 2 [facility] propionate 1-08 Puffs ity of (FLOVENT 00:00: every 12 [place] HFA) 110 00 (twelve) Medical mcg/actuati hours. Branch on inhaler fluticasone 2020-05 Yes [id number] 2{puff} Inhale 2 [facility] propionate 1-08 Puffs ity of (FLOVENT 00:00: every 12 [place] HFA) 110 00 (twelve) Medical mcg/actuati hours. Branch on inhaler fluticasone 2020-05 Yes [id number] 2{puff} Inhale 2 [facility] propionate 1-08 Puffs ity of (FLOVENT 00:00: every 12 [place] HFA) 110 00 (twelve) Medical mcg/actuati hours. Branch on inhaler fluticasone 2020-05 Yes [id number] 2{puff} Inhale 2 [facility] propionate 1-08 Puffs ity of (FLOVENT 00:00: every 12 [place] HFA) 110 00 (twelve) Medical mcg/actuati hours. Branch on inhaler fluticasone 2020-05 Yes [id number] 2{puff} Inhale 2 [facility] propionate 1-08 Puffs ity of (FLOVENT 00:00: every 12 [place] HFA) 110 00 (twelve) Medical mcg/actuati hours. Branch on inhaler fluticasone 2020-05 Yes [id number] 2{puff} Inhale 2 [facility] propionate 1-08 Puffs ity of (FLOVENT 00:00: every 12 [place] HFA) 110 00 (twelve) Medical mcg/actuati hours. Branch on inhaler fluticasone 2020-05 Yes [id number] 2{puff} Inhale 2 [facility] propionate 1-08 Puffs ity of (FLOVENT 00:00: every 12 [place] HFA) 110 00 (twelve) Medical mcg/actuati hours. Branch on inhaler fluticasone 2020-05 Yes [id number] 2{puff} Inhale 2 [facility] propionate 1-08 Puffs ity of (FLOVENT 00:00: every 12 [place] HFA) 110 00 (twelve) Medical mcg/actuati hours. Branch on inhaler fluticasone 2020-05 Yes [id number] 2{puff} Inhale 2 [facility] propionate 1-08 Puffs ity of (FLOVENT 00:00: every 12 [place] HFA) 110 00 (twelve) Medical mcg/actuati hours. Branch on inhaler albuterol Yes [id number] 2.5mg Inhale 3 [facility] 2.5 mg /3 6-22 mL every 4 ity of mL (0.083 00:00: (four) [place] %) 00 hours as Medical nebulizer needed for Bran ch solution Wheezing or Shortness of Breath. ipratropium Yes [id number] 2{spray Use 2 [facility] 21 mcg 6-22 } Sprays in ity of (0.03 %) 00:00: each [place] nasal spray 00 nostril Medic al every 12 Branch (twelve) hours. albuterol 2020-0 Yes [id number] 2.5mg Inhale 3 [facility] 2.5 mg /3 6-22 mL every 4 ity of mL (0.083 00:00: (four) [place] %) 00 hours as Medical nebulizer needed for Bran ch solution Wheezing or Shortness of Breath. ipratropium 2020-0 Yes [id number] 2{spray Use 2 [facility] 21 mcg 6-22 } Sprays in ity of (0.03 %) 00:00: each [place] nasal spray 00 nostril Medic al every 12 Branch (twelve) hours. albuterol 2020-0 Yes [id number] 2.5mg Inhale 3 [facility] 2.5 mg /3 6-22 mL every 4 ity of mL (0.083 00:00: (four) [place] %) 00 hours as Medical nebulizer needed for Bran ch solution Wheezing or Shortness of Breath. ipratropium 2020-0 Yes [id number] 2{spray Use 2 [facility] 21 mcg 6-22 } Sprays in ity of (0.03 %) 00:00: each [place] nasal spray 00 nostril Medic al every 12 Branch (twelve) hours. albuterol 2020-0 Yes [id number] 2.5mg Inhale 3 [facility] 2.5 mg /3 6-22 mL every 4 ity of mL (0.083 00:00: (four) [place] %) 00 hours as Medical nebulizer needed for Bran ch solution Wheezing or Shortness of Breath. ipratropium 2020-0 Yes [id number] 2{spray Use 2 [facility] 21 mcg 6-22 } Sprays in ity of (0.03 %) 00:00: each [place] nasal spray 00 nostril Medic al every 12 Branch (twelve) hours. albuterol 2020-0 Yes [id number] 2.5mg Inhale 3 [facility] 2.5 mg /3 6-22 mL every 4 ity of mL (0.083 00:00: (four) [place] %) 00 hours as Medical nebulizer needed for Bran ch solution Wheezing or Shortness of Breath. ipratropium 2020-0 Yes [id number] 2{spray Use 2 [facility] 21 mcg 6-22 } Sprays in ity of (0.03 %) 00:00: each [place] nasal spray 00 nostril Medic al every 12 Branch (twelve) hours. albuterol 2020-0 Yes [id number] 2.5mg Inhale 3 [facility] 2.5 mg /3 6-22 mL every 4 ity of mL (0.083 00:00: (four) [place] %) 00 hours as Medical nebulizer needed for Bran ch solution Wheezing or Shortness of Breath. ipratropium 2020-0 Yes [id number] 2{spray Use 2 [facility] 21 mcg 6-22 } Sprays in ity of (0.03 %) 00:00: each [place] nasal spray 00 nostril Medic al every 12 Branch (twelve) hours. albuterol 2020-0 Yes [id number] 2.5mg Inhale 3 [facility] 2.5 mg /3 6-22 mL every 4 ity of mL (0.083 00:00: (four) [place] %) 00 hours as Medical nebulizer needed for Bran ch solution Wheezing or Shortness of Breath. albuterol 2020-0 Yes [id number] 2.5mg Inhale 3 [facility] 2.5 mg /3 6-22 mL every 4 ity of mL (0.083 00:00: (four) [place] %) 00 hours as Medical nebulizer needed for Bran ch solution Wheezing or Shortness of Breath. albuterol 2020-0 Yes [id number] 2.5mg Inhale 3 [facility] 2.5 mg /3 6-22 mL every 4 ity of mL (0.083 00:00: (four) [place] %) 00 hours as Medical nebulizer needed for Bran ch solution Wheezing or Shortness of Breath. albuterol 2020-0 Yes [id number] 2.5mg Inhale 3 [facility] 2.5 mg /3 6-22 mL every 4 ity of mL (0.083 00:00: (four) [place] %) 00 hours as Medical nebulizer needed for Bran ch solution Wheezing or Shortness of Breath. albuterol 2020-0 Yes [id number] 2.5mg Inhale 3 [facility] 2.5 mg /3 6-22 mL every 4 ity of mL (0.083 00:00: (four) [place] %) 00 hours as Medical nebulizer needed for Bran ch solution Wheezing or Shortness of Breath. albuterol 2020-0 Yes [id number] 2.5mg Inhale 3 [facility] 2.5 mg /3 6-22 mL every 4 ity of mL (0.083 00:00: ([facility]) [place] %) 00 hours as Medical nebulizer needed for Bran ch solution Wheezing or Shortness of Breath. albuterol 2020-0 Yes [id number] 2.5mg Inhale 3 [facility] 2.5 mg /3 6-22 mL every 4 ity of mL (0.083 00:00: ([facility]) [place] %) 00 hours as Medical nebulizer needed for Bran ch solution Wheezing or Shortness of Breath. albuterol 2020-0 Yes [id number] 2.5mg Inhale 3 [facility] 2.5 mg /3 6-22 mL every 4 ity of mL (0.083 00:00: ([facility]) [place] %) 00 hours as Medical nebulizer needed for Bran ch solution Wheezing or Shortness of Breath. albuterol 2020-0 Yes [id number] 2.5mg Inhale 3 [facility] 2.5 mg /3 6-22 mL every 4 ity of mL (0.083 00:00: ([facility]) [place] %) 00 hours as Medical nebulizer needed for Bran ch solution Wheezing or Shortness of Breath. albuterol 2020-0 Yes [id number] 2.5mg Inhale 3 [facility] 2.5 mg /3 6-22 mL every 4 ity of mL (0.083 00:00: ([facility]) [place] %) 00 hours as Medical nebulizer needed for Bran ch solution Wheezing or Shortness of Breath. albuterol 2020-0 Yes [id number] 2.5mg Inhale 3 [facility] 2.5 mg /3 6-22 mL every 4 ity of mL (0.083 00:00: ([facility]) [place] %) 00 hours as Medical nebulizer needed for Bran ch solution Wheezing or Shortness of Breath. albuterol 2020-0 Yes [id number] 2.5mg Inhale 3 [facility] 2.5 mg /3 6-22 mL every 4 ity of mL (0.083 00:00: ([facility]) [place] %) 00 hours as Medical nebulizer needed for Bran ch solution Wheezing or Shortness of Breath. albuterol 2020-0 Yes [id number] 2.5mg Inhale 3 [facility] 2.5 mg /3 6-22 mL every 4 ity of mL (0.083 00:00: (four) [place] %) 00 hours as Medical nebulizer needed for Bran ch solution Wheezing or Shortness of Breath. albuterol 2020-0 Yes [id number] 2.5mg Inhale 3 [facility] 2.5 mg /3 6-22 mL every 4 ity of mL (0.083 00:00: (four) [place] %) 00 hours as Medical nebulizer needed for Bran ch solution Wheezing or Shortness of Breath. albuterol 2020-0 Yes [id number] 2.5mg Inhale 3 [facility] 2.5 mg /3 6-22 mL every 4 ity of mL (0.083 00:00: ([facility]) [place] %) 00 hours as Medical nebulizer needed for Bran ch solution Wheezing or Shortness of Breath. albuterol 2020-0 Yes [id number] 2.5mg Inhale 3 [facility] 2.5 mg /3 6-22 mL every 4 ity of mL (0.083 00:00: ([facility]) [place] %) 00 hours as Medical nebulizer needed for Bran ch solution Wheezing or Shortness of Breath. albuterol 2020-0 Yes [id number] 2.5mg Inhale 3 [facility] 2.5 mg /3 6-22 mL every 4 ity of mL (0.083 00:00: (four) [place] %) 00 hours as Medical nebulizer needed for Bran ch solution Wheezing or Shortness of Breath. albuterol 2020-0 Yes [id number] 2.5mg Inhale 3 [facility] 2.5 mg /3 6-22 mL every 4 ity of mL (0.083 00:00: (four) [place] %) 00 hours as Medical nebulizer needed for Bran ch solution Wheezing or Shortness of Breath. albuterol 2020-0 Yes [id number] 2.5mg Inhale 3 [facility] 2.5 mg /3 6-22 mL every 4 ity of mL (0.083 00:00: (four) [place] %) 00 hours as Medical nebulizer needed for Bran ch solution Wheezing or Shortness of Breath. albuterol 1-0 Yes [id number] 2.5mg Inhale 3 Univers 2.5 mg /3 6-22 mL every 4 ity of mL (0.083 00:00: (four) [place] %) 00 hours as Medical nebulizer needed for Bran ch solution Wheezing or Shortness of Breath. albuterol 1-0 Yes [id number] 2.5mg Inhale 3 Univers 2.5 mg /3 6-22 mL every 4 ity of mL (0.083 00:00: (four) [place] %) 00 hours as Medical nebulizer needed for Bran ch solution Wheezing or Shortness of Breath. albuterol 2020-0 Yes [id number] 2.5mg Inhale 3 Univers 2.5 mg /3 6-22 mL every 4 ity of mL (0.083 00:00: (four) [place] %) 00 hours as Medical nebulizer needed for Bran ch solution Wheezing or Shortness of Breath. albuterol 2020-0 Yes [id number] 2.5mg Inhale 3 Univers 2.5 mg /3 6-22 mL every 4 ity of mL (0.083 00:00: ([facility]) [place] %) 00 hours as Medical nebulizer needed for Bran ch solution Wheezing or Shortness of Breath. albuterol 2020-0 Yes [id number] 2.5mg Inhale 3 Univers 2.5 mg /3 6-22 mL every 4 ity of mL (0.083 00:00: (four) [place] %) 00 hours as Medical nebulizer needed for Bran ch solution Wheezing or Shortness of Breath. albuterol 2020-0 Yes [id number] 2.5mg Inhale 3 Univers 2.5 mg /3 6-22 mL every 4 ity of mL (0.083 00:00: (four) [place] %) 00 hours as Medical nebulizer needed for Bran ch solution Wheezing or Shortness of Breath. albuterol 2020-0 Yes [id number] 2.5mg Inhale 3 Univers 2.5 mg /3 6-22 mL every 4 ity of mL (0.083 00:00: (four) [place] %) 00 hours as Medical nebulizer needed for Bran ch solution Wheezing or Shortness of Breath. albuterol 1-0 Yes [id number] 2.5mg Inhale 3 Univers 2.5 mg /3 6-22 mL every 4 ity of mL (0.083 00:00: (four) [place] %) 00 hours as Medical nebulizer needed for Bran ch solution Wheezing or Shortness of Breath. albuterol 0 Yes [id number] 2.5mg Inhale 3 Univers 2.5 mg /3 6-22 mL every 4 ity of mL (0.083 00:00: (four) [place] %) 00 hours as Medical nebulizer needed for Bran ch solution Wheezing or Shortness of Breath. albuterol 0 Yes [id number] 2.5mg Inhale 3 Univers 2.5 mg /3 6-22 mL every 4 ity of mL (0.083 00:00: (four) [place] %) 00 hours as Medical nebulizer needed for Bran ch solution Wheezing or Shortness of Breath. albuterol Yes [id number] 2.5mg Inhale 3 Univers 2.5 mg /3 6-22 mL every 4 ity of mL (0.083 00:00: (four) [place] %) 00 hours as Medical nebulizer needed for Bran ch solution Wheezing or Shortness of Breath. albuterol Yes [id number] 2.5mg Inhale 3 Univers 2.5 mg /3 6-22 mL every 4 ity of mL (0.083 00:00: (four) [place] %) 00 hours as Medical nebulizer needed for Bran ch solution Wheezing or Shortness of Breath. albuterol Yes [id number] 2.5mg Inhale 3 Univers 2.5 mg /3 6-22 mL every 4 ity of mL (0.083 00:00: (four) [place] %) 00 hours as Medical nebulizer needed for Bran ch solution Wheezing or Shortness of Breath. ipratropium 2021- No [id number] 2{spray Use 2 Univers 21 mcg 11-03-14 } Sprays in ity of (0.03 %) 00:00: 00:00 each [place] nasal spray 00 :00 nostril Medic al every 12 Branch (twelve) hours. ipratropium 2021- No [id number] 2{spray Use 2 Univers 21 mcg 11-03 09-14 } Sprays in ity of (0.03 %) 00:00: 00:00 each [place] nasal spray 00 :00 nostril Medic al every 12 Branch (twelve) hours. LORazepam 2021-0 Yes [id number] .5mg Take 1 U nivers 0.5 mg 6-21 tablet by ity of tablet 00:00: mouth (three) Medical times Branch daily as needed (Dizziness ). LORazepam 2021-0 Yes [id number] .5mg Take 1 U nivers 0.5 mg 6-21 tablet by ity of tablet 00:00: mouth 3 (three) Medical times Branch daily as needed (Dizziness ). LORazepam 2021-0 Yes [id number] .5mg Take 1 U nivers 0.5 mg 6-21 tablet by ity of tablet 00:00: mouth (three) Medical times Branch daily as needed (Dizziness ). LORazepam 2021-0 Yes [id number] .5mg Take 1 U nivers 0.5 mg 6-21 tablet by ity of tablet 00:00: mouth (three) Medical times Branch daily as needed (Dizziness ). LORazepam 1-0 Yes [id number] .5mg Take 1 U nivers 0.5 mg 6-21 tablet by ity of tablet 00:00: mouth (three) Medical times Branch daily as needed (Dizziness ). LORazepam 1-0 Yes [id number] .5mg Take 1 U nivers 0.5 mg 6-21 tablet by ity of tablet 00:00: mouth (three) Medical times Branch daily as needed (Dizziness ). LORazepam 2021-0 Yes [id number] .5mg Take 1 U nivers 0.5 mg 6-21 tablet by ity of tablet 00:00: mouth (three) Medical times Branch daily as needed (Dizziness ). LORazepam 2021-0 Yes [id number] .5mg Take 1 U nivers 0.5 mg 6-21 tablet by ity of tablet 00:00: mouth (three) Medical times Branch daily as needed (Dizziness ). LORazepam 2021-0 Yes [id number] .5mg Take 1 U nivers 0.5 mg 6-21 tablet by ity of tablet 00:00: mouth 3 (three) Medical times Branch daily as needed (Dizziness ). LORazepam 2021-0 Yes [id number] .5mg Take 1 U nivers 0.5 mg 6-21 tablet by ity of tablet 00:00: mouth (three) Medical times Branch daily as needed (Dizziness ). LORazepam 2021-0 Yes [id number] .5mg Take 1 U nivers 0.5 mg 6-21 tablet by ity of tablet 00:00: mouth 3 (three) Medical times Branch daily as needed (Dizziness ). LORazepam 2021-0 Yes [id number] .5mg Take 1 U nivers 0.5 mg 6-21 tablet by ity of tablet 00:00: mouth (three) Medical times Branch daily as needed (Dizziness ). LORazepam 2021-0 Yes [id number] .5mg Take 1 U nivers 0.5 mg 6-21 tablet by ity of tablet 00:00: mouth (three) Medical times Branch daily as needed (Dizziness ). LORazepam 2021-0 Yes [id number] .5mg Take 1 U nivers 0.5 mg 6-21 tablet by ity of tablet 00:00: mouth (three) Medical times Branch daily as needed (Dizziness ). LORazepam 2021-0 Yes [id number] .5mg Take 1 U nivers 0.5 mg 6-21 tablet by ity of tablet 00:00: mouth (three) Medical times Branch daily as needed (Dizziness ). LORazepam 2021-0 Yes [id number] .5mg Take 1 U nivers 0.5 mg 6-21 tablet by ity of tablet 00:00: mouth (three) Medical times Branch daily as needed (Dizziness ). LORazepam 2021-0 Yes [id number] .5mg Take 1 U nivers 0.5 mg 6-21 tablet by ity of tablet 00:00: mouth (three) Medical times Branch daily as needed (Dizziness ). LORazepam 2021-0 Yes [id number] .5mg Take 1 U nivers 0.5 mg 6-21 tablet by ity of tablet 00:00: mouth (three) Medical times Branch daily as needed (Dizziness ). LORazepam 2021-0 Yes [id number] .5mg Take 1 U nivers 0.5 mg 6-21 tablet by ity of tablet 00:00: mouth (three) Medical times Branch daily as needed (Dizziness ). LORazepam 2021-0 Yes [id number] .5mg Take 1 U nivers 0.5 mg 6-21 tablet by ity of tablet 00:00: mouth (three) Medical times Branch daily as needed (Dizziness ). LORazepam 2021-0 Yes [id number] .5mg Take 1 U nivers 0.5 mg 6-21 tablet by ity of tablet 00:00: mouth (three) Medical times Branch daily as needed (Dizziness ). LORazepam 2021-0 Yes [id number] .5mg Take 1 U nivers 0.5 mg 6-21 tablet by ity of tablet 00:00: mouth (three) Medical times Branch daily as needed (Dizziness ). LORazepam 2021-0 Yes [id number] .5mg Take 1 U nivers 0.5 mg 6-21 tablet by ity of tablet 00:00: mouth (three) Medical times Branch daily as needed (Dizziness ). LORazepam 2021-0 Yes [id number] .5mg Take 1 U nivers 0.5 mg 6-21 tablet by ity of tablet 00:00: mouth (three) Medical times Branch daily as needed (Dizziness ). LORazepam 2021-0 Yes [id number] .5mg Take 1 U nivers 0.5 mg 6-21 tablet by ity of tablet 00:00: mouth (three) Medical times Branch daily as needed (Dizziness ). LORazepam 2021-0 Yes [id number] .5mg Take 1 U nivers 0.5 mg 6-21 tablet by ity of tablet 00:00: mouth (three) Medical times Branch daily as needed (Dizziness ). LORazepam 2021-0 Yes [id number] .5mg Take 1 U nivers 0.5 mg 6-21 tablet by ity of tablet 00:00: mouth (three) Medical times Branch daily as needed (Dizziness ). LORazepam 2021-0 Yes [id number] .5mg Take 1 U nivers 0.5 mg 6-21 tablet by ity of tablet 00:00: mouth 3 (three) Medical times Branch daily as needed (Dizziness ). LORazepam 2021-0 Yes [id number] .5mg Take 1 U nivers 0.5 mg 6-21 tablet by ity of tablet 00:00: mouth 3 (three) Medical times Branch daily as needed (Dizziness ). LORazepam 2021-0 Yes [id number] .5mg Take 1 U nivers 0.5 mg 6-21 tablet by ity of tablet 00:00: mouth 3 (three) Medical times Branch daily as needed (Dizziness ). LORazepam 2021-0 Yes [id number] .5mg Take 1 U nivers 0.5 mg 6-21 tablet by ity of tablet 00:00: mouth (three) Medical times Branch daily as needed (Dizziness ). LORazepam 2021-0 Yes [id number] .5mg Take 1 U nivers 0.5 mg 6-21 tablet by ity of tablet 00:00: mouth (three) Medical times Branch daily as needed (Dizziness ). LORazepam 2021-0 Yes [id number] .5mg Take 1 U nivers 0.5 mg 6-21 tablet by ity of tablet 00:00: mouth (three) Medical times Branch daily as needed (Dizziness ). LORazepam 2021-0 Yes [id number] .5mg Take 1 U nivers 0.5 mg 6-21 tablet by ity of tablet 00:00: mouth (three) Medical times Branch daily as needed (Dizziness ). LORazepam 2021-0 Yes [id number] .5mg Take 1 U nivers 0.5 mg 6-21 tablet by ity of tablet 00:00: mouth (three) Medical times Branch daily as needed (Dizziness ). LORazepam 2021-0 Yes [id number] .5mg Take 1 U nivers 0.5 mg 6-21 tablet by ity of tablet 00:00: mouth (three) Medical times Branch daily as needed (Dizziness ). LORazepam 2021-0 Yes [id number] .5mg Take 1 U nivers 0.5 mg 6-21 tablet by ity of tablet 00:00: mouth 3 (three) Medical times Branch daily as needed (Dizziness ). LORazepam 2021-0 Yes [id number] .5mg Take 1 U nivers 0.5 mg 6-21 tablet by ity of tablet 00:00: mouth (three) Medical times Branch daily as needed (Dizziness ). Miscellaneo 2020- Yes [id number] I10 - U nivers Medical 2-30 Dispense ity o f Supply Kit 00:00: blood [place] 00 pressure Medical cuff (any Branch brand), take BP at home BID Miscellaneo 2020- Yes [id number] I10 - U nivers Medical 2-30 Dispense ity o f Supply Kit 00:00: blood [place] 00 pressure Medical cuff (any Branch brand), take BP at home BID Miscellaneo 2020- Yes [id number] I10 - U [facility] 2-30 Dispense ity o f Supply Kit 00:00: blood [place] 00 pressure Medical cuff (any Branch brand), take BP at home BID Miscellaneo 2020- Yes [id number] I10 - U [facility] 2-30 Dispense ity o f Supply Kit 00:00: blood [place] 00 pressure Medical cuff (any Branch brand), take BP at home BID Miscellaneo 2020- Yes [id number] I10 - U [facility] 2-30 Dispense ity o f Supply Kit 00:00: blood [place] 00 pressure Medical cuff (any Branch brand), take BP at home BID Miscellaneo 2020- Yes [id number] I10 - U [facility] 2-30 Dispense ity o f Supply Kit 00:00: blood [place] 00 pressure Medical cuff (any Branch brand), take BP at home BID Miscellaneo 2020- Yes [id number] I10 - U [facility] 2-30 Dispense ity o f Supply Kit 00:00: blood [place] 00 pressure Medical cuff (any Branch brand), take BP at home BID Miscellaneo 2020- Yes [id number] I10 - U [facility] 2-30 Dispense ity o f Supply Kit 00:00: blood [place] 00 pressure Medical cuff (any Branch brand), take BP at home BID Miscellaneo 2020- Yes [id number] I10 - U [facility] 2-30 Dispense ity o f Supply Kit 00:00: blood [place] 00 pressure Medical cuff (any Branch brand), take BP at home BID Miscellaneo 2020- Yes [id number] I10 - U [facility] 2-30 Dispense ity o f Supply Kit 00:00: blood [place] 00 pressure Medical cuff (any Branch brand), take BP at home BID Miscellaneo 2020-1 Yes [id number] I10 - U [facility]ivers Medical 2-30 Dispense ity o f Supply Kit 00:00: blood [place] 00 pressure Medical cuff (any Branch brand), take BP at home BID Miscellaneo 2020-1 Yes [id number] I10 - U [facility] 2-30 Dispense ity o f Supply Kit 00:00: blood [place] 00 pressure Medical cuff (any Branch brand), take BP at home BID Miscellaneo 2020-1 Yes [id number] I10 - U [facility] 2-30 Dispense ity o f Supply Kit 00:00: blood [place] 00 pressure Medical cuff (any Branch brand), take BP at home BID Miscellaneo 2020-1 Yes [id number] I10 - U [facility] 2-30 Dispense ity o f Supply Kit 00:00: blood [place] 00 pressure Medical cuff (any Branch brand), take BP at home BID Miscellaneo 2020-1 Yes [id number] I10 - U [facility] 2-30 Dispense ity o f Supply Kit 00:00: blood [place] 00 pressure Medical cuff (any Branch brand), take BP at home BID Miscellaneo 2020-1 Yes [id number] I10 - U [facility] 2-30 Dispense ity o f Supply Kit 00:00: blood [place] 00 pressure Medical cuff (any Branch brand), take BP at home BID Miscellaneo 2020-1 Yes [id number] I10 - U [facility] 2-30 Dispense ity o f Supply Kit 00:00: blood [place] 00 pressure Medical cuff (any Branch brand), take BP at home BID Miscellaneo 2020-1 Yes [id number] I10 - U [facility] 2-30 Dispense ity o f Supply Kit 00:00: blood [place] 00 pressure Medical cuff (any Branch brand), take BP at home BID Miscellaneo 2020-1 Yes [id number] I10 - U [facility] 2-30 Dispense ity o f Supply Kit 00:00: blood [place] 00 pressure Medical cuff (any Branch brand), take BP at home BID Miscellaneo 2020-1 Yes [id number] I10 - U [facility] 2-30 Dispense ity o f Supply Kit 00:00: blood [place] 00 pressure Medical cuff (any Branch brand), take BP at home BID Miscellaneo 2020-1 Yes [id number] I10 - U [facility] 2-30 Dispense ity o f Supply Kit 00:00: blood [place] 00 pressure Medical cuff (any Branch brand), take BP at home BID Miscellaneo 2020-1 Yes [id number] I10 - U [facility] 2-30 Dispense ity o f Supply Kit 00:00: blood [place] 00 pressure Medical cuff (any Branch brand), take BP at home BID Miscellaneo 2020- Yes [id number] I10 - U [facility] 2-30 Dispense ity o f Supply Kit 00:00: blood [place] 00 pressure Medical cuff (any Branch brand), take BP at home BID Miscellaneo 2020-1 Yes [id number] I10 - U [facility] 2-30 Dispense ity o f Supply Kit 00:00: blood [place] 00 pressure Medical cuff (any Branch brand), take BP at home BID Miscellaneo 2020-1 Yes [id number] I10 - U [facility] 2-30 Dispense ity o f Supply Kit 00:00: blood [place] 00 pressure Medical cuff (any Branch brand), take BP at home BID Miscellaneo 2020-1 Yes [id number] I10 - U [facility] 2-30 Dispense ity o f Supply Kit 00:00: blood [place] 00 pressure Medical cuff (any Branch brand), take BP at home BID Miscellaneo 2020-1 Yes [id number] I10 - U [facility] 2-30 Dispense ity o f Supply Kit 00:00: blood [place] 00 pressure Medical cuff (any Branch brand), take BP at home BID Miscellaneo 2020-1 Yes [id number] I10 - U [facility] 2-30 Dispense ity o f Supply Kit 00:00: blood [place] 00 pressure Medical cuff (any Branch brand), take BP at home BID Miscellaneo 2020-1 Yes [id number] I10 - U [facility] 2-30 Dispense ity o f Supply Kit 00:00: blood [place] 00 pressure Medical cuff (any Branch brand), take BP at home BID Miscellaneo 2020-1 Yes [id number] I10 - U [facility] 2-30 Dispense ity o f Supply Kit 00:00: blood [place] 00 pressure Medical cuff (any Branch brand), take BP at home BID Miscellaneo 2020- Yes [id number] I10 - U [facility] 2-30 Dispense ity o f Supply Kit 00:00: blood [place] 00 pressure Medical cuff (any Branch brand), take BP at home BID Miscellaneo 2020- Yes [id number] I10 - U [facility] 2-30 Dispense ity o f Supply Kit 00:00: blood [place] 00 pressure Medical cuff (any Branch brand), take BP at home BID Miscellaneo 2020- Yes [id number] I10 - U [facility] 2-30 Dispense ity o f Supply Kit 00:00: blood [place] 00 pressure Medical cuff (any Branch brand), take BP at home BID Miscellaneo 2020- Yes [id number] I10 - U [facility] 2-30 Dispense ity o f Supply Kit 00:00: blood [place] 00 pressure Medical cuff (any Branch brand), take BP at home BID Miscellaneo 2020- Yes [id number] I10 - U [facility] 2-30 Dispense ity o f Supply Kit 00:00: blood [place] 00 pressure Medical cuff (any Branch brand), take BP at home BID Miscellaneo 2020- Yes [id number] I10 - U [facility] 2-30 Dispense ity o f Supply Kit 00:00: blood [place] 00 pressure Medical cuff (any Branch brand), take BP at home BID Miscellaneo 2020- Yes [id number] I10 - U [facility] 2-30 Dispense ity o f Supply Kit 00:00: blood [place] 00 pressure Medical cuff (any Branch brand), take BP at home BID Miscellaneo 2020- Yes [id number] I10 - U [facility] 2-30 Dispense ity o f Supply Kit 00:00: blood [place] 00 pressure Medical cuff (any Branch brand), take BP at home BID Misc 2020- No 700 mL, Memoria Medication 0-02 Soln-IV, l 15:32: IV, Once, first dose 02/14/20 10:32:00 CDT, stop date 02/14/20 10:32:00 CDT [facility] 2019-05 No 700 mL, Memoria Medication 0-02 Soln-IV, l 15:32: IV, Once, first dose 02/14/20 10:32:00 CDT, stop date 02/14/20 10:32:00 CDT fentaNYL 2019-05 No 50 mcg = 1 Mem oria 0-02 mL, l 14:47: Injection, IV, Once, first dose 02/14/20 9:47:00 CDT, stop date 02/14/20 9:47:00 CDT fentaNYL 2019-05 No 50 mcg = 1 Mem oria 0-02 mL, l 14:47: Injection, IV, Once, first dose 02/14/20 9:47:00 CDT, stop date 02/14/20 9:47:00 CDT [facility] 2019-05 No 1,000 mL, Memoria Medication 0-02 Soln-IV, l 13:42: IV, Once, first dose 02/14/20 8:42:00 CDT, stop date 02/14/20 8:42:00 CDT [facility] 2019-05 No 1,000 mL, Memoria Medication 0-02 Soln-IV, l 13:42: IV, Once, first dose 02/14/20 8:42:00 CDT, stop date 02/14/20 8:42:00 CDT Ondansetron 2019-05 No 4 mg = 2 Me moria 0-02 mL, l 13:37: Injection, IV Push, q15min PRN for nausea, order duration: 2 doses, first dose 02/14/20 8:37:00 CDT, stop date Limited # of times Promethazin 2019-05 No 12.5 mg = M emoria e 0-02 0.5 mL, l 13:37: Injection, [place] 00 IM, Once PRN for vomiting, first dose 02/14/20 8:37:00 CDT Labetalol 2019-05 No 5 mg = 1 Brett leeann 0-02 mL, l 13:37: Injection, [place] 00 IV Push, As Indicated PRN for hypertensi on, first dose 02/14/20 8:37:00 CDT, SBP Hold Parameter: less than 110 mmHg, HR Hold Parameter: less than 60 bpm Hydralazine 2019-05 No 10 mg = Mem oria 0-02 0.5 mL, l 13:37: Injection, IV Push, As Indicated PRN for hypertensi on, first dose 02/14/20 8:37:00 CDT, SBP Hold Parameter: less than 110 mmHg Diphenhydra 2019-05 No 25 mg = Mem oria mine 0-02 0.5 mL, l 13:37: Injection, Jean IV Push, Once PRN for itching, first dose 02/14/20 8:37:00 CDT LR 1,000 mL 2019-05 No 1,000 mL, M emoria 0-02 IV, 75 l 13:37: mL/hr, start date 02/14/20 8:37:00 CDT, 2.26, m2 Saline [place] 2019-05 No 10 mL, Brett leeann Flush 0-02 Soln, IV l 13:37: Push, As Indicated PRN for flush, first dose 02/14/20 8:37:00 CDT Bupivacaine 2019-05 No 300 mL, Mem oria 0.25% 300 0-02 Nerve l mL pump 300 13:37: Block, 5 He rmann mL 00 mL/hr, start date 02/14/20 8:37:00 CDT, 2.26, m2 Dilaudid 2019-05 No 0.5 mg = Memor ia 0-02 0.5 mL, l 13:37: Injection, IV Push, q10min PRN for pain severe (7-10), first dose 02/14/20 8:37:00 CDT Demerol HCl 2019-05 No 12.5 mg = M emoria 0-02 0.5 mL, l 13:37: Injection, IV Push, Once PRN for shivers, first dose 02/14/20 8:37:00 CDT Levalbutero 2019-05 No 0.63 mg = M emoria l 0.21 0-02 3 mL, l MG/ML 13:37: Soln, NEB, Zac n Inhalant 00 Once PRN Solution for [Xopenex] wheezing, first dose 02/14/20 8:37:00 CDT Ondansetron 2019-05 No 4 mg = 2 Me moria 0-02 mL, l 13:37: Injection, [place] 00 IV Push, q15min PRN for nausea, order duration: 2 doses, first dose 02/14/20 8:37:00 CDT, stop date Limited # of times Promethazin 2019-05 No 12.5 mg = M emoria e 0-02 0.5 mL, l 13:37: Injection, Jean 00 IM, Once PRN for vomiting, first dose 02/14/20 8:37:00 CDT Labetalol 2019-05 No 5 mg = 1 Brett leeann 0-02 mL, l 13:37: Injection, [place] 00 IV Push, As Indicated PRN for hypertensi on, first dose 02/14/20 8:37:00 CDT, SBP Hold Parameter: less than 110 mmHg, HR Hold Parameter: less than 60 bpm Hydralazine 2019-05 No 10 mg = Mem oria 0-02 0.5 mL, l 13:37: Injection, [place] 00 IV Push, As Indicated PRN for hypertensi on, first dose 02/14/20 8:37:00 CDT, SBP Hold Parameter: less than 110 mmHg Diphenhydra 2019-05 No 25 mg = Mem oria mine 0-02 0.5 mL, l 13:37: Injection, [place] 00 IV Push, Once PRN for itching, first dose 02/14/20 8:37:00 CDT LR 1,000 mL 2019-05 No 1,000 mL, M emoria 0-02 IV, 75 l 13:37: mL/hr, start date 02/14/20 8:37:00 CDT, 2.26, m2 [facility] [place] 2019-05 No 10 mL, Brett leeann Flush 0-02 Soln, IV l 13:37: Push, As Indicated PRN for flush, first dose 02/14/20 8:37:00 CDT Bupivacaine 2019-05 No 300 mL, Mem oria 0.25% 300 0-02 Nerve l mL pump 300 13:37: Block, 5 He rmann mL 00 mL/hr, start date 02/14/20 8:37:00 CDT, 2.26, m2 Dilaudid 2019-05 No 0.5 mg = Memor ia 0-02 0.5 mL, l 13:37: Injection, Jean 00 IV Push, q10min PRN for pain severe (7-10), first dose 02/14/20 8:37:00 CDT Demerol HCl 2019-05 No 12.5 mg = Mason emoria 0-02 0.5 mL, l 13:37: Injection, [place] 00 IV Push, Once PRN for shivers, first dose 02/14/20 8:37:00 CDT Levalbutero 2019-05 No 0.63 mg = Mason emoria l 0.21 0-02 3 mL, l MG/ML 13:37: Soln, NEB, Zac n Inhalant 00 Once PRN Solution for [Xopenex] wheezing, first dose 02/14/20 8:37:00 CDT ondansetron 2019-05 No 4 mg = 2 Me moria 0-02 mL, l 13:35: Injection, [place] 00 IV, Once, first dose 02/14/20 8:35:00 CDT, stop date 02/14/20 8:35:00 CDT dexamethaso 2019-05 No 8 mg = 2 Me moria ne 0-02 mL, l 13:35: Injection, [place] 00 IV, Once, first dose 02/14/20 8:35:00 CDT, stop date 02/14/20 8:35:00 CDT ketorolac 2019-05 No 30 mg = 1 Mem oria 0-02 mL, l 13:35: Injection, [place] 00 IV, Once, first dose 02/14/20 8:35:00 CDT, stop date 02/14/20 8:35:00 CDT ceFAZolin 2019-05 No 2 gm, Memoria 0-02 Soln-IV, l 13:35: IV [place] Piggyback, Once, first dose 02/14/20 8:35:00 CDT, stop date 02/14/20 8:35:00 CDT ondansetron 2019-05 No 4 mg = 2 Me moria 0-02 mL, l 13:35: Injection, Jean 00 IV, Once, first dose 02/14/20 8:35:00 CDT, stop date 02/14/20 8:35:00 CDT dexamethaso 2019- No 8 mg = 2 Me moria ne 0-02 mL, l 13:35: Injection, IV, Once, first dose 02/14/20 8:35:00 CDT, stop date 02/14/20 8:35:00 CDT ketorolac 2019- No 30 mg = 1 Mem oria 0-02 mL, l 13:35: Injection, IV, Once, first dose 02/14/20 8:35:00 CDT, stop date 02/14/20 8:35:00 CDT ceFAZolin 2019- No 2 gm, Memoria 0-02 Soln-IV, l 13:35: IV Piggyback, Once, first dose 02/14/20 8:35:00 CDT, stop date 02/14/20 8:35:00 CDT fentaNYL 2019-05 No 100 mcg = Brett leeann 0-02 2 mL, l 13:16: Injection, IV, Once, first dose 02/14/20 8:16:00 CDT, stop date 02/14/20 8:16:00 CDT lidocaine 2019- No 60 mg = 3 Mem oria 0-02 mL, l 13:16: Injection, IV, Once, first dose 02/14/20 8:16:00 CDT, stop date 02/14/20 8:16:00 CDT propofol 2019- No 150 mg = Memor ia 0-02 15 mL, l 13:16: Emulsion, IV, Once, first dose 02/14/20 8:16:00 CDT, stop date 02/14/20 8:16:00 CDT rocuronium 2019- No 5 mg = 0.5 M emoria 0-02 mL, l 13:16: Injection, IV, Once, first dose 02/14/20 8:16:00 CDT, stop date 02/14/20 8:16:00 CDT succinylcho 2019- No 120 mg = 6 Memoria line 0-02 mL, l 13:16: Injection, Jean 00 IV, Once, first dose 02/14/20 8:16:00 CDT, stop date 02/14/20 8:16:00 CDT fentaNYL 2019-05 No 100 mcg = Brett leeann 0-02 2 mL, l 13:16: Injection, [place] 00 IV, Once, first dose 02/14/20 8:16:00 CDT, stop date 02/14/20 8:16:00 CDT lidocaine 2019-05 No 60 mg = 3 Mem oria 0-02 mL, l 13:16: Injection, [place] 00 IV, Once, first dose 02/14/20 8:16:00 CDT, stop date 02/14/20 8:16:00 CDT propofol 2019-05 No 150 mg = Memor ia 0-02 15 mL, l 13:16: Emulsion, [place] 00 IV, Once, first dose 02/14/20 8:16:00 CDT, stop date 02/14/20 8:16:00 CDT rocuronium 2019-05 No 5 mg = 0.5 M emoria 0-02 mL, l 13:16: Injection, [place] 00 IV, Once, first dose 02/14/20 8:16:00 CDT, stop date 02/14/20 8:16:00 CDT succinylcho 2019-05 No 120 mg = 6 Memoria line 0-02 mL, l 13:16: Injection, [place] 00 IV, Once, first dose 02/14/20 8:16:00 CDT, stop date 02/14/20 8:16:00 CDT midazolam 2019-05 No 1 mg = 1 Brett leeann 0-02 mL, l 13:03: Injection, [place] 00 IV, Once, first dose 02/14/20 8:03:00 CDT, stop date 02/14/20 8:03:00 CDT fentaNYL 2019-05 No 50 mcg = 1 Mem oria 0-02 mL, l 13:03: Injection, Jean 00 IV, Once, first dose 02/14/20 8:03:00 CDT, stop date 02/14/20 8:03:00 CDT midazolam 2019-05 No 1 mg = 1 Brett leeann 0-02 mL, l 13:03: Injection, [place] 00 IV, Once, first dose 02/14/20 8:03:00 CDT, stop date 02/14/20 8:03:00 CDT fentaNYL 2019-05 No 50 mcg = 1 Mem oria 0-02 mL, l 13:03: Injection, Jean 00 IV, Once, first dose 02/14/20 8:03:00 CDT, stop date 02/14/20 8:03:00 CDT midazolam 2019-05 No 1 mg = 1 Brett leeann 0-02 mL, l 12:43: Injection, Jean 00 IV, Once, first dose 02/14/20 7:43:00 CDT, stop date 02/14/20 7:43:00 CDT fentaNYL 2019-05 No 50 mcg = 1 Mem oria 0-02 mL, l 12:43: Injection, Jean 00 IV, Once, first dose 02/14/20 7:43:00 CDT, stop date 02/14/20 7:43:00 CDT midazolam 2019-05 No 1 mg = 1 Brett leeann 0-02 mL, l 12:43: Injection, Jean 00 IV, Once, first dose 02/14/20 7:43:00 CDT, stop date 02/14/20 7:43:00 CDT fentaNYL 2019-05 No 50 mcg = 1 Mem oria 0-02 mL, l 12:43: Injection, Jean 00 IV, Once, first dose 02/14/20 7:43:00 CDT, stop date 02/14/20 7:43:00 CDT Flonase 2019-05 Yes 1 sprays, Memor ia 0-02 Nasal, l 12:01: BID, 0 [place] 00 Refill(s) Flonase 2019-05 Yes 1 sprays, Memor ia 0-02 Nasal, l 12:01: BID, 0 [place] 00 Refill(s) Cefazolin 2019-05 No 2 gm, Memoria 0-02 Soln-IV, l 12:00: IV Jean 00 Piggyback, Once, infuse over 30 minutes, first dose 02/14/20 7:00:00 CDT, stop date 02/14/20 7:00:00 CDT, patient weight 50-120 kg, Prophylaxi s Cefazolin 2019-05 No 2 gm, Memoria 0-02 Soln-IV, l 12:00: IV Jean 00 Piggyback, Once, infuse over 30 minutes, first dose 02/14/20 7:00:00 CDT, stop date 02/14/20 7:00:00 CDT, patient weight 50-120 kg, Prophylaxi s LR 1,000 mL 2019-05 No 1,000 mL, M emoria 0-02 IV, 30 l 11:45: mL/hr, start date 02/14/20 6:45:00 CDT, 2.26, m2 Lidocaine 2019- No 0.2 mL, Memor ia 2% 0.2 mL 0-02 Injection, l IV Start 11:45: [facility] [[facility]] 00 us, Once PRN for other (see comment), first dose 02/14/20 6:45:00 CDT LR 1,000 mL 2019-05 No 1,000 mL, M emoria 0-02 IV, 30 l 11:45: mL/hr, start date 02/14/20 6:45:00 CDT, 2.26, m2 Lidocaine 2019-05 No 0.2 mL, Memor ia 2% 0.2 mL 0-02 Injection, l IV Start 11:45: [facility] [[facility]] 00 us, Once PRN for other (see comment), first dose 02/14/20 6:45:00 CDT Probiotic 2020-0 Yes Oral, Memoria Formula 9-25 Daily, 0 l 14:44: Refill(s), supplement Probiotic 2020-0 Yes Oral, Memoria Formula 9-25 Daily, 0 l 14:44: Refill(s), supplement Zinc 2020-0 Yes mg, Oral, Memoria 9-25 Daily, 0 l 14:43: Refill(s), supplement cyclobenzap 2020-0 Yes Oral, 0 Mem oria rine 9-25 Refill(s), l 14:43: fibromyalg Jean ia tramadol 2020-0 Yes 50 mg = 1 Brett leeann hydrochlori 9-25 tabs, l de 50 MG 14:43: Oral, Oral Tablet 00 q6hr, 0 Refill(s), pain Vitamin D3 2020-0 Yes 0 Memoria 9-25 Refill(s), l 14:43: supplement Vitamin C 2020-0 Yes Daily, 0 Brett leeann 9-25 Refill(s), l 14:43: supplement Zinc 2020-0 Yes mg, Oral, Memoria 9-25 Daily, 0 l 14:43: Refill(s), supplement cyclobenzap 2020-0 Yes Oral, 0 Mem oria rine 9-25 Refill(s), l 14:43: fibromyalg ia tramadol 2020-0 Yes 50 mg = 1 Brett leeann hydrochlori 9-25 tabs, l de 50 MG 14:43: Oral, Jean Oral Tablet 00 q6hr, 0 Refill(s), pain Vitamin D3 2020-0 Yes 0 Memoria 9-25 Refill(s), l 14:43: supplement Vitamin C 2020-0 Yes Daily, 0 Brett leeann 9-25 Refill(s), l 14:43: supplement Trazodone 2020-0 Yes 50 mg = 1 Mem oria Hydrochlori 9-25 tabs, l de 50 MG 14:42: Oral, BID, Her guerra Oral Tablet 00 0 Refill(s), as needed for severe pain [place] 2020-0 Yes 600 mg, Memoria 9-25 Oral, l 14:42: q4hr, 0 [place] 00 Refill(s), foot pain Ipratropium 2020-0 Yes 500 mcg = M emoria [place] 0.2 9-25 2.5 mL, l MG/ML 14:42: MDI, QID, [place] Inhalant 00 0 Solution Refill(s), asthma Trazodone 2020-0 Yes 50 mg = 1 Mem oria Hydrochlori 9-25 tabs, l de 50 MG 14:42: Oral, BID, Her guerra Oral Tablet 00 0 Refill(s), as needed for severe pain [place] 2020-0 Yes 600 mg, Memoria 9-25 Oral, l 14:42: q4hr, 0 Jean 00 Refill(s), foot pain Ipratropium 2020-0 Yes 500 mcg = M emoria [place] 0.2 9-25 2.5 mL, l MG/ML 14:42: MDI, QID, Jean Inhalant 00 0 Solution Refill(s), asthma levocetiriz 2020-0 Yes 5 mg = 1 Me moria ine 5 mg 9-25 tabs, l oral tablet 14:41: Oral, qPM, [place] 00 0 Refill(s), allergy sertraline 2020-0 Yes 25 mg = 1 Me moria 25 mg oral 9-25 tabs, l tablet 14:41: Oral, [place] 00 Daily, 0 Refill(s), anxiety levocetiriz 2020-0 Yes 5 mg = 1 Me moria ine 5 mg 9-25 tabs, l oral tablet 14:41: Oral, qPM, [place] 00 0 Refill(s), allergy sertraline 2020-0 Yes 25 mg = 1 Me moria 25 mg oral 9-25 tabs, l tablet 14:41: Oral, [place] 00 Daily, 0 Refill(s), anxiety Nebulizer & 2019- Yes [id number] Use as Univers Compressor 0-18 directed ity o f For Neb 00:00: Medical Branch Nebulizer & 2018- Yes [id number] Use as Univers Compressor 0-18 directed ity o f For Neb 00:00: [facility] Nebulizer & 2018- Yes [id number] Use as Univers Compressor 0-18 directed ity o f For Neb 00:00: [facility] Nebulizer & 2018- Yes [id number] Use as Univers Compressor 0-18 directed ity o f For Neb 00:00: [facility] Nebulizer & 2018- Yes [id number] Use as Univers Compressor 0-18 directed ity o f For Neb 00:00: [facility] Nebulizer & 2018- Yes [id number] Use as Univers Compressor 0-18 directed ity o f For Neb 00:00: [facility] Nebulizer & 2019- Yes [id number] Use as Univers Compressor 0-18 directed ity o f For Neb 00:00: [facility] Nebulizer & 2019- Yes [id number] Use as Univers Compressor 0-18 directed ity o f For Neb 00:00: [facility] Nebulizer & 2019- Yes [id number] Use as Univers Compressor 0-18 directed ity o f For Neb 00:00: [facility] Nebulizer & 2019- Yes [id number] Use as Univers Compressor 0-18 directed ity o f For Neb 00:00: [facility] Nebulizer & 2019-1 Yes [id number] Use as Univers Compressor 0-18 directed ity o f For Neb 00:00: [place] [facility] Nebulizer & 2019-1 Yes [id number] Use as Univers Compressor 0-18 directed ity o f For Neb 00:00: [place] [facility] Nebulizer & 2019-1 Yes [id number] Use as Univers Compressor 0-18 directed ity o f For Neb 00:00: [place] [facility] Nebulizer & 2019-1 Yes [id number] Use as Univers Compressor 0-18 directed ity o f For Neb 00:00: [place] [facility] Nebulizer & 2019-1 Yes [id number] Use as Univers Compressor 0-18 directed ity o f For Neb 00:00: [place] [facility] Nebulizer & 2019- Yes [id number] Use as Univers Compressor 0-18 directed ity o f For Neb 00:00: [place] [facility] Nebulizer & 2019- Yes [id number] Use as Univers Compressor 0-18 directed ity o f For Neb 00:00: [place] [facility] Nebulizer & 2019- Yes [id number] Use as Univers Compressor 0-18 directed ity o f For Neb 00:00: [place] [facility] Nebulizer & 2019- Yes [id number] Use as Univers Compressor 0-18 directed ity o f For Neb 00:00: [place] [facility] Nebulizer & 2019- Yes [id number] Use as Univers Compressor 0-18 directed ity o f For Neb 00:00: [place] [facility] Nebulizer & 2019- Yes [id number] Use as Univers Compressor 0-18 directed ity o f For Neb 00:00: [place] [facility] Nebulizer & 2019-1 Yes [id number] Use as Univers Compressor 0-18 directed ity o f For Neb 00:00: [place] [facility] Nebulizer & 2019- Yes [id number] Use as Univers Compressor 0-18 directed ity o f For Neb 00:00: [place] [facility] Nebulizer & 2019- Yes [id number] Use as Univers Compressor 0-18 directed ity o f For Neb 00:00: [place] [facility] Nebulizer & 2019- Yes [id number] Use as Univers Compressor 0-18 directed ity o f For Neb 00:00: [place] [facility] Nebulizer & 2019- Yes [id number] Use as Univers Compressor 0-18 directed ity o f For Neb 00:00: [facility] Nebulizer & 2019- Yes [id number] Use as Univers Compressor 0-18 directed ity o f For Neb 00:00: [facility] Nebulizer & 2019- Yes [id number] Use as Univers Compressor 0-18 directed ity o f For Neb 00:00: [facility] Nebulizer & 2019- Yes [id number] Use as Univers Compressor 0-18 directed ity o f For Neb 00:00: [facility] Nebulizer & 2019- Yes [id number] Use as Univers Compressor 0-18 directed ity o f For Neb 00:00: [facility] Nebulizer & 2019- Yes [id number] Use as Univers Compressor 0-18 directed ity o f For Neb 00:00: [facility] Nebulizer & 2019- Yes [id number] Use as Univers Compressor 0-18 directed ity o f For Neb 00:00: [place] [facility] Nebulizer & 2019- Yes [id number] Use as Univers Compressor 0-18 directed ity o f For Neb 00:00: [facility] Nebulizer & 2019- Yes [id number] Use as Univers Compressor 0-18 directed ity o f For Neb 00:00: [place] [facility] Nebulizer & 2019- Yes [id number] Use as Univers Compressor 0-18 directed ity o f For Neb 00:00: [facility] Nebulizer & 2019- Yes [id number] Use as Univers Compressor 0-18 directed ity o f For Neb 00:00: [place] [facility] Nebulizer & 2019- Yes [id number] Use as Univers Compressor 0-18 directed ity o f For Neb 00:00: [place] [facility] Nebulizer & 2019- Yes [id number] Use as Univers Compressor 0-18 directed ity o f For Neb 00:00: [place] [facility] Immunizations Ordered Filled Immunization Date Status Comments Sour e Immunization Name Name Influenza Virus 2019-03-01 Completed Universit y of Vaccine Quad .5 mL 00:00:00 [facility] 6+ MO Branch Pneumococcal 13 2019-03-01 Completed Universit y of Conjugate, PCV13 00:00:00 [facility] dical (Prevnar 13) Branch TDAP (ADACEL) 2019-03-01 Completed University of VACCINE 00:00:00 [facility] Influenza Virus 2019-03-01 Completed Universit y of Vaccine Quad .5 mL 00:00:00 [place] [facility] 6[facility] Pneumococcal 13 2019-03-01 Completed Universit y of Conjugate, PCV13 00:00:00 [facility] dical (Prevnar 13) Branch TDAP (ADACEL) 2019-03-01 Completed University of VACCINE 00:00:00 [facility] Influenza Virus 2019-03-01 Completed Universit y of Vaccine Quad .5 mL 00:00:00 [place] [facility] 6[facility] Pneumococcal 13 2019-03-01 Completed Universit y of Conjugate, PCV13 00:00:00 [facility] dical (Prevnar 13) Branch TDAP (ADACEL) 2019-03-01 Completed University of VACCINE 00:00:00 [facility] Influenza Virus 2019-03-01 Completed Universit y of Vaccine Quad .5 mL 00:00:00 [facility] 6+ MO Branch Pneumococcal 13 2019-03-01 Completed Universit y of Conjugate, PCV13 00:00:00 [facility] dical (Prevnar 13) Branch TDAP (ADACEL) 2019-03-01 Completed University of VACCINE 00:00:00 [facility] Influenza Virus 2019-03-01 Completed Universit y of Vaccine Quad .5 mL 00:00:00 [facility] 6+ MO Branch Pneumococcal 13 2019-03-01 Completed Universit y of Conjugate, PCV13 00:00:00 [facility] dical (Prevnar 13) Branch TDAP (ADACEL) 2019-03-01 Completed University of VACCINE 00:00:00 [facility] Influenza Virus 2019-03-01 Completed Universit y of Vaccine Quad .5 mL 00:00:00 [place] [facility] 6[facility] MO [facility] Pneumococcal 13 2019-03-01 Completed Universit y of Conjugate, PCV13 00:00:00 [facility] dical (Prevnar 13) Branch TDAP (ADACEL) 2019-03-01 Completed University of VACCINE 00:00:00 [facility] Influenza Virus 2019-03-01 Completed Universit y of Vaccine Quad .5 mL 00:00:00 [place] [facility] 6[facility] MO [facility] Pneumococcal 13 2019-03-01 Completed Universit y of Conjugate, PCV13 00:00:00 [facility] dical (Prevnar 13) Branch TDAP (ADACEL) 2019-03-01 Completed University of VACCINE 00:00:00 [facility] Influenza Virus 2019-03-01 Completed Universit y of Vaccine Quad .5 mL 00:00:00 [facility] 6+ MO Branch Pneumococcal 13 2019-03-01 Completed Universit y of Conjugate, PCV13 00:00:00 [facility] dical (Prevnar 13) Branch TDAP (ADACEL) 2019-03-01 Completed University of VACCINE 00:00:00 [facility] Influenza Virus 2019-03-01 Completed Universit y of Vaccine Quad .5 mL 00:00:00 [facility] 6+ MO Branch Pneumococcal 13 2019-03-01 Completed Universit y of Conjugate, PCV13 00:00:00 [facility] dical (Prevnar 13) Branch TDAP (ADACEL) 2019-03-01 Completed University of VACCINE 00:00:00 [facility] Influenza Virus 2019-03-01 Completed Universit y of Vaccine Quad .5 mL 00:00:00 [facility] 6+ MO Branch Pneumococcal 13 2019-03-01 Completed Universit y of Conjugate, PCV13 00:00:00 [facility] dical (Prevnar 13) Branch TDAP (ADACEL) 2019-03-01 Completed University of VACCINE 00:00:00 [facility] Influenza Virus 2019-03-01 Completed Universit y of Vaccine Quad .5 mL 00:00:00 [facility] 6+ MO Branch Pneumococcal 13 2019-03-01 Completed Universit y of Conjugate, PCV13 00:00:00 [facility] dical (Prevnar 13) Branch TDAP (ADACEL) 2019-03-01 Completed University of VACCINE 00:00:00 [facility] Influenza Virus 2019-03-01 Completed Universit y of Vaccine Quad .5 mL 00:00:00 [facility] IM 6+ MO Branch Pneumococcal 13 2019-03-01 Completed Universit y of Conjugate, PCV13 00:00:00 [facility] dical (Prevnar 13) Branch TDAP (ADACEL) 2019-03-01 Completed University of VACCINE 00:00:00 [facility] Influenza Virus 2019-03-01 Completed Universit y of Vaccine Quad .5 mL 00:00:00 [place] [facility] 6[facility] Pneumococcal 13 2019-03-01 Completed Universit y of Conjugate, PCV13 00:00:00 [facility] dical (Prevnar 13) Branch TDAP (ADACEL) 2019-03-01 Completed University of VACCINE 00:00:00 [facility] Influenza Virus 2019-03-01 Completed Universit y of Vaccine Quad .5 mL 00:00:00 [place] [facility] 6[facility] MO [facility] Pneumococcal 13 2019-03-01 Completed Universit y of Conjugate, PCV13 00:00:00 [facility] dical (Prevnar 13) Branch TDAP (ADACEL) 2019-03-01 Completed University of VACCINE 00:00:00 [facility] Influenza Virus 2019-03-01 Completed Universit y of Vaccine Quad .5 mL 00:00:00 [facility] 6+ MO Branch Pneumococcal 13 2019-03-01 Completed Universit y of Conjugate, PCV13 00:00:00 [facility] dical (Prevnar 13) Branch TDAP (ADACEL) 2019-03-01 Completed University of VACCINE 00:00:00 [facility] Influenza Virus 2019-03-01 Completed Universit y of Vaccine Quad .5 mL 00:00:00 [facility] 6+ MO Branch Pneumococcal 13 2019-03-01 Completed Universit y of Conjugate, PCV13 00:00:00 [facility] dical (Prevnar 13) Branch TDAP (ADACEL) 2019-03-01 Completed University of VACCINE 00:00:00 [facility] Influenza Virus 2019-03-01 Completed Universit y of Vaccine Quad .5 mL 00:00:00 [facility] 6+ MO Branch Pneumococcal 13 2019-03-01 Completed Universit y of Conjugate, PCV13 00:00:00 [facility] dical (Prevnar 13) Branch TDAP (ADACEL) 2019-03-01 Completed University of VACCINE 00:00:00 [facility] Influenza Virus 2019-03-01 Completed Universit y of Vaccine Quad .5 mL 00:00:00 [facility] 6+ MO Branch Pneumococcal 13 2019-03-01 Completed Universit y of Conjugate, PCV13 00:00:00 [facility] dical (Prevnar 13) Branch TDAP (ADACEL) 2019-03-01 Completed University of VACCINE 00:00:00 [facility] Influenza Virus 2019-03-01 Completed Universit y of Vaccine Quad .5 mL 00:00:00 [place] [facility] 6[facility] MO Branch Pneumococcal 13 2019-03-01 Completed Universit y of Conjugate, PCV13 00:00:00 [facility] dical (Prevnar 13) Branch TDAP (ADACEL) 2019-03-01 Completed University of VACCINE 00:00:00 [facility] Influenza Virus 2019-03-01 Completed Universit y of Vaccine Quad .5 mL 00:00:00 [place] [facility] 6[facility] Pneumococcal 13 2019-03-01 Completed Universit y of Conjugate, PCV13 00:00:00 [facility] dical (Prevnar 13) Branch TDAP (ADACEL) 2019-03-01 Completed University of VACCINE 00:00:00 [facility] Influenza Virus 2019-03-01 Completed Universit y of Vaccine Quad .5 mL 00:00:00 [place] [facility] 6[facility] MO [facility] Pneumococcal 13 2019-03-01 Completed Universit y of Conjugate, PCV13 00:00:00 [facility] dical (Prevnar 13) Branch TDAP (ADACEL) 2019-03-01 Completed University of VACCINE 00:00:00 [facility] Influenza Virus 2019-03-01 Completed Universit y of Vaccine Quad .5 mL 00:00:00 [facility] 6+ MO Branch Pneumococcal 13 2019-03-01 Completed Universit y of Conjugate, PCV13 00:00:00 [facility] dical (Prevnar 13) Branch TDAP (ADACEL) 2019-03-01 Completed University of VACCINE 00:00:00 [facility] Influenza Virus 2019-03-01 Completed Universit y of Vaccine Quad .5 mL 00:00:00 [facility] 6+ MO Branch Pneumococcal 13 2019-03-01 Completed Universit y of Conjugate, PCV13 00:00:00 [facility] dical (Prevnar 13) Branch TDAP (ADACEL) 2019-03-01 Completed University of VACCINE 00:00:00 [facility] Influenza Virus 2019-03-01 Completed Universit y of Vaccine Quad .5 mL 00:00:00 [place] [facility] 6[facility] MO [facility] Pneumococcal 13 2019-03-01 Completed Universit y of Conjugate, PCV13 00:00:00 [facility] dical (Prevnar 13) Branch TDAP (ADACEL) 2019-03-01 Completed University of VACCINE 00:00:00 [facility] Influenza Virus 2019-03-01 Completed Universit y of Vaccine Quad .5 mL 00:00:00 [place] [facility] 6[facility] MO [facility] Pneumococcal 13 2019-03-01 Completed Universit y of Conjugate, PCV13 00:00:00 [facility] dical (Prevnar 13) Branch TDAP (ADACEL) 2019-03-01 Completed University of VACCINE 00:00:00 [facility] Influenza Virus 2019-03-01 Completed Universit y of Vaccine Quad .5 mL 00:00:00 [place] [facility] 6[facility] MO [facility] Pneumococcal 13 2019-03-01 Completed Universit y of Conjugate, PCV13 00:00:00 [facility] dical (Prevnar 13) Branch TDAP (ADACEL) 2019-03-01 Completed University of VACCINE 00:00:00 [facility] Influenza Virus 2019-03-01 Completed Universit y of Vaccine Quad .5 mL 00:00:00 [facility] IM 6+ MO Branch Pneumococcal 13 2019-03-01 Completed Universit y of Conjugate, PCV13 00:00:00 [facility] dical (Prevnar 13) Branch TDAP (ADACEL) 2019-03-01 Completed University of VACCINE 00:00:00 [facility] Influenza Virus 2019-03-01 Completed Universit y of Vaccine Quad .5 mL 00:00:00 [facility] 6+ MO Branch Pneumococcal 13 2019-03-01 Completed Universit y of Conjugate, PCV13 00:00:00 [facility] dical (Prevnar 13) Branch TDAP (ADACEL) 2019-03-01 Completed University of VACCINE 00:00:00 [facility] Influenza Virus 2019-03-01 Completed Universit y of Vaccine Quad .5 mL 00:00:00 [facility] 6+ MO Branch Pneumococcal 13 2019-03-01 Completed Universit y of Conjugate, PCV13 00:00:00 [facility] dical (Prevnar 13) Branch TDAP (ADACEL) 2019-03-01 Completed University of VACCINE 00:00:00 [facility] Influenza Virus 2019-03-01 Completed Universit y of Vaccine Quad .5 mL 00:00:00 [facility] IM 6+ MO Branch Pneumococcal 13 2019-03-01 Completed Universit y of Conjugate, PCV13 00:00:00 [facility] dical (Prevnar 13) Branch TDAP (ADACEL) 2019-03-01 Completed University of VACCINE 00:00:00 [facility] Influenza Virus 2019-03-01 Completed Universit y of Vaccine Quad .5 mL 00:00:00 [place] [facility] 6[facility] Pneumococcal 13 2019-03-01 Completed Universit y of Conjugate, PCV13 00:00:00 [facility] dical (Prevnar 13) Branch TDAP (ADACEL) 2019-03-01 Completed University of VACCINE 00:00:00 [facility] Influenza Virus 2019-03-01 Completed Universit y of Vaccine Quad .5 mL 00:00:00 [place] [facility] 6[facility] MO [facility] Pneumococcal 13 2019-03-01 Completed Universit y of Conjugate, PCV13 00:00:00 [facility] dical (Prevnar 13) Branch TDAP (ADACEL) 2019-03-01 Completed University of VACCINE 00:00:00 [facility] Influenza Virus 2019-03-01 Completed Universit y of Vaccine Quad .5 mL 00:00:00 [facility] IM 6+ MO Branch Pneumococcal 13 2019-03-01 Completed Universit y of Conjugate, PCV13 00:00:00 [facility] dical (Prevnar 13) Branch TDAP (ADACEL) 2019-03-01 Completed University of VACCINE 00:00:00 [facility] Influenza Virus 2019-03-01 Completed Universit y of Vaccine Quad .5 mL 00:00:00 [facility] 6+ MO Branch Pneumococcal 13 2019-03-01 Completed Universit y of Conjugate, PCV13 00:00:00 [facility] dical (Prevnar 13) Branch TDAP (ADACEL) 2019-03-01 Completed University of VACCINE 00:00:00 [facility] Influenza Virus 2019-03-01 Completed Universit y of Vaccine Quad .5 mL 00:00:00 [facility] 6+ MO Branch Pneumococcal 13 2019-03-01 Completed Universit y of Conjugate, PCV13 00:00:00 [facility] dical (Prevnar 13) Branch TDAP (ADACEL) 2019-03-01 Completed University of VACCINE 00:00:00 [facility] Influenza Virus 2019-03-01 Completed Universit y of Vaccine Quad .5 mL 00:00:00 [facility] IM 6+ MO Branch Pneumococcal 13 2019-03-01 Completed Universit y of Conjugate, PCV13 00:00:00 [facility] dical (Prevnar 13) Branch TDAP (ADACEL) 2019-03-01 Completed University of VACCINE 00:00:00 [facility] Influenza Virus 2019-03-01 Completed Universit y of Vaccine Quad .5 mL 00:00:00 [place] [facility] 6[facility] Pneumococcal 13 2019-03-01 Completed Universit y of Conjugate, PCV13 00:00:00 [facility] dical (Prevnar 13) Branch TDAP (ADACEL) 2019-03-01 Completed University of VACCINE 00:00:00 [facility] Influenza Virus 2019-03-01 Completed Universit y of Vaccine Quad .5 mL 00:00:00 [facility] IM 6+ MO Branch Pneumococcal 13 2019-03-01 Completed Universit y of Conjugate, PCV13 00:00:00 [facility] dical (Prevnar 13) Branch TDAP (ADACEL) 2019-03-01 Completed University of VACCINE 00:00:00 [facility] Vital Signs Vital Name Observation Time Observation Value Comments Source Heart rate 2022-03-08 18:35:00 102 /min Universi ty of [facility] Respiratory rate 2022-03-08 18:35:00 26 /min Univ ersity of [facility] Oxygen saturation in 2022-03-08 18:35:00 93 /min University of Arterial blood by [place] [employer] [facility] Pulse oximetry Branch Systolic blood 2022-03-08 18:32:00 110 mm[Hg] Univer sity of pressure [facility] Diastolic blood 2022-03-08 18:32:00 61 mm[Hg] Unive rsity of pressure [facility] Body temperature 2022-03-08 11:57:00 36.33 Gena Univ ersity of [facility] Body height 2022-02-28 16:50:00 [facility] Body weight 2022-02-28 16:50:00 122.1 [facility] BMI 2022-02-28 16:50:00 36.50 kg/m2 Universi ty [facility] Heart rate 2022-03-08 16:50:00 105 /min [facility] Respiratory rate 2022-03-08 16:50:00 14 /min Univ ersity of [facility] Oxygen saturation in 2022-03-08 16:50:00 96 /min University of Arterial blood by [place] [employer] [facility] Pulse oximetry Branch Systolic blood 2022-03-08 16:46:00 124 mm[Hg] Univer sity of pressure [facility] Diastolic blood 2022-03-08 16:46:00 67 mm[Hg] Unive rsity of pressure [facility] Body temperature 2022-03-08 11:57:00 36.33 Gena [facility] Body height 2022-02-28 16:50:00 182.9 cm [facility] Body weight 2022-02-28 16:50:00 122.1 kg [facility] [place] [facility] BMI 2022-02-28 16:50:00 36.50 kg/m2 Universi ty [facility] Respiratory rate 2022-03-08 16:21:00 28 /min Univ ersity of [facility] Systolic blood 2022-03-01 21:50:00 120 mm[Hg] Univer sity of pressure [facility] Diastolic blood 2022-03-01 21:50:00 82 mm[Hg] Unive rsity of [facility] Heart rate 2022-03-01 21:50:00 101 /min [facility] Body temperature 2022-03-01 21:50:00 36.72 Gena [facility] Respiratory rate 2022-03-01 21:50:00 20 /min [facility] Body height 2022-03-01 21:50:00 182.9 cm [facility] Body weight 2022-03-01 21:50:00 121.564 kg [facility] [place] [facility] BMI 2022-03-01 21:50:00 36.35 kg/m2 Universi ty of [facility] Oxygen saturation in 2022-03-01 21:50:00 93 /min University of Arterial blood by [facility] Pulse oximetry Branch Systolic blood 2022-03-01 21:14:00 120 mm[Hg] Univer sity of pressure [facility] Diastolic blood 2022-03-01 21:14:00 82 mm[Hg] Unive rsity of pressure [facility] Heart rate 2022-03-01 21:14:00 101 /min [facility] Body temperature 2022-03-01 21:14:00 36.72 Gena Univ ersity of [facility] Respiratory rate 2022-03-01 21:14:00 20 /min [facility] [place] [facility] Body height 2022-03-01 21:14:00 182.9 cm [facility] Body weight 2022-03-01 21:14:00 121.7 kg [facility] BMI 2022-03-01 21:14:00 36.39 kg/m2 [facility] Oxygen saturation in 2022-03-01 21:14:00 93 /min University of Arterial blood by [facility] Pulse oximetry Branch Systolic blood 2022-02-22 21:01:00 110 mm[Hg] Univer [facility]ity of pressure [facility] Diastolic blood 2022-02-22 21:01:00 76 mm[Hg] Unive rsity of pressure [facility] Heart rate 2022-02-22 21:01:00 88 /min [facility] Respiratory rate 2022-02-22 21:01:00 18 /min [facility] [place] [facility] Body height 2022-02-22 21:01:00 182.9 cm [facility] Body weight 2022-02-22 21:01:00 122.108 kg [facility] [place] [facility] BMI 2022-02-22 21:01:00 36.51 kg/m2 [facility] Oxygen saturation in 2022-02-22 21:01:00 94 /min University of Arterial blood by [facility] Pulse oximetry Branch Body temperature 2022-02-14 16:19:00 36.22 Gena [facility] [place] [facility] Body height 2022-02-14 16:19:00 182.9 cm [facility] Body weight 2022-02-14 16:19:00 121.791 kg [facility] BMI 2022-02-14 16:19:00 36.42 kg/m2 [facility] Systolic blood 2022-01-29 16:56:00 145 mm[Hg] Univer [facility]ity [facility] Diastolic blood 2022-01-29 16:56:00 92 mm[Hg] Unive rsity of pressure [facility] Heart rate 2022-01-29 16:56:00 99 /min [facility] Body temperature 2022-01-29 16:56:00 36.89 Gena [facility] [place] [facility] Respiratory rate 2022-01-29 16:56:00 20 /min [facility] [place] [facility] Body height 2022-01-29 16:56:00 182.9 cm [facility] Body weight 2022-01-29 16:56:00 123.469 kg [facility] [place] [facility] BMI 2022-01-29 16:56:00 36.92 kg/m2 [facility] [place] [facility] Oxygen saturation in 2022-01-29 16:56:00 95 /min University of Arterial blood by [facility] Pulse oximetry Branch Systolic blood 2022-01-26 19:52:00 106 mm[Hg] Univer [facility]ity [facility] Diastolic blood 2022-01-26 19:52:00 69 mm[Hg] Unive rsity of pressure [facility] Heart rate 2022-01-26 19:52:00 82 /min [facility] [place] [facility] Body temperature 2022-01-26 19:52:00 36.11 Gena [facility] [place] [facility] Respiratory rate 2022-01-26 19:52:00 18 /min [facility] [place] [facility] Body height 2022-01-26 19:52:00 182.9 cm [facility] [place] [facility] Body weight 2022-01-26 19:52:00 122.471 kg [facility] [place] [facility] BMI 2022-01-26 19:52:00 36.62 kg/m2 [facility] [place] [facility] Oxygen saturation in 2022-01-26 19:52:00 95 /min University of Arterial blood by [facility] Pulse oximetry Branch Systolic blood 2021-12-22 18:55:00 107 mm[Hg] Univer sity of pressure [facility] Diastolic blood 2021-12-22 18:55:00 65 mm[Hg] Unive rsity of pressure [facility] Heart rate 2021-12-22 18:55:00 86 /min [facility] [place] [facility] Respiratory rate 2021-12-22 18:55:00 21 /min [facility] [place] [facility] Body height 2021-12-22 18:55:00 182.9 cm [facility] [place] [facility] Body weight 2021-12-22 18:55:00 123.288 kg [facility] [place] [facility] BMI 2021-12-22 18:55:00 36.86 kg/m2 [facility] [place] [facility] Oxygen saturation in 2021-12-22 18:55:00 92 /min University of Arterial blood by [facility] Pulse oximetry Branch Respitory Rate 2020-02-14 16:36:00 Memori al Jean Systolic (mm Hg) 2020-02-14 16:36:00 Brett rial Jean Diastolic (mm Hg) 2020-02-14 16:36:00 Mem orial Jean Heart Rate 2020-02-14 16:00:00 Memorial Jean Respitory Rate 2020-02-14 16:00:00 Memori al Jean Systolic (mm Hg) 2020-02-14 16:00:00 Brett rial Jean Diastolic (mm Hg) 2020-02-14 16:00:00 Mem orial [place] Systolic (mm Hg) 2020-02-14 15:50:00 Brett rial Jean Diastolic (mm Hg) 2020-02-14 15:50:00 Mem orial Jean Heart Rate 2020-02-14 15:50:00 [facility] [place] Respitory Rate 2020-02-14 15:50:00 Memori al Jean Heart Rate 2020-02-14 15:40:00 [facility] [place] Temperature Oral (F) 2020-02-14 15:20:00 36.8 Gena [facility] Temperature Oral (F) 2020-02-14 11:45:00 36.6 Gena [facility] [place] Height 2020-02-14 11:45:00 182.88 cm [facility] [place] Height 2020-02-07 14:38:00 182.88 cm [facility] [place] Procedures Procedure Date / Time Performing Clinician Source Performed [place] TIME OR 2022-03-08 16:45:04 Nataliia Grewal [facility] (NON-REPORTABLE) [facility] FL TIME OR 2022-03-08 16:45:04 Nataliia Grewal [facility] (NON-REPORTABLE) [facility] XR CHEST 1 VW 2022-03-08 16:43:29 Mariza Espinoza [facility] XR CHEST 1 VW 2022-03-08 16:43:29 Annmarie Espinozagail [facility] NM INJECTION SENTINEL 2022-03-08 12:54:00 Nataliia Grewal [facility] NODE [facility] INTUBATION 2022-03-08 12:48:00 Tolu Roger [facility] BREAST LUMPECTOMY 2022-03-08 12:23:00 Nataliia Grewal [facility] [place] LYMPH NODE DISSECTION 2022-03-08 12:23:00 Nataliia Grewal [facility] SENTINEL LYMPH NODE 2022-03-08 12:23:00 Nataliia Grewal [facility] MAPPING [facility] ADJACENT TISSUE 2022-03-08 12:23:00 Nataliia Grewal [facility] REARRANGEMENT [facility] HEMAPORT PLACEMENT 2022-03-08 12:23:00 Nataliia Grewal [facility] DISCLOSURE AND CONSENT, 2022-02-22 05:01:00 Doctor Unassigned, N o [facility] MEDICAL AND SURGICAL Name Medical [facility] PROCEDURES DEXA AXIAL (HIP AND 2022-02-21 16:03:07 Yefri [facility] SPINE) Medical Branch BI US GUIDED CORE BREAST 2022-02-15 17:44:11 Samina Jaffe [facility] BIOPSY LEFT A Medical Branch BI ULTRASOUND BREAST 2022-02-10 20:03:57 [facility] Medical Branch BI ROSITA BASINS LEFT 2022-02-10 20:03:57 [facility]STIC 2022-02-10 19:36:52 [facility] TOMOSYNTHESIS BILATERAL Medical Branch NOTICE OF PRIVACY 2022-01-29 16:50:25 Doctor Unassigned, No [facility] PRACTICES Name Medical Branch CONSENT/REFUSAL FOR 2022-01-29 16:49:49 Doctor Unassigned, No [facility]AT[facility] Medical Branch DME/SUPPLY JUSTIFICATION 2022-01-03 05:01:00 Doctor Unassigned, No [facility] Medical Branch DME/SUPPLY JUSTIFICATION 2021-12-22 05:01:00 Doctor Unassigned, No [facility] Medical Branch APPLICATION SHORT LEG 2020-02-14 13:53:00 Bennett Arana SPLINT-CALF TO FOOT [id number] (Right)<sup>1</sup> CALCANECTOMY [id number] 2020-02-14 13:53:00 Eric Pena (Right)<sup>2</sup> PARTIAL EXCISION TALUS 2020-02-14 13:53:00 Memor ial Jean OR CALCANEUS 89446 (Right)<sup>3</sup> REPAIR ACHILLES TENDON 2020-02-14 13:53:00 Memor ial [place] PRIMARY OPEN OR PERCUTANEOUS 34749 (Right)<sup>4</sup> Colonoscopy 2019-05-15 00:00:00 [facility] bladder repair [facility] Hysterectomy [facility] Tonsillectomy [facility] Encounters Start End Encounter Admission Attending Care Care Encounter Source Date/Time Date/Time Type Type Clinicians Facility Department ID 2021-07-28 Outpatient R KEISHA KEBEDE [facility] [id number] Univers 13:55:23 [facility] 2021-07-21 Outpatient R FRANCISCA [facility] [id number] Univers 08:30:25 ISHMAEL [facility] 2021-03-15 [facility] [id number] Univers 12:33:30 RAJI [facility] 2021-03-15 Emergency [facility] [id number] Univers 01:28:20 [facility] 2021-03-12 Outpatient GUERITA, [facility] [id number] Univers 12:38:09 LY [facility] 2021-03-11 Outpatient R ILDA [facility] [id number] Univers 12:21:47 ALBA [facility] 2022-04-05 2022-04-05 Outpatient R HALIMA ASIF [facility] [id number] Univers 14:30:00 14:30:00 HALIMA ASIF [facility] 2022-03-30 2022-03-30 Outpatient R SHE [facility] [id number] Univers 13:00:00 13:00:00 PARUL [facility] 2022-03-15 2022-03-15 VENANCIO Deshpande [id number] Univers 00:00:00 00:00:00 Management Elza BALL 350.1.13.10 [facility] 4.2.7.2.686 Asher as [id number] [facility] 010 Branch 2022-03-15 2022-03-15 [facility] 1.2.090.109 [id number] Univers 00:00:00 00:00:00 Management Nataliia H[place]T 350.1.13.10 ity [place] [id number] [place]ical NAL 188 Branch [facility] 2022-03-08 2022-03-08 [facility] 1.2.840.114 [id number] Univers 08:17:54 23:59:00 Encounter Nataliia Chiang [place] 350.1.13.10 ity [place] [id number] [facility] 805 Branch 2022-03-08 2022-03-08 Outpatient R [facility] AMRY [id number] Univers 06:37:00 14:12:00 NATALIIA ity [facility] 2022-03-08 2022-03-08 [facility] 1.2.840.114 [id number] Univers 06:37:00 14:12:00 Encounter Nataliia ORTIZTON 350.1.13.10 ity [place] SURGICAL [id number] [facility] 071 Branch 2022-03-08 2022-03-08 Outpatient R HALIMA ASIF [facility] [id number] Univers 13:30:00 13:30:00 HALIMA ASIF ity [facility] 2022-03-08 2022-03-08 Surgery [facility] [id number] Univers 07:20:00 11:50:00 Nataliia S ANGELTON 350.1.13.10 i ty of [place] SUR[place]ICAL [id number] [facility] 020 Branch 2022-03-08 2022-03-08 Anesthesia [facility] [place] 1.2.840.11 [id number] Univers 07:38:00 11:29:00 Event Venancio Chery 350.1.13.10 ity of [place] [id number] [facility] 020 [place] 2022-03-01 2022-03-01 Outpatient R KAROLINA ASIFMARICARMENAníbal [facility] [id number] Univers 16:30:00 17:12:37 HALIMA ASIF ity [facility] 2022-03-01 2022-03-01 Office [facility] 1.2.840.114 [id number] Univers 16:30:00 17:12:37 Visit Felixrituaníbal [place] 350.1.13.10 ity of [facility] 4.2.7.2.[place] [id number] [place] dical NAL 044 [facility] 2022-03-01 2022-03-01 Office [facility] 1.2.840.114 [id number] Univers 15:30:00 17:09:47 Visit Halima [place] 350.1.13.10 ity of [facility] 4.2.7.2.[place] [id number] [place] dical NAL 044 [facility] 2022-02-22 2022-02-22 [facility] [id number] Univers 13:00:00 14:54:14 NATALIIA waldropy [facility] 2022-02-22 2022-02-22 Office [facility] [id number] Univers 13:00:00 14:54:14 Visit Nataliiagus ORTIZGLADYS 350.1.13.10 i ty of [facility] 4.2.7.2.[place] [id number] [place] dical NAL 419 [facility] 2022-02-22 2022-02-22 Orders Doctor VENANCIO 1.2.840.114 [id number] Univers 00:00:00 00:00:00 Only Unassigned, SHANIA 350.1.13.10 ity of [place] [facility] 4.2.7.2.686 Asher as [phone] [address] 2022-02-21 2022-02-21 Outpatient R HALIMA ASIF [facility] [id number] Univers 10:18:41 23:59:00 HALIMA ASIF ity [facility] 2022-02-21 2022-02-21 [facility] 1.2.197.105 [id number] Univers 10:18:41 23:59:00 Encounter Halima [place] 350.1.13.10 ity [facility] 4.2.7.2.686 [facility] [id number] [facility] 800 Branch 2022-02-17 2022-02-17 Out[facility] [id number] Univers 14:30:00 14:30:00 DIO itDell [facility] 2022-02-15 2022-02-15 Outpatient [facility] [id number] Univers 10:41:05 23:59:00 CHRISTY ity [facility] 2022-02-15 2022-02-15 [facility] 1.2.840.114 [id number] Univers 10:41:05 23:59:00 Encounter Christy Almazan [facility] 350.1.13.10 [facility] 4.2.7.2.686 [facility] AT [id number] [place] angelique PISANO 800 Branch [facility] 2022-02-14 2022-02-14 Office [facility] 1.2.840.114 [id number] Univers 13:00:00 13:30:00 Visit Kan ARCE 350.1.13.10 i ty of [facility] [place].7.2.[place] [id number] [facility] 144 Branch 2022-02-14 2022-02-14 Outpatient [facility] [id number] Univers 13:00:00 13:00:00 KAN ity [facility] 2022-02-10 2022-02-10 [facility] 1.2.348.913 [id number] Univers 13:44:17 23:59:00 Encounter Ogechukwu SPECIALTY 350.1.13.10 ity of [place]2.7.2.[place] C[place] AT [id number] [place] angelique PISANO 800 [facility] 2022-02-10 2022-02-10 Outpatient R HALIMA ASIF [facility] [id number] Univers 13:42:36 13:43:00 HALIMA ASIF ity [facility] 2022-02-10 2022-02-10 [facility] 1.2.117.007 [id number] Univers 13:42:36 13:43:00 Encounter Ogechukwu SPECIALTY 350.1.13.10 ity of [place].2.[place] AT [id number] [place] angelique PISANO [address] [place] [address] 2022-02-10 2022-02-10 Telephone [facility] 1.2.840.114 [id number] Univers 00:00:00 00:00:00 Christy [place] 350.1.13.10 ity of [place] [id number] [place] angelique VAZQUEZ 231 [facility] 2022-01-31 2022-01-31 Telephone [facility] 1.2.840.114 [id number] Univers 00:00:00 00:00:00 Christy [place] 350.1.13.10 ity of [place] [id number] [place] angel[place] VAZQUEZ 044 [facility] 2022-01-29 2022-01-29 Emergency [facility] [id number] Univers 12:01:00 12:09:00 PARUL bergman [facility] 2022-01-29 2022-01-29 Emergency [facility] 1.2.840.114 [id number] Univers 12:01:00 12:09:00 Parul [place] 350.1.13.10 ity of [facility] 4.2.7.2.[place] [id number] [facility] [address] [place] [address] 2022-01-29 2022-01-29 Orders Doctor VENANCIO 1.2.840.114 [id number] Univers 00:00:00 00:00:00 Only Unassigned, SHANIA 350.1.13.10 ity of [place] [facility] 4.2.7.2.686 Asher as [id number] [facility] [address] [place] 2022-01-26 2022-01-26 Outpatient R HALIMA ASIF [facility] [id number] Univers 14:30:00 15:46:23 DAVID ASIFSUGAR ity of [facility] 2022-01-26 2022-01-26 Office [facility] 1.2.840.114 [id number] [facility] 14:30:00 15:46:23 Visit [facility] [place] 350.1.13.10 ity of [place].2.[place] [id number] [place] dicwv NAL 044 [facility] 2022-01-24 2022-01-24 [facility] [id number] [facility] 15:00:00 15:00:00 CHRISTY ity [facility] 2022-01-11 2022-01-11 Telephone Mitra [facility] 1.2.840.114 [id number] [facility] 00:00:00 00:00:00 Yessenia [place] 350.1.13.10 ity of [place] [id number] [facility] 085 [facility] 2022-01-03 2022-01-03 Telephone Team, [facility] VENANCIO 1.2.840.114 [id number] [facility] 00:00:00 00:00:00 Health SHANIA 350.1.13.10 it y of Maintenance HOSPITAL 4.2.7.2.686 [place] [id number] [facility] [address] [place] 2022-01-03 2022-01-03 Orders Doctor CRAFT 1.2.840.114 [id number] Univers 00:00:00 00:00:00 Only Unassigned, SHANIA 350.1.13.10 ity of [place] [facility] 4.2.7.2.686 Asher as [id number] [address] 2022-01-03 2022-01-03 Telephone [facility] 1.2.840.114 [id number] Univers 00:00:00 00:00:00 Strabettyl Dee [place] 350.1.13.10 ity of [facility] 4.2.7.2.[place] [id number] [address] 2021-12-22 2021-12-22 Office Mitra [facility] 1.2.759.348 [id number] Univers 13:20:00 15:13:07 Visit Sandramdl Dee ANGLEGLADYS 350.1.13.10 ity of [facility] 4.2.7.2.[place] [id number] [address] 2021-12-22 2021-12-22 Outpatient R CEDOV, STRAHIL [facility] [id number] Univers 13:20:00 15:13:07 ATANASOV, STRAHIL ity [facility] 2021-12-22 2021-12-22 [facility] [id number] Univers 13:20:00 13:20:00 ATANASOV, STRAHIL ity [facility] 2021-12-22 2021-12-22 Outpatient R ATANASOV, STRAAKL [facility] [id number] Univers 13:20:00 13:20:00 [facility] 2021-12-22 2021-12-22 Orders Doctor VENANCIO 1.2.840.[id number] [place] [address] 00:00:00 00:00:00 Only Unassigned, SHANIA 350.1.13.10 ity of [place] [facility] 4.2.7.2.686 Asher as [id number] [address] 2021-12-15 2021-12-15 Medical Research Associate 2, Adc Lab [facility] 1.2.840.114 [id number] Univers 14:00:00 14:15:00 Visit Christy Jaffe 350.1. 13.10 ity of [facility] 4.2.7.2.[place] [facility] [id number] [place] dical NAL 353 [facility] 2021-12-15 2021-12-15 Outpatient R LD [facility] [id number] Univers 14:00:00 14:00:00 CHRISTY [facility] 2021-12-13 2021-12-13 Office Yefri [facility] 1.2.840.114 [id number] Univers 11:00:00 11:55:58 Visit Halima [place] 350.1.13.10 ity [facility] 4.2.7.2.686 [place] [facility] [id number] [place] dical NAL 044 [facility] 2021-12-13 2021-12-13 Outpatient R HALIMA ASIF [facility] [id number] Univers 11:00:00 11:55:58 HALIMA ASIF [facility] 2021-12-13 2021-12-13 Outpatient R LD [facility] [id number] Univers 11:00:00 11:00:00 CHRISTY [facility] 2021-12-13 2021-12-13 Outpatient R HALIMA ASIF [facility] [id number] Univers 11:00:00 11:00:00 YEFRI DAVIDJIMENA [facility] 2021-12-02 2021-12-02 Medical Research Associate 1, [facility] Sleep Lab Bed [facility] 1. 2.840.114 [id number] Univers 20:00:00 22:30:00 Visit Yessenia [facility] 350.1.13. 10 [facility] [place].2.[place] [id number] [address] 2021-12-02 2021-12-02 Outpatient R YESSENIA LIN [facility] [id number] Univers 20:00:00 20:00:00 YESSENIA LIN [facility] 2021-12-02 2021-12-02 Orders Doctor CRAFT 1.2.840.114 [id number] Univers 00:00:00 00:00:00 Only Unassigned, SHANIA 350.1.13.10 [facility] 4.2.7.2.686 Asher as [id number] [facility] 009 Branch 2021-11-30 2021-11-30 Laboratory Only, [facility] Test [place] 1.2.840. 114 [id number] Univers 13:45:00 14:00:00 Only Yessenia Lin 350.1.13. 10 ity of [place] [id number] [facility] 353 Branch 2021-11-30 2021-11-30 Outpatient R YESSENIA LIN [facility] [id number] Univers 13:45:00 13:45:00 YESSENIA LIN ity of [facility] 2021-11-22 2021-11-22 [facility] 1.2.840.114 [id number] Univers 00:00:00 00:00:00 Christy [place] 350.1.13.10 ity of [place] [id number] [address] 2021-11-18 2021-11-18 Telephone [facility] 1.2.840.114 [id number] Univers 00:00:00 00:00:00 Christy [place] 350.1.13.10 ity of [place] [id number] [place] dic[address] 2021-11-16 2021-11-16 Outpatient GUU_SHENG_Y [facility] 119 989- [place] 04:54:00 04:54:00 [place] [id number] [facility] 2021-11-16 2021-11-16 Outpatient GUU_SHENG_Y [facility] 119 989 [place] 03:54:00 03:54:00 AW [id number] [facility] 2021-11-09 2021-11-09 Medical Research Associate 1, [facility] Sleep Lab Bed [facility] 1. 2.840.114 [id number] Univers 19:30:00 22:00:00 Visit Yessenia Lin [place] 350.1.13. 10 ity of [place] 4.2.7.2.686 [facility] [id number] [facility] [address] 2021-11-09 2021-11-09 Outpatient R ATAREJI, STRAHIL [facility] [id number] Univers 19:30:00 19:30:00 ATANASOV, STRAHIL ity [facility] 2021-11-09 2021-11-09 Outpatient R ATANASOV, STRAHIL [facility] [id number] Univers 19:30:00 19:30:00 ATANASOV, STRAHIL ity [facility] 2021-11-09 2021-11-09 Outpatient R ATAREJI STRAHIL [facility] [id number] Univers 19:30:00 19:30:00 ATASIMONEOV, STRAHIL ity [facility] 2021-11-09 2021-11-09 Outpatient R ATAREJI, STRAHIL [facility] [id number] Univers 19:30:00 19:30:00 ATANASOV, STRAHIL ity [facility] 2021-11-09 2021-11-09 Outpatient R SANDRA LINHIL [facility] [id number] Univers 19:30:00 19:30:00 ATASIMONEOV, STRAHIL ity [facility] 2021-11-08 2021-11-08 Laboratory Only, Adc Test [facility] 1.2.840. 114 [id number] Univers 10:00:00 10:15:00 Only Anay Linl Dee [place] 350.1.13. 10 ity of [facility] 4.2.7.2.686 [facility] [phone] [facility] [address] 2021-11-08 2021-11-08 Outpatient R ATAREJI, STRAHIL [facility] [id number] Univers 10:00:00 10:00:00 ATANASOV, STRAHIL ity [facility] 2021-11-08 2021-11-08 Orders Doctor CRAFT 1.2.840.114 [id number] Univers 00:00:00 00:00:00 Only Unassigned, SHANIA 350.1.13.10 ity of [facility] 4.2.7.2.686 Asher as [phone] [facility] [address] [place] 2021-11-05 2021-11-05 [facility] 1.2.840.114 [id number] Univers 00:00:00 00:00:00 Christy [place] 350.1.13.10 it[place] [phone] [place] d[place] NAL 044 [facility] 2021-11-04 2021-11-04 Outpatient [facility] [id number] Univers 16:20:00 17:30:53 CHRISTY [facility] 2021-11-04 2021-11-04 Office [facility] 1.2.840.114 [id number] Univers 16:20:00 17:30:53 Visit Christy [place] 350.1.13.10 ity [facility] 4.2.7.2.[place] [phone] [facility] 231 [facility] 2021-11-04 2021-11-04 Outpatient R [facility] [id number] Univers 16:20:00 16:20:00 CHRISTY [facility] 2021-11-01 2021-11-01 Out[facility] [id number] Univers 13:00:00 13:38:06 KAN [facility] 2021-11-01 2021-11-01 Office [facility] 1.2.840.114 [id number] Univers 13:00:00 13:38:06 Visit Kan ARCE 350.1.13.10 i ty of [facility] 4.2.7.2.686 [place] [phone] [facility] [address] [place] 2021-11-01 2021-11-01 [facility] [id number] Univers 13:00:00 13:38:06 [facility] 2021-10-04 2021-10-04 Outpatient [facility] [id number] Univers 15:00:00 16:27:34 CHRISTY bergman [facility] 2021-10-04 2021-10-04 Office [facility] 1.2.840.114 [id number] Univers 15:00:00 16:27:34 Visit Christy [place] 350.1.13.10 it[place] of [place] [phone] [place] dic[address] 2021-09-27 2021-09-27 Out[facility] [id number] Univers 13:00:00 13:00:00 CHRISTY [facility] 2021-09-20 2021-09-20 Office [facility] 1.2.840.114 [id number] Univers 13:00:00 13:30:00 Visit Kan ARCE 350.1.13.10 i ty [facility] 4.2.7.2.686 [place] [id number] [address] 2021-09-20 2021-09-20 Outpatient R MARTINEZPROSPERCLEVEL[facility] [id number] Univers 13:00:00 13:00:00 KANDel [facility] 2021-08-27 2021-08-27 Outpatient R [facility] [id number] Univers 14:20:00 15:17:19 CHRISTY [facility] 2021-08-27 2021-08-27 Office [facility] 1.2.840.114 [id number] Univers 14:20:00 15:17:19 Visit Christy [place] 350.1.13.10 ity [facility] 4.2.7.2.[place] [id number] [place] dic[address] 2021-08-27 2021-08-27 Outpatient [facility] [id number] Univers 14:20:00 15:17:19 [facility] 2021-08-13 2021-08-13 Outpatient R [facility] [id number] Univers 10:15:00 12:55:00 ity of [facility] 2021-08-13 2021-08-13 Hospital [facility] 1.2.840.114 [id number] Univers 10:15:00 12:55:00 Encounter [facility] 350.1.13.10 ity [facility] 4.2.7.2.686 [facility] [phone] [address] ([facility]) 2021-08-13 2021-08-13 Outpatient R [facility] [id number] Univers 10:15:00 12:55:00 ity of [facility] 2021-08-13 2021-08-13 Surgery aníbal [facility] 1.2.799.940 [id number] Univers 12:00:00 12:45:00 [facility] 350.1.13.10 ity of CARE 4.2.7.2.686 [facility] BETHEL AT [phone] [place] dical VICTORY 020 [facility] 2021-08-13 2021-08-13 Anesthesia Amanda Banda [facility] 1.2 .840.114 [id number] Univers 12:03:00 12:28:00 Event Jayne Garcia SPECIALTY 350.1.13.10 ity of CARE 4.2.7.2.686 [facility] AT [phone] [place] dical VICTORY 020 [facility] 2021-08-13 2021-08-13 Orders Doctor VENANCIO 1.2.840.114 [id number] Univers 00:00:00 00:00:00 Only Unassigned, SHANIA 350.1.13.10 ity of [facility] 4.2.7.2.686 Asher [id number] [address] 2021-08-12 2021-08-12 Laboratory Only, Adc Test [place] 1.2.840. 114 [id number] Univers 14:15:00 14:30:00 Only Christy Jaffe 350.1. 13.10 ity of [facility] 4.2.7.2.686 [facility] [phone] [facility] [address] 2021-08-12 2021-08-12 Outpatient R LD [facility] [id number] Univers 14:15:00 14:15:00 CHRISTY [facility] 2021-08-09 2021-08-09 Office [facility] 1.2.840.114 [id number] Univers 16:00:00 16:30:00 Visit Kan YAZMIN 350.1.13.10 i ty [facility] 4.2.7.2.686 [place] [phone] [facility] [address] 2021-08-09 2021-08-09 Outpatient R [facility] [id number] Univers 16:00:00 16:00:00 [facility] 2021-08-09 2021-08-09 Outpatient [facility] [id number] Univers 16:00:00 16:00:00 [facility] 2021-08-02 2021-08-02 Outpatient R [facility] [id number] Univers 14:30:00 14:30:00 [facility] 2021-08-02 2021-08-02 Orders Doctor VENANCIO 1.2.840.114 [id number] Univers 00:00:00 00:00:00 Only Unassigned, SHANIA 350.1.13.10 ity of [place] [facility] 4.2.7.2.686 Asher as [phone] [facility] [address] 2021-07-26 2021-07-26 Laboratory Only, Adc Test [facility] 1.2.840. 114 [id number] Univers 13:00:00 13:15:00 Only Ishmael Isabel 350.1.13.1 0 ity [facility] 4.2.7.2.686 [facility] [phone] [facility] [address] 2021-07-26 2021-07-26 Outpatient R FRANCISCA [facility] [id number] Univers 13:00:00 13:00:00 ISHMAEL waldropy o f [facility] 2021-07-26 2021-07-26 Refill [facility] 1.2.840.114 [id number] Univers 00:00:00 00:00:00 Christy A [place] 350.1.13.10 ity of [place].2.[place] [phone] [place] dical NAL 231 [facility] 2021-07-22 2021-07-22 Patient Ld [facility] 1.2.840.114 [id number] Univers 00:00:00 00:00:00 Secure Msg Christy A [place] 350.1.13.10 ity of [facility] 4.2.7.2.686 [place] [phone] [place] angelique VAZQUEZ 044 [facility] 2021-07-16 2021-07-16 Prep For [facility] 1.2.840.114 [id number] Univers 00:00:00 00:00:00 Surgery Loco SPECIALTY 350.1.13.10 ity of [place] [facility] 4.2.7.2.[place] [phone] [place] angelique PISANO [address] [place] [address] 2021-07-16 2021-07-16 Telephone [facility] 1.2.840.114 [id number] Univers 00:00:00 00:00:00 Christy A [place] 350.1.13.10 ity of [place].2.[place] [phone] [place] dicdoroteo VAZQUEZ [address] [place] [address] 2021-07-14 2021-07-14 Telephone [facility] 1.2.840.114 [id number] Univers 00:00:00 00:00:00 Christy A [place] 350.1.13.10 ity of [place] 4.2.7.2.[place] [phone] [place] dical NAL [address] [place] [address] 2021-07-14 2021-07-14 Patient Lydia [facility] 1.2.840.114 [id number] Univers 00:00:00 00:00:00 Secure Msg Loco SPECIALTY 350.1.13.10 ity of [facility] 4.2.7.2.[place] AT [phone] [place] angelique PISANO 072 [facility] 2021-07-13 2021-07-13 Office [facility] 1.2.840.114 [id number] Univers 15:20:00 16:59:17 Visit Christy [place] 350.1.13.10 ity [facility] 4.2.7.2.686 [facility] [phone] [place] angelique NAL 231 [facility] 2021-07-13 2021-07-13 Outpatient R [facility] [id number] [id number] Univers 15:20:00 16:59:17 [facility]STY [facility] [place] 2021-07-13 2021-07-13 Outpatient R [facility] [id number] Univers 15:20:00 15:20:00 CHRISTY waldropDell [facility] [place] 2021-07-13 2021-07-13 Telephone [facility] 1.2.840.114 [id number] Univers 00:00:00 00:00:00 Christy [place] 350.1.13.10 ity [facility] 4.2.7.2.686 [facility] [phone] [place] angelique VAZQUEZ 044 [facility] 2021-07-09 2021-07-09 Outpatient R [facility] [id number] Univers 12:17:22 23:59:00 BRODY bergman [facility] 2021-07-09 2021-07-09 [facility] 1.2.840.114 [id number] Univers 12:17:22 23:59:00 Encounter Brody [place] 350.1.13.10 ity of [place] [phone] [facility] [address] [place] 2021-07-09 2021-07-09 Out[facility] [id number] Univers 12:17:22 12:17:22 BRODY bergman [facility] 2021-07-09 2021-07-09 Medical Research Associate 2, Adc Lab [facility] 1.2.840.114 [id number] Univers 11:45:00 12:00:00 Visit Christy Jaffe 350.1. 13.10 ity of [place].2.[place] [phone] [place] d[place] NAL 353 [facility] 2021-07-08 2021-07-08 Telephone dL [facility] 1.2.840.114 [id number] Univers 00:00:00 00:00:00 Christy [place] 350.1.13.10 ity of [place].2.[place] [phone] [place] dical NAL 044 [facility] 2021-07-05 2021-07-05 Office Sherwin [facility] 1.2.840.114 [id number] Univers 14:45:00 15:15:00 Visit Kan ARCE 350.1.13.10 i ty [facility] 4.2.7.2.686 [place] [phone] [address] 2021-07-05 2021-07-05 Outpatient [facility] [id number] Univers 14:45:00 14:45:00 KAN [facility] 2021-07-05 2021-07-05 Outpatient R SHERWIN [facility] [id number] Univers 14:45:00 14:45:00 KAN [facility] [place] 2021-07-05 2021-07-05 Outpatient R SHERWIN [facility] [id number] Univers 14:45:00 14:45:00 KAN [facility] [place] 2021-07-01 2021-07-01 Outpatient R LD [facility] [id number] Univers 16:20:00 17:49:36 CHRISTY bergman [facility] 2021-07-01 2021-07-01 Office [facility] 1.2.840.114 [id number] Univers 16:20:00 17:49:36 Visit Christy [place] 350.1.13.10 ity [facility] 4.2.7.2.[place] [phone] [place] dic[address] 2021-07-01 2021-07-01 Outpatient R LD [facility] [id number] Univers 16:20:00 16:20:00 CHRISTY [facility] [place] 2021-07-01 2021-07-01 Office Loco Freeman [facility] 1.2 .840.114 [id number] Univers 11:00:00 11:30:00 Visit Brody Ferrer [facility] 350.1.13. 10 ity [facility] 4.2.7.2.686 [place] [phone] [address] 2021-07-01 2021-07-01 Outpatient [facility] [id number] Univers 11:00:00 11:00:00 BRODY [facility] 2021-07-01 2021-07-01 Outpatient R [facility] [id number] Univers 11:00:00 11:00:00 BRODY [facility] 2021-06-17 2021-06-17 Outpatient R [facility] [id number] Univers 16:20:00 16:55:29 CHRISTY [facility] 2021-06-17 2021-06-17 Telemedici Jaffe, [facility] 1.2.840.114 [id number] Univers 16:20:00 16:55:29 ne Visit Christy [place] 350.1.13.10 [facility] [place].2.7.2.[place] [phone] [place] dic[address] 2021-06-17 2021-06-17 Outpatient R [facility] [id number] Univers 16:20:00 16:20:00 CHRISTY [facility] 2021-06-17 2021-06-17 Telephone [facility] 1.2.840.114 [id number] Univers 00:00:00 00:00:00 Christy A [place] 350.1.13.10 ity of [place] 4.2.7.2.686 [place] [phone] [address] 2021-06-14 2021-06-14 Telephone [facility] 1.2.840.114 [id number] Univers 00:00:00 00:00:00 Christy Almazan [place] 350.1.13.10 ity of [facility] 4.2.7.2.686 [place] [phone] [address] 2021-06-09 2021-06-09 Telephone [facility] 1.2.840.114 [id number] Univers 00:00:00 00:00:00 Christy Almazan [place] 350.1.13.10 ity of [facility] 4.2.7.2.686 [place] [id number] [address] 2021-06-07 2021-06-07 Outpatient R SHERWIN [facility] [id number] Univers 13:30:00 13:30:00 KAN [facility] 2021-05-28 2021-05-28 Outpatient [facility] [id number] Univers 16:20:00 16:20:00 CHRISTY [facility] 2021-05-28 2021-05-28 Office [facility] 1.2.840.114 [id number] Univers 13:00:00 14:10:09 Visit Halima [place] 350.1.13.10 ity of [facility] 4.2.7.2.686 [place] [phone] [address] 2021-05-28 2021-05-28 Outpatient R HALIMA ASIF [facility] [id number] Univers 13:00:00 14:10:09 HALIMA ASIF ity [facility] 2021-05-28 2021-05-28 Outpatient R HALIMA ASIF [facility] [id number] Univers 13:00:00 13:00:00 HALIMA ASIF ity [facility] 2021-05-25 2021-05-25 Office Mike [facility] 1.2.840.114 [id number] Univers 11:15:00 11:30:[address] [facility] 350.1.13.10 it y of [place]2.7.2.[place] C[place] - [phone] Med ical [facility] [address] 2021-05-25 2021-05-25 Outpatient R MIKE [facility] [id number] Univers 11:15:00 11:15:00 KATHY ity [facility] 2021-05-25 2021-05-25 Outpatient [facility] [id number] Univers 11:15:00 11:15:00 KATHY [facility] 2021-05-12 2021-05-12 Emergency X GORGE, [facility] ERT [id number] Univers 10:45:00 17:21:00 SHWETHA [facility] 2021-05-12 2021-05-12 Emergency Gorge, [facility] 1.2.367.585 [id number] Univers 10:45:00 17:21:00 [facility] 350.1.13.10 [place]2.[place] [id number] [address] 2021-05-12 2021-05-12 Outpatient R YEYO, [facility] [id number] Univers 09:00:00 09:09:13 ATTENDING ity [facility] 2021-05-12 2021-05-12 Nurse Nurse, [facility] 1.2.840.114 [id number] Univers 09:00:00 09:09:13 Visit Unknown, [facility] HEALTH 350.1.13.10 ity of [place] 4.2.7.2.686 Asher as SAMSON?BLEA [phone] [place] angelique [address] MEDICAL OFFICE BUILDING 2021-05-11 2021-05-11 Telephone Ld [facility] 1.2.840.114 [id number] Univers 00:00:00 00:00:00 Christy [place] 350.1.13.10 ity of [place].2.686 [place] [phone] [place] dical NAL [address] BUILDING 2021-04-28 2021-04-28 Outpatient R BENJAMIN [facility] [id number] Univers 14:00:00 15:36:47 HEIDI bergman [facility] 2021-04-28 2021-04-28 Ancillary Screening/Hack, [employer] [facility] 1.2.840.114 [id number] Univers 14:00:00 15:36:47 Visit Heidi Wilkes 350.1.13.10 ity [facility] 4.2.7.2.686 Asher as BANK [phone] [facility] BLDG. [address] [place] 2021-04-28 2021-04-28 Outpatient R BENJAMIN [facility] [id number] Univers 14:00:00 15:36:47 HEIDI bergman [facility] 2021-04-28 2021-04-28 Outpatient R BENJAMIN [facility] [id number] Univers 14:00:00 14:00:00 HEIDI bergman [facility] 2021-04-26 2021-04-26 Office [facility] 1.2.840.114 [id number] Univers 13:22:28 13:37:28 Visit Kan ARCE 350.1.13.10 i ty of [facility] 4.2.7.2.686 [place] [id number] [facility] [address] 2021-04-26 2021-04-26 Outpatient R SHERWIN [facility] [id number] Univers 13:30:00 13:30:00 KAN bergman [facility] 2021-04-26 2021-04-26 Outpatient R SHERWIN [facility] [id number] Univers 13:30:00 13:30:00 KAN bergman [facility] 2021-04-26 2021-04-26 Outpatient [facility] [id number] Univers 13:30:00 13:30:00 KAN bergman [facility] 2021-04-26 2021-04-26 Outpatient [facility] [id number] Univers 13:30:00 13:30:00 KAN [facility] 2021-04-26 2021-04-26 Orders Doctor VENANCIO 1.2.840.114 [id number] Univers 00:00:00 00:00:00 Only Unassigned, SHANIA 350.1.13.10 ity of [place] [facility] 4.2.7.2.686 Asher as [id number] [address] 2021-04-23 2021-04-23 Outpatient [facility] [id number] Univers 15:00:00 15:00:00 CHRISTY [facility] 2021-04-23 2021-04-23 Outpatient R MARJORIE [facility] [id number] Univers 13:00:00 13:00:00 LOCO [facility] 2021-04-23 2021-04-23 Outpatient R [facility] [id number] Univers 13:00:00 13:00:[address] [facility] 2021-04-05 2021-04-06 Outpatient R [facility] [id number] Univers 15:40:00 10:56:06 CHRISTY [facility] 2021-04-05 2021-04-06 Telemedici [facility] 1.2.840.114 [id number] Univers 09:57:06 10:56:06 ne Visit Christy [place] 350.1.13.10 ity of [place].2.[place] [phone] [address] 2021-04-06 2021-04-06 Orders Doctor VENANCIO 1.2.840.114 [id number] Univers 00:00:00 00:00:00 Only Unassigned, SHANIA 350.1.13.10 ity of [place] [facility] 4.2.7.2.686 Asher as [id number] [address] 2021-04-02 2021-04-02 Outpatient [facility] [id number] Univers 11:30:00 12:33:59 OSEAS [facility] 2021-04-02 2021-04-02 Outpatient R SUSSY [facility] [id number] Univers 11:30:00 12:33:59 OSEAS bergman [facility] 2021-04-02 2021-04-02 Outpatient R SUSSY [facility] [id number] Univers 11:30:00 12:33:59 OSEAS bergman [facility] 2021-04-02 2021-04-02 Ancillary [facility]idi Wilkes [facility] 1.2.840.1 14 [id number] Univers 11:15:32 12:33:59 Visit Oseas Hi Jaja 350.1.13.10 ity of [facility] 4.2.7.2.686 Asher as BANK [phone] [facility] BLDG. [address] [place] 2021-03-29 2021-03-29 Outpatient [facility] [id number] Univers 11:00:00 14:39:01 CHRISTY waldropjaja [facility] 2021-03-29 2021-03-29 Telemedici [facility] 1.2.840.114 [id number] Univers 07:49:34 14:39:01 ne Visit Christy [place] 350.1.13.10 ity [facility] 4.2.7.2.[place] [phone] [place] dical NAL 231 [facility] 2021-03-29 2021-03-29 Outpatient [facility] [id number] Univers 11:00:00 11:00:00 CHRISTY waldropjaja [facility] 2021-03-25 2021-03-25 Medical Research Associate 2, Adc Lab [facility] 1.2.840.114 [id number] Univers 12:55:28 13:10:28 Visit Raji Garcia 350.1.13.10 ity of [place].2.[place] [phone] [place] dical NAL 353 [facility] 2021-03-25 2021-03-25 Office Zaire Tobias [facility] 1.2.840.114 [id number] Univers 11:08:23 11:38:23 Visit Brody Ferrer [facility] 350.1.13. 10 ity of [facility] 4.2.7.2.686 [place] [id number] [facility] [address] [place] 2021-03-25 2021-03-25 Outpatient R [facility] [id number] Univers 11:00:00 11:00:00 BRODY jaja [facility] 2021-03-25 2021-03-25 Outpatient R [facility] [id number] Univers 11:00:00 11:00:00 BRODY bergman [facility] 2021-03-25 2021-03-25 Outpatient R [facility] [id number] Univers 11:00:00 11:00:00 [facility] 2021-03-22 2021-03-23 Outpatient Hank JAFFE [facility] [id number] Univers 15:40:00 08:32:07 [facility] [place] 2021-03-22 2021-03-23 [facility] [id number] Univers 15:40:00 08:32:07 CHRISTY [facility] 2021-03-22 2021-03-23 Telemedici Jaffe, [facility] [id number] Univers 08:14:34 08:32:07 ne Visit Christy [place] [id number] ity [facility] [id number] [phone] [address] 2021-03-22 2021-03-22 [facility] 1.2.840.114 [id number] Univers 13:36:07 14:11:08 Visit Kan ARCE 350.1.13.10 i ty of [facility] [place] [phone] [facility] [address] 2021-03-22 2021-03-22 [facility] [id number] Univers 13:00:00 14:11:08 KAN [facility] 2021-03-22 2021-03-22 Outpatient R SHERWIN [facility] [id number] Univers 13:00:00 14:11:08 KAN ity [facility] 2021-03-22 2021-03-22 Outpatient R SEHRWIN [facility] [id number] Univers 13:00:00 14:11:08 KAN ity [facility] 2021-03-22 2021-03-22 Outpatient R SHERWIN [facility] [id number] Univers 13:00:00 14:11:08 [facility] 2021-03-22 2021-03-22 [facility] 1.2.840.114 [id number] Univers 00:00:00 00:00:00 Christy HONEYCUTT 350.1.13.10 ity [facility] [place] [phone] [place] N[place] [address] [place] [address] 2021-03-12 2021-03-12 Ancillary Chante Cagle [facility] 1.2 .840.114 [id number] Univers 16:04:23 16:34:23 Visit Fany Giordano 350.1.13.1 0 ity [facility] [place] [phone] [address] 2021-03-12 2021-03-12 Outpatient Hank GIORDANO [facility] [id number] Univers 16:00:00 16:00:00 [facility] 2021-03-12 2021-03-12 Outpatient Hank GIORDANO [facility] [id number] Univers 16:00:00 16:00:00 [facility] 2021-03-12 2021-03-12 Outpatient Hank GIORDANO [facility] [id number] Univers 16:00:00 16:00:00 FANY [facility] 2021-03-12 2021-03-12 Outpatient Hank GIORDANO [facility] [id number] Univers 16:00:00 16:00:00 FANY ity of [facility] 2021-03-10 2021-03-10 Telephone JETT Alvarez 1.2.840.114 [id number] Univers 00:00:00 00:00:00 Petra Archer 350.1.13.10 ity of NATIONAL 4.2.7.2.686 Asher as [facility] [phone] [facility] [address]. [address] 2021-03-10 2021-03-10 Telephone [facility] 1.2.840.114 [id number] Univers 00:00:00 00:00:00 Kan YAZMIN 350.1.13.10 i ty of [facility] [place] [phone] [facility] [address] 2021-02-26 2021-02-26 Telephone [facility] 1.2.840.114 [id number] Univers 00:00:00 00:00:00 Kan ARCE 350.1.13.10 i ty of [facility] [phone] [address] 2021-02-19 2021-02-19 Office [facility] 1.2.840.114 [id number] Univers 16:50:16 17:05:16 Visit [facility] 350.1.13.10 it y of Cancer 4.2.7.2.686 [facility] [phone] Med [address] 2021-02-19 2021-02-19 Outpatient Hank GARCIA [facility] [id number] Univers 16:45:00 16:45:00 RAIJ ity [facility] 2021-02-19 2021-02-19 Outpatient Hank GARCIA [facility] [id number] Univers 16:45:00 16:45:00 RAJI ity [facility] 2021-02-19 2021-02-19 Outpatient Hank GARCIA [facility] [id number] Univers 16:45:00 16:45:00 RAJI ity [facility] 2021-02-19 2021-02-19 Outpatient [facility] [id number] Univers 16:45:00 16:45:00 RAJI madalyn [facility] 2021-02-18 2021-02-18 Telemedici [facility] 1.2.840.114 [id number] Univers 08:13:40 13:26:06 ne Visit Christy Honeycutt 350.1.13.10 ity [place] [phone] [place] dical [place]al 231 [facility] 2021-02-18 2021-02-18 Out[facility] [id number] Univers 11:00:00 11:00:00 CHRISTY bergman [facility] 2021-02-15 2021-02-15 Office [facility] 1.2.840.114 [id number] Univers 12:46:10 13:01:10 Visit Kan ARCE 350.1.13.10 i ty [facility] [place]2.[phone] [address] 2021-02-15 2021-02-15 [facility] [id number] Univers 13:00:00 13:00:00 KANSUNITA bergman [facility] 2021-02-15 2021-02-15 Out[facility] [id number] Univers 13:00:00 13:00:00 KAN bergman [facility] 2021-02-15 2021-02-15 Outpatient [facility] [id number] Univers 13:00:00 13:00:00 KAN madalyn [facility] 2021-02-15 2021-02-15 [facility] 1.2.840.114 [id number] Univers 00:00:00 00:00:00 Christy Honeycutt 350.1.13.10 ity [place] [phone] [place] dical nal 044 [facility] 2021-02-11 2021-02-11 [facility] Laurel Garcia 1.2.953.379 [id number] Univers 10:53:00 20:01:00 Encounter Raji Shania 350.1.13.10 ity of Hospital 42.7.2.686 Asher as [phone] [facility] [address] 2021-02-11 2021-02-11 Surgery Laurel Garcia 1.2.840.114 [id number] Univers 13:44:00 18:19:00 Raji [place] 350.1.13.10 it y of Hospital 4.2.7.2.686 Asher as [phone] [facility] [address] 2021-02-11 2021-02-11 Orders Doctor VENANCIO 1.2.840.114 [id number] Univers 00:00:00 00:00:00 Only Unassigned, SHANIA 350.1.13.10 ity of [place] [facility] 4.2.7.2.686 Asher as [phone] [facility] [address] 2021-02-10 2021-02-10 Outpatient R [facility] [id number] Univers 11:00:00 11:00:00 ity of [facility] 2021-02-10 2021-02-10 Laboratory Only, Adc Test [facility] 1.2.840. 114 [id number] Univers 10:43:01 10:58:01 Only Frederick Sellers 350.1.13.10 ity [place] [phone] [facility] [address] 2021-02-10 2021-02-10 Telephone Ld [facility] 1.2.840.114 [id number] Univers 00:00:00 00:00:00 Christy Honeycutt 350.1.13.10 ity [place] [facility] [phone] [place] dical [facility] 044 [facility] 2021-02-09 2021-02-09 Orders Doctor VENANCIO 1.2.840.114 [id number] Univers 00:00:00 00:00:00 Only Unassigned, SHANIA 350.1.13.10 ity of [place] [facility] 4.2.7.2.686 Asher as [phone] [facility] [address] 2021-02-09 2021-02-09 [facility] 1.2.840.114 [id number] Univers 00:00:00 00:00:00 Christy Honeycutt 350.1.13.10 ity [place] [facility] [phone] [place] dical nal [address] 2021-02-05 2021-02-05 Ancillary Kandice, Ashly [facility] 1.2.840.114 [id number] Univers 14:07:10 14:37:10 Visit Yasmin Veliz 350.1.13.10 ity [facility] [place].2.[place] [phone] [facility] [address] 2021-02-05 2021-02-05 Outpatient R [facility] [id number] Univers 14:00:00 14:00:00 ity of [facility] 2021-02-05 2021-02-05 Outpatient R NADIAPH, [facility] [id number] Univers 14:00:00 14:00:00 YASMIN ity [facility] 2021-02-05 2021-02-05 Outpatient R NADIAPH, [facility] [id number] Univers 14:00:00 14:00:00 YASMIN ity [facility] 2021-02-05 2021-02-05 Outpatient R NADIAPH, [facility] [id number] Univers 14:00:00 14:00:00 YASMIN ity [facility] 2021-02-04 2021-02-04 [facility] 1.2.840.114 [id number] Univers 13:26:29 23:59:00 Encounter Christy Honeycutt 350.1.13.10 it[place] [phone] [facility] [address] 2021-02-04 2021-02-04 [facility] 1.2.840.114 [id number] Univers 13:22:44 13:25:00 Encounter Christy [place] 350.1.13.10 ity of [place] [phone] [facility] [address] 2021-02-04 2021-02-04 [facility] [id number] Univers 00:00:00 00:00:00 [facility] 2021-02-02 2021-02-02 Orders Doctor VENANCIO 1.2.840.114 [id number] Univers 00:00:00 00:00:00 Only Unassigned, SHANIA 350.1.13.10 ity of [place] [facility] 4.2.7.2.686 Asher as [phone] [address] 2021-01-27 2021-01-27 Telemedici [facility] 1.2.840.114 [id number] Univers 08:13:50 13:38:57 ne Visit Christy Honeycutt 350.1.13.10 ity of [place]2.[place] [facility] [phone] [place] dic[address] 2021-01-27 2021-01-27 [facility] [id number] Univers 08:00:00 08:00:00 [facility]Y [facility] [place] 2021-01-25 2021-01-25 Outpatient R [facility]OC[facility] [id number] Univers 13:00:00 13:00:00 KAN [facility] [place] 2021-01-25 2021-01-25 Outpatient [facility] [id number] Univers 13:00:00 13:00:00 [facility] 2021-01-21 2021-01-21 Orders Doctor VENANCIO 1.2.840.114 [id number] Univers 00:00:00 00:00:00 Only Unassigned, SHANIA 350.1.13.10 ity of [place] [facility] 4.2.7.2.686 Asher as [phone] [address] 2021-01-09 2021-01-09 [facility] 1.2.840.114 [id number] Univers 00:00:00 00:00:00 Management Christy Honeycutt 350.1.13.10 it[place] [phone] [facility] 231 [facility] 2021-01-08 2021-01-08 Medical Research Associate 2, Adc Lab [facility] 1.2.840.114 [id number] Univers 16:23:20 16:38:20 Visit Christy Jaffe Norah Yinka 350.. 13.10 ity of [place] [phone] [facility] 353 [facility] 2021-01-08 2021-01-08 Outpatient R MARJORIE [facility] [id number] Univers 14:00:00 15:59:28 [facility] 2021-01-08 2021-01-08 Outpatient R MARJORIE [facility] [id number] Univers 14:00:00 15:59:28 [facility] 2021-01-08 2021-01-08 Outpatient [facility] [id number] Univers 14:00:00 15:59:28 [facility] 2021-01-08 2021-01-08 Office [facility] 1.2.926.741 [id number] Univers 13:51:22 15:59:28 Visit Loco [facility] 350.1.13.10 it y of [place] 4.2.7.2.686 Asher as Samson?Blea [phone] [facility] [address] Medical Office Building 2021-01-07 2021-01-08 Telemedici [facility] 1.2.840.114 [id number] Univers 08:19:34 09:59:59 ne Visit Christy A Yinka 350.1.13.10 ity of [place] [phone] [facility] 231 [facility] 2021-01-08 2021-01-08 Orders Doctor VENANCIO 1.2.840.114 [id number] Univers 00:00:00 00:00:00 Only Unassigned, SHANIA 350.1.13.10 ity of [facility] 4.2.7.2.686 Asher as [phone] [address] 2021-01-07 2021-01-07 Outpatient Hank [facility] [id number] Univers 15:20:00 15:20:00 CHRISTY ity [facility] 2021-01-04 2021-01-04 Telephone [facility] 1.2.840.114 [id number] Univers 00:00:00 00:00:00 Christy Honeycutt 350.1.13.10 it[place] [phone] [facility] 044 [facility] 2021-01-01 2021-01-[address] [facility] 1.2.840.114 [id number] Univers 00:00:00 00:00:00 Christy Honeycutt 350.1.13.10 it[place] [phone] [facility] 231 [facility] 2020-12-17 2020-12-17 Outpatient Hank [facility] [id number] Univers 11:00:00 11:51:01 BRODY jaja [facility] 2020-12-17 2020-12-17 Outpatient Hank FERRER [facility] [id number] Univers 11:00:00 11:51:01 BRODY bergman [facility] 2020-12-17 2020-12-17 Outpatient Hank FERRER [facility] [id number] Univers 11:00:00 11:51:01 BRODY [facility] 2020-12-14 2020-12-14 Outpatient Hank COURTNEY [facility] [id number] Univers 14:00:00 14:00:00 KAN bergman [facility] 2020-12-14 2020-12-14 Outpatient Hank COURTNEY [facility] [id number] Univers 14:00:00 14:00:00 [facility] 2020-12-14 2020-12-14 Outpatient R SHERWIN [facility] [id number] Univers 14:00:00 14:00:00 KAN [facility] 2020-12-11 2020-12-11 Outpatient R TRENT [facility] [id number] Univers 11:00:00 11:00:00 [facility] 2020-12-11 2020-12-11 Outpatient R TRENT [facility] [id number] Univers 11:00:00 11:00:00 [facility] 2020-12-11 2020-12-11 Outpatient R TRENT [facility] [id number] Univers 11:00:00 11:00:00 [facility] 2020-11-27 2020-11-27 Outpatient R DARLING [facility] [id number] Univers 15:00:00 15:00:00 [facility] 2020-11-27 2020-11-27 Outpatient R DARLING [facility] [id number] Univers 15:00:00 15:00:00 [facility] 2020-11-27 2020-11-27 Outpatient R GIULIANA [facility] [id number] Univers 10:00:00 10:00:00 [facility] 2020-11-27 2020-11-27 Outpatient R GIULIANA [facility] [id number] Univers 10:00:00 10:00:00 [facility] 2020-11-27 2020-11-27 Outpatient R GIULIANA [facility] [id number] Univers 10:00:00 10:00:00 [facility] 2020-11-27 2020-11-27 Outpatient R GIULIANA [facility] [id number] Univers 10:00:00 10:00:00 [facility] 2020-11-24 2020-11-24 Outpatient R LD [facility] [id number] Univers 15:00:00 15:00:00 CHRISTY [facility] 2020-11-20 2020-11-20 Outpatient R TRENT [facility] [id number] Univers 10:30:00 10:30:00 [facility] 2020-11-20 2020-11-20 Outpatient R TRENT [facility] [id number] Univers 10:30:00 10:30:00 [facility] 2020-11-20 2020-11-20 Outpatient R TRENT [facility] [id number] Univers 10:30:00 10:30:00 [facility] 2020-11-09 2020-11-09 Outpatient R GRAF, [facility] [id number] Univers 10:15:00 [facility]:15:[facility] 2020-[facility] 2020-11-09 Outpatient R SHERWIN [facility] [id number] Univers 00:00:00 00:00:00 [facility] 2020-11-03 2020-11-03 Outpatient R LD [facility] [id number] Univers 13:40:00 13:40:00 CHRISTY [facility] 2020-11-02 2020-11-02 Outpatient R SHERWIN [facility] [id number] Univers 13:30:00 13:30:00 [facility] 2020-11-02 2020-11-02 Outpatient R SHERWIN [facility] [id number] Univers 13:30:00 13:30:00 [facility] 2020-11-02 2020-11-02 Outpatient R SHERWIN [facility] [id number] Univers 13:30:00 13:30:00 [facility] 2020-10-30 2020-10-30 Outpatient R DARLING [facility] [id number] Univers 15:00:00 15:00:00 CECIL [facility] 2020-10-30 2020-10-30 Outpatient R BALDEV [facility] [id number] Univers 10:15:00 10:15:00 PETRA bergman [facility] 2020-10-30 2020-10-30 Outpatient R BALDEV, [facility] [id number] Univers 10:15:00 10:15:00 PETRA bergman [facility] 2020-10-30 2020-10-30 Outpatient R BALDEV [facility] [id number] Univers 10:15:00 10:15:00 PETRA bergman [facility] 2020-10-26 2020-10-26 Outpatient R GABRIEL [facility] [id number] Univers 09:00:00 09:00:00 VERÓNICA ity [facility] 2020-10-02 2020-10-02 Outpatient R GAGAN [facility] [id number] Univers 15:15:00 15:45:17 PRAVEEN bergman [facility] 2020-10-02 2020-10-02 Outpatient R GAGAN [facility] [id number] Univers 15:15:00 15:45:17 PRAVEEN bergman [facility] 2020-10-02 2020-10-02 Outpatient R DARLING [facility] [id number] Univers 13:00:00 14:37:46 CECIL jaja [facility] 2020-10-02 2020-10-02 Outpatient R DARLING [facility] [id number] Univers 13:00:00 14:37:46 CECIL bergman [facility] 2020-09-30 2020-09-30 Outpatient R EKTA [facility] [id number] Univers 00:00:00 00:00:00 YAZMIN bergman o cecelia [facility] 2020-09-24 2020-09-24 Outpatient R EKTA [facility] [id number] Univers 08:30:00 08:30:00 YAZMIN bergman o f [facility] 2020-09-11 2020-09-11 Outpatient Hank GIORDANO [facility] [id number] Univers 11:15:00 11:39:07 FANY madalyn [facility] 2020-09-11 2020-09-11 Outpatient R GIULIANA [facility] [id number] Univers 11:15:00 11:39:07 FANY bergman [facility] 2020-09-05 2020-09-05 Outpatient R YULI [facility] [id number] Univers 00:00:00 00:00:00 CHENTE jaja [facility] 2020-09-01 2020-09-01 Outpatient R YULI [facility] [id number] Univers 15:20:00 15:20:00 CHENTE jaja [facility] 2020-05-29 2020-05-29 Outpatient R YULI [facility] [id number] Univers 09:00:00 09:00:00 CHENTE [facility] 2020-05-26 2020-05-26 Outpatient R [facility] [id number] Univers 14:00:00 14:00:00 [facility] 2020-05-13 2020-05-13 [facility] [id number] Univers 09:00:00 09:00:00 CHENTE [facility] 2020-05-09 2020-05-09 Emergency X PEREZ, [facility] ERT [id number] Univers 18:13:00 22:23:00 ZULMA [facility] 2020-05-09 2020-05-09 Outpatient R SHAHIDA [facility] [id number] Univers 18:00:00 18:00:00 QI [facility] 2020-05-09 2020-05-09 Outpatient R SHAHIDA [facility] [id number] Univers 17:40:00 17:40:00 QI [facility] 2020-04-16 2020-04-16 Outpatient R LD [facility] [id number] Univers 13:04:56 23:59:00 [facility]-20 2020-03-20 Outpatient R LD [facility] [id number] Univers 16:40:00 16:40:00 [facility] 2020-02-14 2020-02-14 Outpatient [facility] [id number] Memoria 10:59:19 16:50:00 hank putnam [facility] 2020-02-14 2020-02-14 Outpatient nullFlavo [facility] [id number] Memoria 10:59:19 16:50:00 r Jean putnam [facility] 2020-02-14 2020-02-14 Outpatient nullFlavo [facility] [id number] Memoria 05:59:19 11:50:00 r indy Pena 2020-02-14 2020-02-14 Outpatient Oseas Ho [id number] 05:59:19 11:50:00 8 2019-12-26 2019-12-26 Outpatient R GUERITA, [facility] [id number] Univers 15:10:00 15:10:00 [facility] [place] 2019-12-03 2019-12-03 [facility] [id number] Univers 08:40:00 08:40:00 CHRISTY [facility] 2019-11-26 2019-11-26 [facility] [id number] Univers 15:40:00 15:40:00 [facility] 2019-11-14 2019-11-14 Outpatient R GUERITA [facility] [id number] Univers 16:20:00 16:20:00 LY [facility] 2019-11-13 2019-11-13 Outpatient R [facility] [id number] Univers 11:40:00 11:40:00 [facility] [place] 2019-11-10 2019-11-10 Outpatient R DARIUS [facility] [id number] Univers 17:00:00 17:00:00 GILBERT [facility] [place] 2019-11-01 2019-11-01 Out[facility] [id number] Univers 13:07:42 23:59:00 LY [facility] [place] 2019-10-17 2019-10-17 Outpatient [facility] [id number] Univers 13:20:00 13:20:00 [facility] 2019-10-03 2019-10-03 Outpatient [facility] [id number] Univers 15:44:01 23:59:00 LY madalyn [facility] 2019-09-27 2019-09-27 Outpatient R DONALD [facility] [id number] Univers 10:15:33 23:59:00 KEVIN madalyn [facility] 2019-09-06 2019-09-06 Outpatient R NORBERTOMÓNICAREANNA [facility] [id number] Univers 09:40:00 09:40:00 CHENTE bergman [facility] 2019-08-27 2019-08-27 Outpatient R LD [facility] [id number] Univers 08:00:00 08:00:00 CHRISTY bergman [facility] 2019-08-02 2019-08-02 Outpatient R LD [facility] [id number] Univers 16:00:00 16:00:00 CHRISTY jaja [facility] 2019-07-16 2019-07-16 Outpatient R BOYD [facility] [id number] Univers 15:00:00 15:00:00 JAHAIRA fuentes f [facility] 2019-07-11 2019-07-11 Outpatient R ARLEY [facility] [id number] Univers 15:00:00 15:00:00 KRISTOFER bergman [facility] 2019-05-10 2019-05-10 Outpatient R GABRIEL [facility] [id number] Univers 14:25:28 23:59:00 VERÓNICA jaja [facility] Results This patient has no known results.
[2022-03-21] MEDS ORDERED: CEFAZOLIN SODIUM 1 GM/VIAL ONE (05:00)
[2022-03-21] MEDS ORDERED: ONDANSETRON 4 MG/2 ML VIAL ONE (05:01)
[2022-03-21] MEDS ORDERED: FENTANYL CITR 100 MCG/2 ML ONE ×2 (05:01→05:34)
[2022-03-21] MEDS ORDERED: NA CHLORIDE 0.9% 100 ML IV ONE (05:02)
[2022-03-21 05:39] LABS: Hematocrit 38.1 % (36.0-45.0); MCV 84.9 fL (80-100); MPV 8.1 fL (7.6-11.3)
[2022-03-21] MEDS ORDERED: HYDROMORPHONE HCL 1 MG/ML INJ ONE (05:40)
[2022-03-21 05:49] LABS: SARS-CoV-2 Antigen Rapid Res Negative (Negative)
[2022-03-21 05:54] LABS: Potassium 4.4 mmol/L (3.5-5.1)
--- NOTE | 2022-03-21 06:38 | ER ---
Nurse's Notes [facility] Name: Petra Braun Age: 66 yrs Sex: Female : 1955 Arrival Date: 03/21/2022 Time: 04:43 Bed 19 Private MD: Diagnosis: Left leg, open, comminuted, both bone, distal tib-fib fracture Presentation: 03/21 04:55 Chief complaint: EMS states: they were toned out for pt who lost her balance and fell bb causing an open tib/fib fracture. Care prior to arrival: Medication(s) given: Normal saline infusion, zofran 4 mg, fentanyl 75 mcg, Ancef 1 gram. Mechanism of Injury: Fall from standing position. Trauma event details: Injury occurred in the [facility], Injury occurred: at home. Injury occurred: March 21, 2022. 04:55 Acuity: OMAR 2 bb 04:55 Method Of Arrival: EMS: [facility] bb 04:58 Coronavirus screen: At this time, the client does not indicate any symptoms associated bb with coronavirus-19. Ebola Screen: No symptoms or risks identified at this time. Initial Sepsis Screen: Does the patient meet any 2 criteria? No. Patient's initial sepsis screen is negative. Does the patient have a suspected source of infection? No. Patient's initial sepsis screen is negative. Risk Assessment: Do you want to hurt yourself or someone else? Patient reports no desire to harm self or others. Onset of symptoms was March 21, 2022. Trauma Activation: Physician: ED Physician; Name: [place]; Notified At: 04:47; Arrived At: 04:47 Physician: General Surgeon; Name: ; Notified At: 04:47; Arrived At: Physician: Radiology; Name: ; Notified At: 04:47; Arrived At: Physician: Respiratory; Name: ; Notified At: 04:47; Arrived At: Physician: Lab; Name: ; Notified At: 04:47; Arrived At: Historical: - Allergies: 04:59 PENICILLINS; bb 04:59 Sulfa (Sulfonamide Antibiotics); bb - Home Meds: 04:59 Albuterol Inhl [Active]; clonazepam Oral [Active]; colesevelam oral [Active]; bb Cyclobenzaprine Oral [Active]; Flovent Inhl [Active]; gabapentin oral [Active]; ipratropium bromide inhalation [Active]; Lorazepam Oral [Active]; losartan oral [Active]; meloxicam oral [Active]; Omeprazole Oral [Active]; Promethazine Oral [Active]; sertraline oral [Active]; Tramadol Oral [Active]; Trazodone Oral [Active]; Vitamin C [Active]; - 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 - Social history:: Smoking status: unknown. Screenin:55 Abuse screen: Denies threats or abuse. Tuberculosis screening: No symptoms or risk bb factors identified. 06:01 Nutritional screening: No deficits noted. Fall Risk Fall in past 12 months (25 points). kd3 IV access (20 points). Primary Survey: :55 NO uncontrolled hemorrhage observed. A: The client is awake and alert. The airway is bb patent. Breathing/Chest: Spontaneous respiratory effort, equal unlabored respirations, breath sounds clear bilaterally, regular pattern, symmetrical chest rise and fall. Circulation: No external hemorrhage present. Regular and strong central pulse, skin warm/dry/normal color. Disability Client is alert. 06:02 Exposure/Environment: There is no evidence of uncontrolled external bleeding. Obvious kd3 injury(ies) are noted at this time: deformity to the left lower extremity. Reassessment Alertness and Airway: Awake and alert. The airway is patent. Airway Patent Breathing: Spontaneous respiratory effort, equal unlabored respirations, breath sounds clear bilaterally, regular pattern with symmetrical chest rise and fall. Respiratory effort Spontaneous Breath sounds Clear Respiratory pattern Regular Chest inspection Symmetrical Circulation: No external hemorrhage noted. Regular and strong central pulse, skin warm/dry/normal color. Pulses Palpable Color [place] Temperature Warm. Secondary Survey: 06:02 HEENT: Head No injury/deformity Face No injury/deformity Eyes: No injury or deformity kd3 noted. Ears: clear bilaterally. Nose: clear Throat: No injury or deformity noted. Gastrointestinal: No deficits noted. : No deficits noted. Musculoskeletal: Circulation, motion, and sensation intact. Bony deformity noted of left leg. Injury Description: Deformity sustained to left leg. Assessment: 04:45 General: Appears uncomfortable, Behavior is cooperative, anxious. Pain: Complains of kd3 pain in lateral aspect of left calf, left calf, medial aspect of left calf and left kurtz. Neuro: Level of Consciousness is awake, alert, obeys commands, Oriented to person, place, time, situation. Respiratory: Airway is patent Trachea midline Respiratory effort is even, unlabored, Respiratory pattern is regular, symmetrical. 04:45 Injury Description: Deformity sustained to medial aspect of left calf and left kurtz kd3 Laceration sustained to left kurtz. Vital Signs: 04:55 Weight 122.47 kg (R); Height 6 ft. 0 in. (182.88 cm) (R); Pain 5/10; bb 05:25 BP 96 / 70; Pulse 84; Resp 24; Temp 98.2(O); Pulse Ox 94% on R/A; kd3 05:30 BP 112 / 94; Pulse 88; Resp 18 S; Pulse Ox 98% ; aa9 05:45 BP 103 / 75; Pulse 85; Resp 18 S; Pulse Ox 98% on R/A; aa9 06:15 Pulse 80; Resp 15; Pulse Ox 92% on 3 lpm NC; kd3 04:55 Body Mass Index 36.62 (122.47 kg, 182.88 cm) bb [place] Coma Score: 04:55 Eye Response: spontaneous(4). Verbal Response: oriented(5). Motor Response: obeys bb commands(6). Total: 15. 05:25 Eye Response: spontaneous(4). Verbal Response: oriented(5). Motor Response: obeys kd3 commands(6). Total: 15. Trauma Score (Adult): 04:55 Eye Response: spontaneous(1); Verbal Response: oriented(1); Motor Response: obeys bb commands(2); Systolic BP: > 89 mm Hg(4); Respiratory Rate: 10 to 29 per min(4); Keerthi Score: 15; Trauma Score: 12 05:25 Eye Response: spontaneous(1); Verbal Response: oriented(1); Motor Response: obeys kd3 commands(2); Systolic BP: > 89 mm Hg(4); Respiratory Rate: 10 to 29 per min(4); Keerthi Score: 15; Trauma Score: 12 ED Course: 04:43 Patient arrived in ED. bb 04:55 Patient has correct armband on for positive identification. Call light in reach. Side bb rails up X2. Adult w/ patient. 04:55 Patient maintains SpO2 saturation greater than 95% on room air. bb 04:57 Triage completed. bb 04:59 Arm band placed on Patient placed in an exam room, on a stretcher, on automotive service professional, bb on pulse oximetry. 05:00 Loco Onofre MD is Attending Physician. kdr 05:11 Michelle Burns RN is Primary Nurse. kd3 05:34 SARS RAPID Sent. aa9 05:39 Tib Fib Left In Process Unspecified. EDMS 06:01 Assist provider with fracture care of lateral aspect of left calf, left calf, medial kd3 aspect of left calf and left kurtz. Maintain EMS IV. Dressing intact. Good blood return noted. Site clean \T\ dry. 06:05 Thermoregulation: warm blanket given to patient. kd3 Administered Medications: 05:15 Drug: fentaNYL (PF) 50 mcg Route: IVP; Site: left wrist; kd3 06:47 Follow up: Response: No adverse reaction; Pain is decreased kd3 05:15 Drug: Ancef (cefazolin) 1 grams Route: IVPB; Site: left wrist; kd3 06:47 Follow up: Response: No adverse reaction; IV Status: Completed infusion kd3 05:15 Drug: Zofran (Ondansetron) 4 mg Route: IVP; Site: left wrist; kd3 06:47 Follow up: Response: No adverse reaction kd3 05:45 Drug: fentaNYL (PF) 50 mcg Route: IVP; Site: left wrist; kd3 06:46 Follow up: Response: No adverse reaction; Pain is decreased kd3 06:00 Drug: Dilaudid (HYDROmorphone) 1 mg Route: IVP; Site: left wrist; kd3 06:46 Follow up: Response: No adverse reaction; Pain is decreased kd3 Medication: 04:45 VIS not applicable for this client. kd3 Intake: 04:55 PO: 0ml; Total: 0ml. bb Outcome: 06:37 ER care complete, transfer ordered by . kdr 07:14 Patient left the ED. kc6 Signatures: Dispatcher [employer] Loco Doe MD MD kdr Anabel Walker RN RN bb Michelle Burns RN RN kd3 Tanya Senior RN RN aa9 Estela Oden RN RN kc6 Corrections: (The following items were deleted from the chart) 06:11 05:20 fentaNYL (PF) 50 mcg IVP in left wrist kd3 kd3
--- NOTE | 2022-03-21 06:38 | EDPHYS ---
Physician Documentation [facility] Name: Petra Braun Age: 66 yrs Sex: Female : 1955 Arrival Date: 03/21/2022 Time: 04:43 Bed 19 Private MD: ED Physician Loco Onofre HPI: 03/21 06:29 This 66 yrs old Female presents to ER via EMS with complaints of Left leg pain.. kdr 06:31 The patient presents with decreased range of motion, a deformity, an injury, a kdr laceration, pain, that is acute. The complaints affect the lateral aspect of left calf, left lateral ankle, left Achilles, left kurtz and anterior aspect of left ankle. Context: The problem was sustained at home, resulted from the patient falling, a mis-step, the patient is not able to bear weight, the patient is not able to ambulate, Problem is a result from a previous injury: No. Onset: The symptoms/episode began/occurred suddenly, just prior to arrival. Modifying factors: The symptoms are alleviated by nothing. the symptoms are aggravated by movement. Associated signs and symptoms: The patient has no apparent associated signs or symptoms. Treatment prior to arrival includes: caitlin wrap, prescription medications, splinting the affected extremity. Severity of symptoms: At their worst the symptoms were incapacitating, in the emergency department the symptoms are unchanged. The patient has not experienced similar symptoms in the past. The patient has not recently seen a physician. 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 - Social history:: Smoking status: unknown. ROS: 06:31 Constitutional: Negative for fever, chills, and weight loss, Eyes: Negative for injury, kdr pain, redness, and discharge, Neck: Negative for injury, pain, and swelling, Cardiovascular: Negative for chest pain, palpitations, and edema, Respiratory: Negative for shortness of breath, cough, wheezing, and pleuritic chest pain, Abdomen/GI: Negative for abdominal pain, nausea, vomiting, diarrhea, and constipation, Back: Negative for injury and pain, : Negative for injury, bleeding, discharge, and swelling, Skin: Negative for injury, rash, and discoloration, Neuro: Negative for headache, weakness, numbness, tingling, and seizure activity. Psych: Negative for depression, anxiety, suicide ideation, homicidal ideation, and hallucinations, Allergy/Immunology: Negative for hives, rash, and allergies, Endocrine: Negative for neck swelling, polydipsia, polyuria, polyphagia, and marked weight changes, Hematologic/Lymphatic: Negative for swollen nodes, abnormal bleeding, and unusual bruising. 06:31 MS/extremity: Positive for injury or acute deformity, decreased range of motion, laceration, pain, There is an obvious open fracture to the distal left extremity with instability of the left ankle. Exam: 06:31 Constitutional: This is a well developed, well nourished patient who is awake, alert, kdr and in no acute distress. Head/Face: Normocephalic, atraumatic. Eyes: Pupils equal round and reactive to light, extra-ocular motions intact. Lids and lashes normal. Conjunctiva and sclera are non-icteric and not injected. Cornea within normal limits. Periorbital areas with no swelling, redness, or edema. Neck: Trachea midline, no thyromegaly or masses palpated, and no cervical lymphadenopathy. Supple, full range of motion without nuchal rigidity, or vertebral point tenderness. No Meningismus. Respiratory: Lungs have equal breath sounds bilaterally, clear to auscultation and percussion. No rales, rhonchi or wheezes noted. No increased work of breathing, no retractions or nasal flaring. 06:31 Musculoskeletal/extremity: Extremities: grossly normal except: noted in the left leg: decreased ROM, erythema, laceration, pain, rash, tenderness. Vital Signs: 04:55 Weight 122.47 kg (R); Height 6 ft. 0 in. (182.88 cm) (R); Pain 5/10; bb 05:25 BP 96 / 70; Pulse 84; Resp 24; Temp 98.2(O); Pulse Ox 94% on R/A; kd3 05:30 BP 112 / 94; Pulse 88; Resp 18 S; Pulse Ox 98% ; aa9 05:45 BP 103 / 75; Pulse 85; Resp 18 S; Pulse Ox 98% on R/A; aa9 06:15 Pulse 80; Resp 15; Pulse Ox 92% on 3 lpm NC; kd3 04:55 Body Mass Index 36.62 (122.47 kg, 182.88 cm) bb Ke[place] Coma Score: 04:55 Eye Response: spontaneous(4). Verbal Response: oriented(5). Motor Response: obeys bb commands(6). Total: 15. 05:25 Eye Response: spontaneous(4). Verbal Response: oriented(5). Motor Response: obeys kd3 commands(6). Total: 15. Trauma Score (Adult): 04:55 Eye Response: spontaneous(1); Verbal Response: oriented(1); Motor Response: obeys bb commands(2); Systolic BP: > 89 mm Hg(4); Respiratory Rate: 10 to 29 per min(4); Keerthi Score: 15; Trauma Score: 12 05:25 Eye Response: spontaneous(1); Verbal Response: oriented(1); Motor Response: obeys kd3 commands(2); Systolic BP: > 89 mm Hg(4); Respiratory Rate: 10 to 29 per min(4); Keerthi Score: 15; Trauma Score: 12 Procedures: 06:31 Splinting: Splint applied to left leg using Orthoglass splint, applied by tech. nurse. kdr Examined by me, post splint application: neurovascular intact, 2+ distal pulses palpable, brisk capillary refill noted. MDM: 06:31 Data reviewed: vital signs, nurses notes, lab test result(s), radiologic studies. kdr 06:37 Patient medically screened. kdr 06:37 ED course: I discussed the case with the on-call physician for orthopedics (Dr. christina Palacios) who asked me to transfer the patient to a higher level of care.. 03/21 05:12 Order name: SARS RAPID kd3 03/21 05:22 Order name: CBC w/o diff kd3 03/21 05:22 Order name: Basic Metabolic Panel kd3 03/21 05:22 Order name: Type And Screen kd3 03/21 05:39 Order name: Tib Fib Left EDMS Administered Medications: 05:15 Drug: fentaNYL (PF) 50 mcg Route: IVP; Site: left wrist; kd3 06:47 Follow up: Response: No adverse reaction; Pain is decreased kd3 05:15 Drug: Ancef (cefazolin) 1 grams Route: IVPB; Site: left wrist; kd3 06:47 Follow up: Response: No adverse reaction; IV Status: Completed infusion kd3 05:15 Drug: Zofran (Ondansetron) 4 mg Route: IVP; Site: left wrist; kd3 06:47 Follow up: Response: No adverse reaction kd3 05:45 Drug: fentaNYL (PF) 50 mcg Route: IVP; Site: left wrist; kd3 06:46 Follow up: Response: No adverse reaction; Pain is decreased kd3 06:00 Drug: Dilaudid (HYDROmorphone) 1 mg Route: IVP; Site: left wrist; kd3 06:46 Follow up: Response: No adverse reaction; Pain is decreased kd3 Disposition Summary: 03/21/22 06:37 Transfer Ordered Transfer Location: [facility] kdr Reason: Higher level of care kdr Condition: Fair kdr Problem: new kdr Symptoms: have improved kdr Accepting Physician: [facility](03/21/22 07:14) kc6 Diagnosis - Left leg, open, comminuted, both bone, distal tib-fib fracture kdr Discharge Instructions: - Discharge Summary Sheet mm9 Forms: - Medication Reconciliation Form kdr - SBAR form mm9 Signatures: Dispatcher [employer] EDLoco Zacarias MD MD kdr Ballard, Brenda RN Michelle Palma RN RN kd3 Estela Oden RN RN kc6 Corrections: (The following items were deleted from the chart) 05:39 05:21 Ankle Left 3 View+[email or web address] ordered. EDMS EDMS 07:14 06:37 [facility] Will orthopedics kdr kc6
[2022-03-21 07:21] VITALS: TEMP 98.2
[2022-03-21 07:23] VITALS: BP 103/75
[2022-03-21 07:24] VITALS: O2SAT 92
--- NOTE | 2022-03-21 10:31 | RAD REPORT ---
EXAM DESCRIPTION: RAD - Tib Fib Left - 03/21/2022 5:39 am CLINICAL HISTORY: The patient is 66 years old and is Female; SWELLING TECHNIQUE: Frontal and lateral views of the left tibia and fibula. COMPARISON: No relevant prior studies available. FINDINGS/IMPRESSION: BONES/JOINTS: Complete oblique fracture through the distal left tibia with ve ntral apex angulation at the fracture site and approximately 2 cm of craniocaudal overlap between the proximal and distal fracture fragments. Comminuted fracture of the mid left fibular shaft. No dislocation. SOFT TISSUES: Soft tissue swelling about the mid calf. No radiopaque foreign body. Electronically signed by: Lele Lopez MD 03/21/2022 5:49 AM CEREAL SUPERVISOR Due to temporary technical issues with the PACS/Fluency reporting system, reports are being signed by the in house radiologists without review as a courtesy to insure prompt reporting. The interpreting radiologist is fully responsible for the content of the report.
== END 2022-03-21 07:14 | disposition short-term general hospital (02) ==
LOC: ER 04:39
DX: S82.892B Other fracture of left lower leg, initial encounter for open fracture type I or II (principal); I10 Essential (primary) hypertension; Z20.822 Contact with and (suspected) exposure to COVID-19; Z88.0 Allergy status to penicillin; Z88.2 Allergy status to sulfonamides; Z85.3 Personal history of malignant neoplasm of breast; Z90.12 Acquired absence of left breast and nipple
CPT/HCPCS: 96365; 80048; 36415; 86900; 86850; 86901; 85027; 73590; 96375; 99285; 96366; 87811; J3010 ×2; J1170; J2405; J0690